=== PATIENT | female | born 1975 | race American Indian/Alaskan Native ===

== ENCOUNTER 2022-03-10 20:59 | Inpatient (IN) | payer SELFPAY ==
[2022-03-10] MEDS ORDERED: SODIUM CHLORIDE 0.9% 1000 ML 1,000 ML IV ONE (23:33)
--- NOTE | 2022-03-10 23:33 | Emergency Department Report ---
ED Shortness of Breath HPI - General Chief Complaint: Adult Asthma Stated Complaint: SOB/WHEEZING/NAUSEA Time Seen by Provider: 03/10/22 23:07 Source: patient Mode of arrival: Ambulatory Limitations: No Limitations - History of Present Illness Initial Comments: Patient is 46-year-old female with history of asthma and hypertension. Patient presented to the ER complaining of 3-week history of fever, cough productive with greenish sputum associated with shortness of breath. Patient stated that she has been having some nausea but no vomiting. She also reported watery diarrhea. She denied any chest pain or abdominal pain. No recent travel. MD Complaint: shortness of breath, cough -: week(s) (3) Known History Of: asthma Context: recent URI Associated Symptoms: cough - Related Data Allergies Allergy/AdvReac Type Severity Reaction Status Date / Time naproxen Allergy Unknown Verified 03/10/22 21:59 ED Review of Systems ROS: Stated complaint: SOB/WHEEZING/NAUSEA Other details as noted in HPI Comment: All other systems reviewed and negative Constitutional: chills. denies: fever Respiratory: cough, shortness of breath, SOB with exertion, SOB at rest, whe ezing Cardiovascular: palpitations. denies: chest pain Gastrointestinal: nausea, vomiting, diarrhea. denies: abdominal pain Musculoskeletal: denies: back pain Neurological: weakness. denies: headache, numbness, paresthesias, confusion, abnormal gait ED Physical Exam - General Limitations: No Limitations General appearance: alert, in no apparent distress - ENT ENT exam: Present: mucous membranes dry - Neck Neck exam: Present: normal inspection, full ROM. Absent: tenderness, meningismus - Respiratory Respiratory exam: Present: wheezes, rales, rhonchi, decreased breath sounds. Absent: respiratory distress, chest wall tenderness - Cardiovascular Cardiovascular Exam: Present: tachycardia - GI/Abdominal GI/Abdominal exam: Present: soft, normal bowel sounds. Absent: distended, tenderness, guarding, rebound, rigid, organomegaly, mass, bruit, pulsatile mass, hernia - Extremities Exam Extremities exam: Present: normal inspection, full ROM, normal capillary refill. Absent: tenderness - Back Exam Back exam: Present: normal inspection, full ROM. Absent: CVA tenderness (R), CVA tenderness (L) - Neurological Exam Neurological exam: Present: alert, oriented X3, CN II-XII intact, normal gait, reflexes normal. Absent: motor sensory deficit - Psychiatric Psychiatric exam: Present: normal mood - Skin Skin exam: Present: warm, intact, normal color ED Course Vital Signs 03/10/22 03/10/22 03/11/22 21:32 21:33 01:20 Temperature 99.8 F H 99.8 F H Pulse Rate 120 H Respiratory 16 16 Rate Blood Pressure 129/83 O2 Sat by Pulse 92 95 Oximetry 03/11/22 03/11/22 03/11/22 01:30 01:41 01:42 Temperature 98.9 F 98.9 F Pulse Rate 79 89 Respiratory 15 15 Rate Blood Pressure 116/76 133/73 O2 Sat by Pulse 93 97 97 Oximetry ED Medical Decision Making - Lab Data Result diagrams: 03/10/22 23:46 03/10/22 23:46 - Radiology Data Radiology results: report reviewed - Medical Decision Making Patient is 46-year-old female with history of asthma and hypertension. Patient presented to the ER complaining of 3-week history of fever, cough productive with greenish sputum associated with shortness of breath. Patient stated that she has been having some nausea but no vomiting. She also reported watery diarrhea. She denied any chest pain or abdominal pain. No recent travel. Labs reviewed and is unremarkable. CT chest with IV contrast showed multiple cavitary lesions with the largest one at eighth centimeter at the apex concerning for mycobacterial infection. Patient immediately both were negative pressure isolation. I started patient on Rocephin and Zithromax. Blood culture was obtained and sputum culture also. I discussed the patient with Dr. Jacome, he agreed to admit the patient to medical service for further management. Critical Care Time: Yes Critical care time in (mins) excluding proc time.: 35 Critical care attestation.: If time is entered above; I have spent that time in minutes in the direct care of this critically ill patient, excluding procedure time. ED Disposition Clinical Impression: Acute chest pain, Bilateral pneumonia, Pulmonary cavitary lesion Disposition: 09 ADMITTED INPATIENT Is pt being admited?: Yes Condition: Stable Instructions: Chest Pain (ED), Bacterial Pneumonia (ED)
[2022-03-11 00:07] LABS: Basophils # (Auto) 0.1 K/mm3 (0.0-0.1); Basophils % (Auto) 0.8 % (0.0-1.8); Eosinophils % (Auto) 0.8 % (0.0-4.3); Hematocrit 32.6 % (30.3-42.9); Lymphocytes # (Auto) 0.8 K/mm3 (1.2-5.4); Lymphocytes % (Auto) 13.1 % (13.4-35.0); Mean Corpuscular HGB Conc 34 % (30-34); Mean Corpuscular Volume 87 fl (79-97); Monocytes # (Auto) 0.6 K/mm3 (0.0-0.8); Platelet Count 309 K/mm3 (140-440); Red Blood Count 3.74 M/mm3 (3.65-5.03); Red Cell Distribution Width 16.4 % (13.2-15.2)
[2022-03-11 00:18] LABS: Blood Urea Nitrogen 6 mg/dL (7-17); Calcium 8.8 mg/dL (8.4-10.2); Hemolysis Index 5
[2022-03-11 00:20] LABS: BUN/Creatinine Ratio 20
[2022-03-11 00:22] LABS: Alanine Aminotransferase 13 units/L (7-56); Albumin 3.1 g/dL (3.9-5); Bilirubin,Direct 0.3 mg/dL (0-0.2)
[2022-03-11 03:08] LABS: Bilirubin,Urine NEG (Negative); Blood,Urine NEG (Negative); Color,Urine Amber (Yellow); WBC,Urine < 1.0 /HPF (0.0-6.0)
[2022-03-11 03:12] LABS: RBC,Urine < 1.0 /HPF (0.0-6.0)
--- NOTE | 2022-03-11 03:18 | Cat Scan Report ---
CT chest w con INDICATION / CLINICAL INFORMATION: Severe dyspnea TECHNIQUE: Routine CT of the chest following 100 mL Omnipaque [address] scans at this location are performed us ing CT dose reduction for ALARA by means of automated exposure control. COMPARISON: None available. FINDINGS: Multiple large cavitary lesions are identified throughout both lungs the largest within the left apex where there is a large 8 cm cavitary lesion. Multiple additional cavitary lesions and severe consoli dation are identified throughout the left upper lobe. Smaller but large cavitary lesions are identifi ed throughout the left lung. There are multiple smaller cavitary lesions within the right upper lobe, right middle lobe and right lower lobe. Small bilateral pleural effusions are present. Scattered bro nchopneumonia/tree-in-bud type opacities are present within the right lung. There is extensive and severe mediastinal and bilateral hilar adenopathy. Heart size is normal. Review of the upper abdomen demonstrates no acute findings. Review of bone windows demonstrates no significant abnormality. IMPRESSION: 1. Multiple large cavitary lesions identified throughout both lungs most significantly within the lef t upper lobe where there is a large 8 cm cavitary lesion within the left apex. Although somewhat nons pecific these cavitary lesions appear most suggestive of a severe infectious process, likely mycobact erial in etiology. Severe left upper lobe pneumonia. Recommend close follow-up after treatment to ens ure resolution. 2. Severe mediastinal adenopathy is probably reactive. 3. Small bilateral pleural effusions. Signer Name: Nando Ackerman MD Signed: 03/11/2022 3:14 AM Workstation Name: [email or web address]
[2022-03-11] MEDS ORDERED: AZITHROMYCIN/NS 500 MG/250 ML 500 MG/250 ML BAG IV ONE (03:36)
[2022-03-11] MEDS ORDERED: cefTRIAXone/NS 1 GM/50 ML 1 GM/50 ML BAG IV ONE (03:36)
[2022-03-11] MEDS ORDERED: ONDANSETRON 4 MG/2 ML INJ IV PRN (04:01)
[2022-03-11] MEDS ORDERED: MORPHINE 4 MG/1 ML INJ IV PRN (04:01)
[2022-03-11] MEDS ORDERED: MAGNESIUM HYDROXIDE (MOM) ORAL LIQD UDC PO PRN (04:01)
[2022-03-11] MEDS ORDERED: MORPHINE 2 MG/1 ML INJ IV PRN (04:01)
--- NOTE | 2022-03-11 04:13 | History and Physical Report ---
History of Present Illness Date of examination: 03/11/22 Date of admission: 03/11/2022 Chief complaint: Shortness of breath Cough History of present illness: 46-year-old -[place] female with known history of asthma and hypertension presenting to the emergency room today complaining of cough, shortness of breath and fever which has been ongoing for the past 3 weeks. Cough is said to be productive for some greenish sputum. She denies any chest pain. No headache or dizziness and no diaphoresis. Patient denies any nausea vomiting and no abdominal pain. She denies any sick contacts and no recent travel. She denies contact with anyone with COVID-19. Patient indicates that she has had 2 doses of COVID-19 vaccine but yet to receive the booster dose. Patient denies any weight loss or night sweats. Work-up in the emergency room today, chest x-ray reveals severe bilateral airspace pneumonia, cavitary with large cavitation of the left apex. CT of the chest reveals:1. Multiple large cavitary lesions identified throughout both lungs most significantly within the left upper lobe where there is a large 8 cm cavitary lesion within the left apex. Although somewhat nonspecific these cavitary lesions appear most suggestive of a severe infectious process, likely mycobacterial in etiology. Severe left upper lobe pneumonia. Recommend close follow-up after treatment to ensure resolution. 2. Severe mediastinal adenopathy is probably reactive. 3. Small bilateral pleural effusions. Labs unremarkable. Patient commenced on empiric IV antibiotics for pneumonia. Will also be placed on isolation for possible pulmonary TB. Past History Past Medical History: hypertension, other (Asthma) Past Surgical History: No surgical history Social history: no significant social history Family history: no significant family history Medications and Allergies Allergies Allergy/AdvReac Type Severity Reaction Status Date / Time naproxen Allergy Unknown Verified 03/11/22 04:22 Home Medications Medication Instructions Recorded Confirmed Last Taken Type amLODIPine 10 mg QDAY 03/11/22 03/11/22 03/10/22 History Active Meds: Active Medications Acetaminophen (Acetaminophen 325 Mg Tab) 650 mg PO Q4H PRN PRN Reason: Pain MILD(1-3)/Fever >100.5/ROSEN Heparin Sodium (Porcine) (Heparin 5,000 Unit/1 Ml Vial) 5,000 unit SUB-Q Q8HR [facility] Azithromycin (Zithromax/Ns) 500 mg in 250 mls @ 250 mls/hr IV ONCE ONE; Protocol Stop: 03/11/22 04:35 Sodium Chloride (Nacl 0.9% 1000 Ml) 1,000 mls @ 75 mls/hr IV DIRECT [facility] Ceftriaxone Sodium (Rocephin/Ns 2 Gm/100 Ml) 2 gm in 100 mls @ 200 mls/hr IV Q24H [facility]; Protocol Azithromycin (Zithromax/Ns) 500 mg in 250 mls @ 250 mls/hr IV Q24H [facility]; Protocol Magnesium Hydroxide (Magnesium Hydroxide (Mom) Oral Liqd Udc) 30 ml PO Q4H PRN PRN Reason: Constipation Morphine Sulfate (Morphine 2 Mg/1 Ml Inj) 2 mg IV Q4H PRN PRN Reason: Pain, Moderate (4-6) Morphine Sulfate (Morphine 4 Mg/1 Ml Inj) 4 mg IV Q4H PRN PRN Reason: Pain , Severe (7-10) Ondansetron HCl (Ondansetron 4 Mg/2 Ml Inj) 4 mg IV Q8H PRN PRN Reason: Nausea And Vomiting Sodium Chloride (Sodium Chloride 0.9% 10 Ml Flush Syringe) 10 ml IV BID CALLY Sodium Chloride (Sodium Chloride 0.9% 10 Ml Flush Syringe) 10 ml IV PRN PRN PRN Reason: LINE FLUSH Review of Systems Constitutional: fever, no weight loss, no chills, no poor appetite Ears, nose, mouth and throat: no nasal congestion, no sore throat Cardiovascular: no chest pain, no orthopnea, no palpitations Respiratory: cough, cough with sputum, shortness of breath Gastrointestinal: no abdominal pain, no nausea, no vomiting, no diarrhea Genitourinary Female: no pelvic pain, no flank pain, no dysuria, no hematuria Musculoskeletal: no neck pain, no low back pain Integumentary: no rash, no pruritis Neurological: no headaches, no confusion Psychiatric: no anxiety, no depression Endocrine: no polyphagia, no polydipsia, no polyuria, no nocturia Exam - Constitutional Vitals: Temp Pulse Resp BP Pulse Ox 98.9 F 89 15 133/73 97 03/11/22 01:42 03/11/22 01:42 03/11/22 01:42 03/11/22 01:42 03/11/22 01:42 General appearance: Present: no acute distress, well-nourished - EENT Eyes: Present: PERRL, EOM intact. Absent: scleral icterus ENT: hearing intact, clear oral mucosa, dentition normal - Neck Neck: Present: supple, normal ROM - Respiratory Respiratory effort: normal Respiratory: bilateral: rales (More on the left than the right) - Cardiovascular Rhythm: regular Heart Sounds: Present: S1 & S2. Absent: gallop, systolic murmur, diastolic murmur, rub, click - Extremities Extremities: no ischemia, pulses intact, pulses symmetrical, No edema, normal temperature, normal color, Full ROM Peripheral Pulses: within normal limits - Abdominal General gastrointestinal: Present: soft, non-tender, non-distended, normal bowel sounds. Absent: mass - Integumentary Integumentary: Present: clear, warm, dry, normal turgor. Absent: rash - Musculoskeletal Musculoskeletal: strength equal bilaterally - Psychiatric Psychiatric: appropriate mood/affect, intact judgment & insight, memory intact, cooperative - Neurologic Neurologic: CNII-XII intact, no focal deficits, moves all extremities HEART Score - HEART Score Troponin: Troponin T < 0.010 ng/mL (0.00-0.029) 03/10/22 23:46 Results - Labs CBC & Chem 7: 03/10/22 23:46 03/10/22 23:46 Labs: Abnormal lab results 03/10/22 03/10/22 03/10/22 Range/Units 23:46 23:46 23:46 RDW 16.4 H (13.2-15.2) % Lymph % (Auto) 13.1 L (13.4-35.0) % [place] % (Auto) 9.0 H (0.0-7.3) % Lymph # (Auto) 0.8 L (1.2-5.4) K/mm3 Seg Neutrophils % 76.3 H (40.0-70.0) % Sodium 134 L (137-145) mmol/L Chloride 94.5 L (98-107) mmol/L BUN 6 L (7-17) mg/dL Creatinine 0.3 L (0.6-1.2) mg/dL Glucose 224 H (65-100) mg/dL Direct Bilirubin 0.3 H (0-0.2) mg/dL Alkaline Phosphatase 160 H (35-129) units/L Albumin 3.1 L (3.9-5) g/dL Assessment and Plan - Patient Problems (1) Bilateral pneumonia Current Visit: Yes Status: Acute Plan to address problem: Patient placed on empiric IV antibiotics. Will await culture results. Will also be ruled out for possible TB. (2) Pulmonary cavitary lesion Current Visit: Yes Status: Acute Plan to address problem: Patient will be placed on isolation precautions. Consult placed to infectious disease and pulmonology for evaluation and recommendations. (3) Acute chest pain Current Visit: Yes Status: Acute Plan to address problem: Possibly related to the cough from pneumonia. Will monitor closely. (4) DVT prophylaxis Current Visit: Yes Status: Acute Plan to address problem: Patient placed on subcutaneous heparin. (5) Full code status Current Visit: Yes Status: Acute Plan to address problem: Patient is a full code.
--- NOTE | 2022-03-11 04:56 | XRay Report ---
CHEST 1 VIEW INDICATION / CLINICAL INFORMATION: cough. FINDINGS: SUPPORT DEVICES: None. HEART / MEDIASTINUM: No significant abnormality. LUNGS / PLEURA: Severe bilateral airspace pneumonia, cavitary and type with large cavitation of the l eft apex. Signer Name: Nando Ackerman MD Signed: 03/11/2022 4:52 AM Workstation Name: [id number]
[2022-03-11] MEDS ORDERED: AZITHROMYCIN/NS 500 MG/250 ML 500 MG/250 ML BAG IV SCH (05:00)
[2022-03-11] MEDS: HEPARIN 5,000 UNIT/1 ML VIAL SUB-Q SCH ×3 (05:13→22:51)
[2022-03-11] MEDS: SODIUM CHLORIDE 0.9% 1000 ML 1,000 ML IV SCH ×2 (05:13→10:14)
[2022-03-11] MEDS: cefTRIAXone/NS 2 GM/100 ML 2 GM/100 ML BAG IV SCH (05:14)
[2022-03-11] MEDS ORDERED: AZITHROMYCIN 250 MG TAB PO SCH (10:00)
--- NOTE | 2022-03-11 11:48 | Consultation ---
History of Present Illness - Reason for Consult Consult date: 03/11/22 cavitary lung lesion Requesting physician: LINDA PALUMBO - History of Present Illness The patient is a 46-year-old female with asthma, hypertension admitted with fever, cough, greenish sputum production going on for about 3 months beginning in late November. Upon evaluation in the ER, chest x-ray showed severe bilateral pneumonia, worse on the left side, CT revealed multiple large cavitary lesions bilaterally, large cavitary lesion in the left apex, severe mediastinal lymphadenopathy and small bilateral pleural effusions. Infectious diseases was consulted for additional evaluation. Low-grade fever here. She is otherwise on room air. 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 She reports her uncle with cancer was placed on hospice but also had TB and lived with her. Born and brought up in the [place], no international travel. Lives with her . 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 Denies any incarceration, drug use, alcohol, smoking. No history of homelessness. Has a dog, who is outdoor. Reports prior negative HIV test. Review of Systems: Negative except per HPI Past History Past Medical History: hypertension, other (Asthma) Past Surgical History: No surgical history Social history: no significant social history Family history: no significant family history Medications and Allergies Allergies Allergy/AdvReac Type Severity Reaction Status Date / Time naproxen Allergy Unknown Verified 03/11/22 04:22 Home Medications Medication Instructions Recorded Confirmed Last Taken Type amLODIPine 10 mg QDAY 03/11/22 03/11/22 03/10/22 History Active Meds: Active Medications Acetaminophen (Acetaminophen 325 Mg Tab) 650 mg PO Q4H PRN PRN Reason: Pain MILD(1-3)/Fever >100.5/ROSEN Heparin Sodium (Porcine) (Heparin 5,000 Unit/1 Ml Vial) 5,000 unit SUB-Q Q8HR [facility]ALLY Last Admin: 03/11/22 05:13 Dose: 5,000 unit Sodium Chloride (Nacl 0.9% 1000 Ml) 1,000 mls @ 75 mls/hr IV DIRECT CALLY Last Admin: 03/11/22 10:14 Dose: 75 mls/hr Ceftriaxone Sodium (Rocephin/Ns 2 Gm/100 Ml) 2 gm in 100 mls @ 200 mls/hr IV Q24H [facility]; Protocol Last Admin: 03/11/22 05:14 Dose: 200 mls/hr Magnesium Hydroxide (Magnesium Hydroxide (Mom) Oral Liqd Udc) 30 ml PO Q4H PRN PRN Reason: Constipation Morphine Sulfate (Morphine 2 Mg/1 Ml Inj) 2 mg IV Q4H PRN PRN Reason: Pain, Moderate (4-6) Morphine Sulfate (Morphine 4 Mg/1 Ml Inj) 4 mg IV Q4H PRN PRN Reason: Pain , Severe (7-10) Ondansetron HCl (Ondansetron 4 Mg/2 Ml Inj) 4 mg IV Q8H PRN PRN Reason: Nausea And Vomiting Sodium Chloride (Sodium Chloride 0.9% 10 Ml Flush Syringe) 10 ml IV BID [facility] Last Admin: 03/11/22 10:15 Dose: 10 ml Sodium Chloride (Sodium Chloride 0.9% 10 Ml Flush Syringe) 10 ml IV PRN PRN PRN Reason: LINE FLUSH Physical Examination - Physical Exam Narrative exam: Physical Exam: Constitutional: Alert, cooperative. No acute distress Head, Ears, Nose: Normocephalic, atraumatic. External ears, nose normal Eyes: Conjunctivae/corneas clear. No icterus. No ptosis. Neck: Supple, no meningeal signs Cardiovascular: S1, S2 + Respiratory: Good air entry, clear to auscultation bilaterally GI: Soft, non-tender; bowel sounds normal. No peritoneal signs Musculoskeletal: No pedal edema, no cyanosis. Skin: No rash or abscess Hem/Lymphatic: No palpable cervical or supraclavicular nodes. No lymphangitis Psych: Mood ok. Affect normal Neurological: Awake, alert, oriented. No gross abnormality - Constitutional Vitals: Vital Signs Temp Pulse Resp BP Pulse Ox 98.1 F 89 16 104/72 94 03/11/22 05:13 03/11/22 05:13 03/11/22 05:13 03/11/22 05:13 03/11/22 10:30 Temperature -Last 24 Hours Temperature 98.1 F Temperature 98.9 F Temperature 98.9 F Temperature 99.8 F Temperature 99.8 F Results - Labs CBC & Chem 7: 03/10/22 23:46 03/10/22 23:46 Labs: Abnormal lab results 03/10/22 03/10/22 03/10/22 Range/Units 23:46 23:46 23:46 RDW 16.4 H (13.2-15.2) % Lymph % (Auto) 13.1 L (13.4-35.0) % [place] % (Auto) 9.0 H (0.0-7.3) % Lymph # (Auto) 0.8 L (1.2-5.4) K/mm3 Seg Neutrophils % 76.3 H (40.0-70.0) % Sodium 134 L (137-145) mmol/L Chloride 94.5 L (98-107) mmol/L BUN 6 L (7-17) mg/dL Creatinine 0.3 L (0.6-1.2) mg/dL Glucose 224 H (65-100) mg/dL Direct Bilirubin 0.3 H (0-0.2) mg/dL Alkaline Phosphatase 160 H (35-129) units/L Albumin 3.1 L (3.9-5) g/dL - Imaging and Cardiology Chest x-ray: report reviewed, image reviewed CT scan - chest: report reviewed, image reviewed (b/l cavitary pneumonia L>R) Assessment and Plan Cultures: 03/10/2022 blood culture: In process A/P: 46-year-old female with asthma, hypertension admitted with fever, cough, greenish sputum production going on for about 3 months beginning in late November: #Bilateral cavitary pneumonia, left greater than right #Weight loss, 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
--- NOTE | 2022-03-11 12:43 | Consultation ---
History of Present Illness Consult date: 03/11/22 Requesting physician: LINDA PALUMBO Reason for consult: abnormal CXR/CT History of present illness: 46-year-old -Portuguese female with known history of asthma and hypertension presenting to the emergency room today complaining of cough, shortness of breath which has been ongoing for the past 3 months. She is on a lbuterol and Advair for the asthma. 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 She has unintentional weight loss of 15lbs in the last 2-3 months. She is a life long non smoker. 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 Cough is said to be productive for some greenish sputum. She denies any chest pain. No headache or dizziness and no diaphoresis. Patient denies any nausea vomiting and no abdominal pain. She denies any sick contacts and no recent travel. She denies contact with anyone with COVID-19. Patient indicates that she has had 2 doses of COVID-19 vaccine but yet to receive the booster dose. Denies any incarceration, drug use, alcohol. No history of homelessness. Has a dog, who is outdoor. Reports prior negative HIV test. and lives with her Work-up in the emergency room today, chest x-ray reveals severe bilateral airspace pneumonia, cavitary with large cavitation of the left apex. CT of the chest reveals:1. Multiple large cavitary lesions identified throughout both lungs most significantly within the left upper lobe where there is a large 8 cm cavitary lesion within the left apex. Although somewhat nonspecific these cavitary lesions appear most suggestive of a severe infectious process, likely mycobacterial in etiology. Severe left upper lobe pneumonia. Recommend close follow-up after treatment to ensure resolution. 2. Severe mediastinal adenopathy is probably reactive. 3. Small bilateral pleural effusions. A pulmonary consult was placed. Thank you. The patient was seen and examined. Vitals, labs, medications, chart and imaging reviewed Past History Past Medical History: hypertension, other (Asthma) Past Surgical History: No surgical history Social history: no significant social history Family history: no significant family history Medications and Allergies Allergies Allergy/AdvReac Type Severity Reaction Status Date / Time naproxen Allergy Unknown Verified 03/11/22 04:22 Home Medications Medication Instructions Recorded Confirmed Last Taken Type amLODIPine 10 mg QDAY 03/11/22 03/11/22 03/10/22 History Active Meds: Active Medications Acetaminophen (Acetaminophen 325 Mg Tab) 650 mg PO Q4H PRN PRN Reason: Pain MILD(1-3)/Fever >100.5/ROSEN Heparin Sodium (Porcine) (Heparin 5,000 Unit/1 Ml Vial) 5,000 unit SUB-Q Q8HR [facility] Last Admin: 03/11/22 05:13 Dose: 5,000 unit Sodium Chloride (Nacl 0.9% 1000 Ml) 1,000 mls @ 75 mls/hr IV DIRECT CALLY Last Admin: 03/11/22 10:14 Dose: 75 mls/hr Ceftriaxone Sodium (Rocephin/Ns 2 Gm/100 Ml) 2 gm in 100 mls @ 200 mls/hr IV Q24H [facility]; Protocol Last Admin: 03/11/22 05:14 Dose: 200 mls/hr Magnesium Hydroxide (Magnesium Hydroxide (Mom) Oral Liqd Udc) 30 ml PO Q4H PRN PRN Reason: Constipation Morphine Sulfate (Morphine 2 Mg/1 Ml Inj) 2 mg IV Q4H PRN PRN Reason: Pain, Moderate (4-6) Morphine Sulfate (Morphine 4 Mg/1 Ml Inj) 4 mg IV Q4H PRN PRN Reason: Pain , Severe (7-10) Ondansetron HCl (Ondansetron 4 Mg/2 Ml Inj) 4 mg IV Q8H PRN PRN Reason: Nausea And Vomiting Sodium Chloride (Sodium Chloride 0.9% 10 Ml Flush Syringe) 10 ml IV BID [facility] Last Admin: 03/11/22 10:15 Dose: 10 ml Sodium Chloride (Sodium Chloride 0.9% 10 Ml Flush Syringe) 10 ml IV PRN PRN PRN Reason: LINE FLUSH Review of Systems All systems: negative (as in HPI) Physical Examination Vital signs: Vital Signs Temp Pulse Resp BP Pulse Ox 99.8 F H 120 H 16 129/83 92 03/10/22 21:32 03/10/22 21:32 03/10/22 21:32 03/10/22 21:32 03/10/22 21:32 General appearance: no acute distress, alert, other (thin, chronically ill looking) Eyes: non-icteric ENT: oropharynx moist Neck: supple, no lymphadenopathy Effort: normal Ascultation: Bilateral: diminished breath sounds, rhonchi Cardiovascular: regular rate and rhythm, other (S1,S2) Gastrointestinal: normoactive bowel sounds, soft, non-tender, tender Integumentary: normal Extremities: no cyanosis, no edema, pulses normal normal mental status, non-focal exam, pupils equal and round, CN II-XII normal, motor strength normal and mood appropriate, affect normal Results - Laboratory Findings CBC and BMP: 03/10/22 23:46 03/10/22 23:46 Abnormal lab findings: Abnormal Labs 03/10/22 03/10/22 03/10/22 23:46 23:46 23:46 RDW 16.4 H Lymph % (Auto) 13.1 L [place] % (Auto) 9.0 H Lymph # (Auto) 0.8 L Seg Neutrophils % 76.3 H Sodium 134 L Chloride 94.5 L BUN 6 L Creatinine 0.3 L Glucose 224 H Direct Bilirubin 0.3 H Alkaline Phosphatase 160 H Albumin 3.1 L - Diagnostic Findings CT scan - chest: image reviewed (Destroyed left lung with nodular alveolar densities in the right lung) Assessment and Plan Abnormal CXR/CT scan-Bilateral cavitary infiltrates Mediastinal and hilar adenopathy Weight loss, anorexia with history of TB exposure History of LTBI treatment in 2020 with once weekly therapy, 4 drug therapy per patient x 12 weeks Recommendations -Continue with airborne isolation -Sputum for AFB x3, quantiferon, HIV screen -This does not appear to be an acute bacterial pneumonia, will recommend that we hold antibiotics for now -Supplemental oxygen if needed to keep SpO2 89-92% -Bronchodilators therapy- avoid nebulized therapies -Send labs fro JOHN with reflex, LUC to r/o collagen vascular diseases as possible reason for cavitary infiltrates -Will need bronchoscopy with microbiology brushings, cytology brushings and smears. The differentials include fungal infections, Sarcoidosis and cavitary malignancy. Thank you for consult. Discussed care plan wiht the patient and answered all her questions.
--- NOTE | 2022-03-11 15:15 | Event Note ---
Date: 03/11/22 patient seen and examined And admitted with bilateral cavitary lesion Highly suspicious for pulmonary TB versus fungal infection versus underlying malignancy AFB smear ordered, plan for bronchoscopy next week Continue empiric antibiotics for now
[2022-03-11] MEDS: ACETAMINOPHEN 325 MG TAB PO PRN (17:48)
[2022-03-12] MEDS: SODIUM CHLORIDE 0.9% 1000 ML 1,000 ML IV SCH ×2 (02:15→19:36)
[2022-03-12] MEDS ORDERED: AZITHROMYCIN/NS 500 MG/250 ML 500 MG/250 ML BAG IV SCH (05:00)
[2022-03-12] MEDS: cefTRIAXone/NS 2 GM/100 ML 2 GM/100 ML BAG IV SCH (06:05)
[2022-03-12] MEDS: HEPARIN 5,000 UNIT/1 ML VIAL SUB-Q SCH ×3 (06:05→21:49)
[2022-03-12 06:40] LABS: Basophils % (Auto) 0.9 % (0.0-1.8); Eosinophils # (Auto) 0.1 K/mm3 (0.0-0.4); Eosinophils % (Auto) 1.1 % (0.0-4.3); Hematocrit 30.7 % (30.3-42.9); Hemoglobin 10.1 gm/dl (10.1-14.3); Lymphocytes # (Auto) 0.7 K/mm3 (1.2-5.4); Lymphocytes % (Auto) 14.6 % (13.4-35.0); Mean Corpuscular HGB Conc 33 % (30-34); Mean Corpuscular Volume 87 fl (79-97); Monocytes # (Auto) 0.5 K/mm3 (0.0-0.8); Monocytes % (Auto) 10.4 % (0.0-7.3); Platelet Count 286 K/mm3 (140-440); Red Blood Count 3.54 M/mm3 (3.65-5.03); Red Cell Distribution Width 16.1 % (13.2-15.2)
[2022-03-12 06:43] LABS: Blood Urea Nitrogen 2 mg/dL (7-17); Hemolysis Index 10
[2022-03-12 06:45] LABS: BUN/Creatinine Ratio 10
--- NOTE | 2022-03-12 17:57 | Progress Note ---
Assessment and Plan 46-year-old -[place] female with known history of asthma and hypertension presenting to the emergency room complaining of cough, shortness of breath and fever which has been ongoing for the past 3 weeks. Patient brother had h/o TB and she was treated for positive PPD. Work-up in the emergency room, chest x-ray reveals severe bilateral airspace pneumonia, cavitary with large cavitation of the left apex. CT of the chest reveals:1. Multiple large cavitary lesions identified throughout both lungs most significantly within the left upper lobe where there is a large 8 cm cavitary lesion within the left apex. Although somewhat nonspecific these cavitary lesions appear most suggestive of a severe infectious process, likely mycobacterial in etiology. Severe left upper lobe pneumonia. Recommend close follow-up after treatment to ensure resolution. 2. Severe mediastinal adenopathy is probably reactive. 3. Small bilateral pleural effusions. Patient commenced on empiric IV antibiotics for pneumonia, placed on isolation for possible pulmonary TB. 03/12: cont empiric abx, follow afb smear - if neg plan for bronch on Monday. A/P (1) Bilateral pneumonia Current Visit: Yes Status: Acute Plan to address problem: Patient placed on empiric IV antibiotics. Will await culture results. Will also be ruled out for possible TB. (2) Pulmonary cavitary lesion Current Visit: Yes Status: Acute Plan to address problem: Patient will be placed on isolation precautions. Consult placed to infectious disease and pulmonology for evaluation and recommendations. (3) Acute chest pain Current Visit: Yes Status: Acute Plan to address problem: Possibly related to the cough from pneumonia. Will monitor closely. (4) DVT prophylaxis Current Visit: Yes Status: Acute Plan to address problem: Patient placed on subcutaneous heparin. (5) Full code status Current Visit: Yes Status: Acute Plan to address problem: Patient is a full code. Subjective Date of service: 03/12/22 Interval history: Patient seen and examined. Medical records and medication list reviewed. No acute event overnight noted by the RN. Patient has difficulty breathing on exertion. cough improved Patient is tolerating diet. Discussed plan of care at bedside with patient. Objective - Exam Narrative Exam: GENERAL: AAF lying on bed appeared to be in no discomfort. HEENT: Normocephalic. Atraumatic. No conjunctival congestion or icterus. Patient has moist mucous membranes. NECK: Supple. Trachea midline. CHEST/LUNGS: breathing nonlabored. pt on RA HEART/CARDIOVASCULAR: Regular in rate and rhythm. S1 and S2 positive. ABDOMEN: Abdomen is soft, nontender. Patient has normal bowel sounds. SKIN: There is no rash. Warm and dry. NEURO: No focal motor deficit. Follows command. MUSCULOSKELETAL: No joint effusion or tenderness. EXTRIMITY: No edema, no cyanosis or clubbing. PSYCH: Cooperative. - Constitutional Vitals: Vital Signs - 12hr 03/12/22 03/12/22 03/12/22 10:00 12:06 16:23 Temperature 98.5 F 99.8 F H Pulse Rate 100 H 101 H Respiratory 18 18 Rate Blood Pressure 109/76 126/79 O2 Sat by Pulse 96 93 92 Oximetry - Labs CBC & Chem 7: 03/12/22 05:53 03/12/22 05:53 Labs: Abnormal lab results 03/12/22 03/12/22 Range/Units 05:53 05:53 RBC 3.54 L (3.65-5.03) M/mm3 RDW 16.1 H (13.2-15.2) % Real % (Auto) 10.4 H (0.0-7.3) % Lymph # (Auto) 0.7 L (1.2-5.4) K/mm3 Seg Neutrophils % 73.0 H (40.0-70.0) % Sodium 136 L (137-145) mmol/L Potassium 3.1 L (3.6-5.0) mmol/L BUN 2 L (7-17) mg/dL Creatinine 0.2 L (0.6-1.2) mg/dL Glucose 240 H (65-100) mg/dL Calcium 8.0 L (8.4-10.2) mg/dL HEART Score - HEART Score Troponin: Troponin T < 0.010 ng/mL (0.00-0.029) 03/10/22 23:46
[2022-03-13] MEDS: SODIUM CHLORIDE 0.9% 1000 ML 1,000 ML IV SCH (05:16)
[2022-03-13] MEDS: cefTRIAXone/NS 2 GM/100 ML 2 GM/100 ML BAG IV SCH (05:17)
[2022-03-13] MEDS: HEPARIN 5,000 UNIT/1 ML VIAL SUB-Q SCH ×3 (05:23→21:22)
[2022-03-13] MEDS ORDERED: POTASSIUM CHLORIDE ER 20 MEQ TAB PO ONE (06:21)
[2022-03-13 07:44] LABS: Blood Urea Nitrogen 3 mg/dL (7-17); Calcium 8.4 mg/dL (8.4-10.2); Hemolysis Index 8
[2022-03-13 07:50] LABS: BUN/Creatinine Ratio 10
[2022-03-13] MEDS ORDERED: POTASSIUM CHLORIDE ER 20 MEQ TAB PO NR (11:30)
--- NOTE | 2022-03-13 11:41 | Progress Note ---
Subjective Date of service: 03/13/22 Interval history: 46-year-old -[place]i female with known history of asthma and hypertension presenting to the emergency room today complaining of cough, shortness of breath which has been ongoing for the past 3 months. She is on albuterol and Advair for the asthma. 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 She has unintentional weight loss of 15lbs in the last 2-3 months. She is a life long non smoker. 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 Cough is said to be productive for some greenish sputum. She denies any chest pain. No headache or dizziness and no diaphoresis. Patient denies any nausea vomiting and no abdominal pain. She denies any sick contacts and no recent travel. She denies contact with anyone with COVID-19. Patient indicates that she has had 2 doses of COVID-19 vaccine but yet to receive the booster dose. Denies any incarceration, drug use, alcohol. No history of homelessness. Has a dog, who is outdoor. Reports prior negative HIV test. and lives with her Work-up in the emergency room today, chest x-ray reveals severe bilateral airspace pneumonia, cavitary with large cavitation of the left apex. CT of the chest reveals:1. Multiple large cavitary lesions identified throughout both lungs most significantly within the left upper lobe where there is a large 8 cm cavitary lesion within the left apex. Although somewhat nonspecific these cavitary lesions appear most suggestive of a severe infectious process, likely mycobacterial in etiology. Severe left upper lobe pneumonia. Recommend close follow-up after treatment to ensure resolution. 2. Severe mediastinal adenopathy is probably reactive. 3. Small bilateral pleural effusions. 03/13 patient is alert and oriented, complains of productive cough with greenish sputum. Denies any chest pain, fever or chills. Lab results reviewed ID and pulmonary notes reviewed and appreciated Assessment and plan Bilateral cavitary pneumonia Continue with ceftriaxone per ID recommendations Possible bronchoscopy next week Sputum for AFB x3 QuantiFERON gold test as ordered by ID Hypokalemia Potassium supplemented Monitor electrolytes Hypertension Patient is normotensive off medications History of latent TB diagnosed 2 years ago States she was treated for 12 weeks Hyperglycemia Check A1c Initiate insulin sliding scale coverage Objective - Constitutional Vitals: Vital Signs - 12hr 03/13/22 03/13/22 06:41 07:29 Temperature 98.2 F Pulse Rate 105 H Respiratory 18 Rate Blood Pressure 127/84 O2 Sat by Pulse 96 96 Oximetry General appearance: Present: no acute distress - EENT Eyes: EOM intact ENT: hearing intact, clear oral mucosa - Neck Neck: supple, normal ROM - Respiratory Respiratory effort: normal Respiratory: bilateral: diminished - Cardiovascular Rhythm: regular Heart Sounds: Present: S1 & S2 Extremities: No edema - Gastrointestinal General gastrointestinal: Present: soft, non-tender Rectal Exam: deferred - Genitourinary Female genitourinary: deferred - Integumentary Integumentary: clear - Musculoskeletal Musculoskeletal: strength equal bilaterally - Neurologic Neurologic: no focal deficits, moves all extremities - Psychiatric Psychiatric: appropriate mood/affect - Labs CBC & Chem 7: 03/12/22 05:53 03/13/22 06:58 Labs: Abnormal lab results 03/13/22 Range/Units 06:58 Sodium 135 L (137-145) mmol/L Potassium 3.0 L (3.6-5.0) mmol/L Chloride 96.5 L (98-107) mmol/L BUN 3 L (7-17) mg/dL Creatinine 0.3 L (0.6-1.2) mg/dL Glucose 245 H (65-100) mg/dL HEART Score - HEART Score Troponin: Troponin T < 0.010 ng/mL (0.00-0.029) 03/10/22 23:46
--- NOTE | 2022-03-13 13:21 | Progress Note ---
Assessment and Plan Abnormal CXR/CT scan-Bilateral cavitary infiltrates Mediastinal and hilar adenopathy Weight loss, anorexia with history of TB exposure History of LTBI treatment in 2020 with once weekly therapy, 4 drug therapy per patient x 12 weeks Recommendations -Continue with airborne isolation -Sputum for AFB x3, quantiferon, HIV screen -This does not appear to be an acute bacterial pneumonia, will recommend that we hold antibiotics for now -Supplemental oxygen if needed to keep SpO2 89-92% -Bronchodilators therapy- avoid nebulized therapies -Send labs fro JOHN with reflex, LUC to r/o collagen vascular diseases as possible reason for cavitary infiltrates -Will need bronchoscopy with microbiology brushings, cytology brushings and smears. The differentials include fungal infections, Sarcoidosis and cavitary malignancy. Thank you for consult. Discussed care plan wiht the patient and answered all her questions. Subjective Date of service: 03/13/22 Objective Vital Signs - 12hr 03/13/22 03/13/22 03/13/22 06:41 07:29 11:25 Temperature 98.2 F 98.8 F Pulse Rate 105 H 86 Respiratory 18 18 Rate Blood Pressure 127/84 123/79 O2 Sat by Pulse 96 96 97 Oximetry Constitutional: no acute distress, alert, other (thin, chronically ill looking) Eyes: non-icteric ENT: oropharynx moist Neck: supple, no lymphadenopathy Effort: normal Ascultation: Bilateral: diminished breath sounds, rhonchi Cardiovascular: regular rate and rhythm, other (S1,S2) Gastrointestinal: normoactive bowel sounds, soft, non-tender, tender Integumentary: normal Extremities: no cyanosis, no edema, pulses normal Neurologic: normal mental status, non-focal exam, pupils equal and round, CN II- XII normal, motor strength normal and Psychiatric: mood appropriate, affect normal CBC and BMP: 03/12/22 05:53 03/13/22 06:58 Abnormal lab findings: Abnormal Labs 03/10/22 03/10/22 03/10/22 23:46 23:46 23:46 RBC RDW 16.4 H Lymph % (Auto) 13.1 L Bates % (Auto) 9.0 H Lymph # (Auto) 0.8 L Seg Neutrophils % 76.3 H Sodium 134 L Potassium Chloride 94.5 L BUN 6 L Creatinine 0.3 L Glucose 224 H Calcium Direct Bilirubin 0.3 H Alkaline Phosphatase 160 H Albumin 3.1 L 03/12/22 03/12/22 03/13/22 05:53 05:53 06:58 RBC 3.54 L RDW 16.1 H Lymph % (Auto) Bates % (Auto) 10.4 H Lymph # (Auto) 0.7 L Seg Neutrophils % 73.0 H Sodium 136 L 135 L Potassium 3.1 L 3.0 L Chloride 96.5 L BUN 2 L 3 L Creatinine 0.2 L 0.3 L Glucose 240 H 245 H Calcium 8.0 L Direct Bilirubin Alkaline Phosphatase Albumin
[2022-03-13] MEDS: INSULIN LISPRO 100 UNIT/ML SUB-Q SCH ×2 (16:30→21:37)
[2022-03-13] MEDS: ACETAMINOPHEN 325 MG TAB PO PRN (17:12)
[2022-03-14] MEDS: HEPARIN 5,000 UNIT/1 ML VIAL SUB-Q SCH ×2 (05:02→14:45)
[2022-03-14] MEDS: cefTRIAXone/NS 2 GM/100 ML 2 GM/100 ML BAG IV SCH (05:02)
[2022-03-14] MEDS: ACETAMINOPHEN 325 MG TAB PO PRN ×2 (05:02→16:18)
[2022-03-14 07:45] LABS: Hematocrit 30.6 % (30.3-42.9); Hemoglobin 9.8 gm/dl (10.1-14.3); Mean Corpuscular HGB Conc 32 % (30-34); Mean Corpuscular Volume 88 fl (79-97); Platelet Count 310 K/mm3 (140-440); Red Blood Count 3.47 M/mm3 (3.65-5.03); Red Cell Distribution Width 16.3 % (13.2-15.2)
[2022-03-14 08:12] LABS: Blood Urea Nitrogen 3 mg/dL (7-17); Calcium 8.9 mg/dL (8.4-10.2); Hemolysis Index 0
[2022-03-14 08:20] LABS: BUN/Creatinine Ratio 10
[2022-03-14] MEDS: INSULIN LISPRO 100 UNIT/ML SUB-Q SCH ×3 (10:17→18:30)
--- NOTE | 2022-03-14 10:47 | Progress Note ---
Assessment and Plan Abnormal CXR/CT scan Bilateral cavitary infiltrates Mediastinal and hilar adenopathy Weight loss and Anorexia H/O of TB exposure H/O LTBI treatment in 2019 (once weekly therapy, 4 drug therapy per patient x 12 weeks) - Continue airborne isolation - Sputum for AFB x3 & quantiferon testing - HIV screen - tentative bronchoscopy once active TB ruled out - supplemental oxygen to keep O2 sats > 90% - bronchodilators (CHRIS) with pulm hygiene per RT - continue to avoid nephrotoxins, renally dose all medications - continue mobility protocols to prevent pressure ulcers - PT/OT as tolerated - Wound care per RN/WCT - continue accuchecks with glycemic control per SSI for target blood glucose < 180 mg/dL - tobacco abstinence strongly counseled at the bedside - home oxygen evaluation at discharge - prn analgesia per pain score - GI & VTE prophylaxis - Flu & pneumovax per protocol - Pulmonary out patient follow up for PFTs and optimization of respiratory status - continue other care per attending / other consultants ... re-evaluate in am & prn Subjective Date of service: 03/14/22 Principal diagnosis: Abnormal CT scan; Sebastien. Cavitary Pneumonia; Mediastinal and hilar adenopathy Interval history: Patient is seen today for: Abnormal CXR/CT scan; Bilateral cavitary infiltrates; Mediastinal and hilar adenopathy; Weight loss and Anorexia ; H/O of TB exposure; H/O LTBI treatment in 2019 Seen and examined at bedside; 24hour events reviewed; nursing and respiratory care staff consulted; no adverse overnight events reported to me; resting in bed; denies acute chest pains or SOB; denies hemoptysis; denies night sweats / fevers / chills Objective Vital Signs - 12hr 03/14/22 03:55 Temperature 100.5 F H Pulse Rate 95 H Respiratory 18 Rate Blood Pressure 116/79 O2 Sat by Pulse 90 Oximetry Constitutional: no acute distress, alert, other (thin, chronically ill looking) Eyes: non-icteric ENT: oropharynx moist Neck: supple, no lymphadenopathy Effort: normal Ascultation: Bilateral: diminished breath sounds, rhonchi Percussion: Bilateral: not dull Cardiovascular: regular rate and rhythm, other (S1,S2) Gastrointestinal: normoactive bowel sounds, soft, non-tender, tender, non- distended Integumentary: normal Extremities: no cyanosis, no edema, pulses normal Neurologic: normal mental status, non-focal exam, pupils equal and round, CN II- XII normal, motor strength normal and Psychiatric: mood appropriate, affect normal CBC and BMP: 03/14/22 07:05 03/14/22 07:05 Abnormal lab findings: Abnormal Labs 03/10/22 03/10/22 03/10/22 23:46 23:46 23:46 RBC Hgb RDW 16.4 H Lymph % (Auto) 13.1 L [place] % (Auto) 9.0 H Lymph # (Auto) 0.8 L Seg Neutrophils % 76.3 H Sodium 134 L Potassium Chloride 94.5 L BUN 6 L Creatinine 0.3 L Glucose 224 H POC Glucose Hemoglobin A1c Calcium Direct Bilirubin 0.3 H Alkaline Phosphatase 160 H Albumin 3.1 L 03/12/22 03/12/22 03/13/22 05:53 05:53 06:58 RBC 3.54 L Hgb RDW 16.1 H Lymph % (Auto) [place] % (Auto) 10.4 H Lymph # (Auto) 0.7 L Seg Neutrophils % 73.0 H Sodium 136 L 135 L Potassium 3.1 L 3.0 L Chloride 96.5 L BUN 2 L 3 L Creatinine 0.2 L 0.3 L Glucose 240 H 245 H POC Glucose Hemoglobin A1c Calcium 8.0 L Direct Bilirubin Alkaline Phosphatase Albumin 03/13/22 03/13/22 03/13/22 13:12 16:51 21:09 RBC Hgb RDW Lymph % (Auto) [place] % (Auto) Lymph # (Auto) Seg Neutrophils % Sodium Potassium Chloride BUN Creatinine Glucose POC Glucose 135 H 184 H Hemoglobin A1c 9.1 H Calcium Direct Bilirubin Alkaline Phosphatase Albumin 03/14/22 03/14/22 07:05 07:05 RBC 3.47 L Hgb 9.8 L RDW 16.3 H Lymph % (Auto) [place] % (Auto) Lymph # (Auto) Seg Neutrophils % Sodium Potassium Chloride BUN 3 L Creatinine 0.3 L Glucose 203 H POC Glucose Hemoglobin A1c Calcium Direct Bilirubin Alkaline Phosphatase Albumin Allied health notes reviewed: nursing
--- NOTE | 2022-03-14 13:19 | Progress Note ---
Assessment and Plan Cultures: 03/10/2022 blood culture: no growth 03/11/2022 HIV: Nonreactive 03/12/2022 sputum culture: In process A/P: 46-year-old female with asthma, hypertension admitted with fever, cough, greenish sputum production going on for about 3 months beginning in late November: #Bilateral cavitary pneumonia, left greater than right #Weight loss, anorexia with history of TB exposure #History of LTBI treatment about 2 years ago with once weekly therapy x 12 weeks (likely INH + Rifapentine) Recs: -airborne precautions, F/U AFB x3, QuantiFERON -Follow-up pulmonary plans for bronchoscopy, BAL for AFB, fungal, routine cultures as well as biopsies -Given fever, switched to IV Zosyn -f/u JOHN RANDHAWA MD, FACP, [facility] O: [phone] F: [phone] C: [phone] Subjective Date of service: 03/14/22 Interval history: Cough present. Having fever, T-max over the weekend was 102.9 F, another fever of 101.3 F yesterday, 100.5 today. Objective - Exam Narrative Exam: Physical Exam: Constitutional: Alert, cooperative. No acute distress Head, Ears, Nose: Normocephalic, atraumatic. External ears, nose normal Eyes: Conjunctivae/corneas clear. No icterus. No ptosis. Neck: Supple, no meningeal signs Cardiovascular: S1, S2 + Respiratory: AE fair bilaterally GI: Soft, non-tender; bowel sounds normal. No peritoneal signs Musculoskeletal: No pedal edema, no cyanosis. Skin: No rash or abscess Hem/Lymphatic: No palpable cervical or supraclavicular nodes. No lymphangitis Psych: Mood ok. Affect normal Neurological: Awake, alert, oriented. No gross abnormality - Constitutional Vitals: Vital Signs Temp Pulse Resp BP Pulse Ox 100.5 F H 95 H 18 116/79 90 03/14/22 03:55 03/14/22 03:55 03/14/22 03:55 03/14/22 03:55 03/14/22 03:55 Temperature -Last 24 Hours Temperature 100.5 F Temperature 98.9 F Temperature 97.6 F Temperature 101.3 F - Labs CBC & Chem 7: 03/14/22 07:05 03/14/22 07:05 Labs: Abnormal lab results 03/13/22 03/13/22 03/13/22 Range/Units 13:12 16:51 21:09 RBC (3.65-5.03) M/mm3 Hgb (10.1-14.3) gm/dl RDW (13.2-15.2) % BUN (7-17) mg/dL Creatinine (0.6-1.2) mg/dL Glucose (65-100) mg/dL POC Glucose 135 H 184 H (70-105) mg/dL Hemoglobin A1c 9.1 H (4-6) % 03/14/22 03/14/22 Range/Units 07:05 07:05 RBC 3.47 L (3.65-5.03) M/mm3 Hgb 9.8 L (10.1-14.3) gm/dl RDW 16.3 H (13.2-15.2) % BUN 3 L (7-17) mg/dL Creatinine 0.3 L (0.6-1.2) mg/dL Glucose 203 H (65-100) mg/dL POC Glucose (70-105) mg/dL Hemoglobin A1c (4-6) %
[2022-03-14] MEDS: PIPERACIL/TAZOBACTA 4.5/NS 100 4.5 GM/100 ML VIAL IV SCH (14:45)
--- NOTE | 2022-03-14 16:21 | Progress Note ---
Assessment and Plan 46-year-old -Spanish female with known history of asthma and hypertension presenting to the emergency room complaining of cough, shortness of breath and fever which has been ongoing for the past 3 weeks. Patient brother had h/o TB and she was treated for positive PPD. Work-up in the emergency room, chest x-ray reveals severe bilateral airspace pneumonia, cavitary with large cavitation of the left apex. CT of the chest reveals:1. Multiple large cavitary lesions identified throughout both lungs most significantly within the left upper lobe where there is a large 8 cm cavitary lesion within the left apex. Although somewhat nonspecific these cavitary lesions appear most suggestive of a severe infectious process, likely mycobacterial in etiology. Severe left upper lobe pneumonia. Recommend close follow-up after treatment to ensure resolution. 2. Severe mediastinal adenopathy is probably reactive. 3. Small bilateral pleural effusions. Patient commenced on empiric IV antibiotics for pneumonia, placed on isolation for possible pulmonary TB. 03/12: cont empiric abx, follow afb smear - if neg plan for bronch on Monday. 03/13 patient is alert and oriented, complains of productive cough with greenish sputum. Denies any chest pain, fever or chills. Lab results reviewed, ID and pulmonary notes reviewed and appreciated 03/14: AFB smear pending, bronch pending on AFB smear - reorder the test. clinically improved. follow with supportive care. Assessment and plan --Bilateral cavitary pneumonia Continue with ceftriaxone per ID recommendations Possible bronchoscopy next week Sputum for AFB x3 QuantiFERON gold test as ordered by ID --Hypokalemia Potassium supplemented Monitor electrolytes --Hypertension Patient is normotensive off medications --History of latent TB diagnosed 2 years ago States she was treated for 12 weeks --Hyperglycemia Check A1c Initiate insulin sliding scale coverage Subjective Date of service: 03/14/22 Interval history: Patient seen and examined. Medical records and medication list reviewed. No acute event overnight noted by the RN. Patient has difficulty breathing on exertion but improved. cough improved Patient is tolerating diet. Discussed plan of care at bedside with patient. Objective - Exam Narrative Exam: GENERAL: AAF lying on bed appeared to be in no discomfort. HEENT: Normocephalic. Atraumatic. No conjunctival congestion or icterus. Patient has moist mucous membranes. NECK: Supple. Trachea midline. CHEST/LUNGS: breathing nonlabored. pt on RA HEART/CARDIOVASCULAR: Regular in rate and rhythm. S1 and S2 positive. ABDOMEN: Abdomen is soft, nontender. Patient has normal bowel sounds. SKIN: There is no rash. Warm and dry. NEURO: No focal motor deficit. Follows command. MUSCULOSKELETAL: No joint effusion or tenderness. EXTRIMITY: No edema, no cyanosis or clubbing. PSYCH: Cooperative. - Labs CBC & Chem 7: 03/14/22 07:05 03/14/22 07:05 Labs: Abnormal lab results 03/13/22 03/13/22 03/14/22 Range/Units 16:51 21:09 07:05 RBC 3.47 L (3.65-5.03) M/mm3 Hgb 9.8 L (10.1-14.3) gm/dl RDW 16.3 H (13.2-15.2) % BUN (7-17) mg/dL Creatinine (0.6-1.2) mg/dL Glucose (65-100) mg/dL POC Glucose 135 H 184 H (70-105) mg/dL 03/14/22 03/14/22 03/14/22 Range/Units 07:05 08:53 11:17 RBC (3.65-5.03) M/mm3 Hgb (10.1-14.3) gm/dl RDW (13.2-15.2) % BUN 3 L (7-17) mg/dL Creatinine 0.3 L (0.6-1.2) mg/dL Glucose 203 H (65-100) mg/dL POC Glucose 166 H 131 H (70-105) mg/dL HEART Score - HEART Score Troponin: Troponin T < 0.010 ng/mL (0.00-0.029) 03/10/22 23:46
[2022-03-15] MEDS: INSULIN LISPRO 100 UNIT/ML SUB-Q SCH ×5 (00:11→22:50)
[2022-03-15] MEDS: PIPERACIL/TAZOBACTA 4.5/NS 100 4.5 GM/100 ML VIAL IV SCH ×4 (00:19→22:49)
[2022-03-15] MEDS: HEPARIN 5,000 UNIT/1 ML VIAL SUB-Q SCH ×4 (00:20→22:49)
--- NOTE | 2022-03-15 09:02 | Progress Note ---
Assessment and Plan Assessment and plan: 46-year-old -Maur[place] female with known history of asthma and hypertension presenting to the emergency room complaining of cough, shortness of breath and fever which has been ongoing for the past 3 weeks. Patient brother had h/o TB and she was treated for positive PPD. Work-up in the emergency room, chest x-ray reveals severe bilateral airspace pneumonia, cavitary with large cavitation of the left apex. CT of the chest reveals:1. Multiple large cavitary lesions identified throughout both lungs most significantly within the left upper lobe where there is a large 8 cm cavitary lesion within the left apex. Although somewhat nonspecific these cavitary lesions appear most suggestive of a severe infectious process, likely mycobacterial in etiology. Severe left upper lobe pneumonia. Recommend close follow-up after treatment to ensure resolution. 2. Severe mediastinal adenopathy is probably reactive. 3. Small bilateral pleural effusions. Patient commenced on empiric IV antibiotics for pneumonia, placed on isolation for possible pulmonary TB. 03/12: cont empiric abx, follow afb smear - if neg plan for bronch on Monday. 03/13 patient is alert and oriented, complains of productive cough with greenish sputum. Denies any chest pain, fever or chills. Lab results reviewed, ID and pulmonary notes reviewed and appreciated 03/14: AFB smear pending, bronch pending on AFB smear - reorder the test. clinically improved. follow with supportive care. 03/15; follow-up TB work-up, follow consultants's evaluation and recommendations Possible bronchoscopy per pulmonary Assessment and plan --Bilateral cavitary pneumonia Currently patient is on Zosyn per ID Possible bronchoscopy next week per pulmonary Follow-up sputum for AFB x3 QuantiFERON gold test as ordered by ID Continue airborne precautions Follow pulmonary recommendations --Hypokalemia; Potassium supplemented Monitor electrolytes --Hypertension Patient is normotensive off medications --History of latent TB diagnosed 2 years ago States she was treated for 12 weeks ID following --Hyperglycemia/type 2 diabetes mellitus Check A1c 9.1 Accu-Chek sliding scale coverage ADA diet Long-acting insulin as needed -- Moderate protein calorie malnutrition; -- Moderate hypoalbuminemia; albumin 3.1 Nutrition supplements Nutrition consult if needed DVT prophylaxis; Subcu heparin We will closely monitor the patient and adjust management as needed Plan of care reviewed with the patient and her nurse Consults and recommendations noted and appreciated History Interval history: I have seen and examined the patient at the bedside Patient's chart and medications reviewed Patient has no new complaints Not in acute distress Vital signs stable Hospitalist Physical - Constitutional Vitals: Temp Pulse Resp BP Pulse Ox 98.5 F 92 H 16 116/73 91 03/15/22 05:32 03/15/22 05:32 03/15/22 05:32 03/15/22 05:32 03/15/22 05:32 General appearance: Present: no acute distress, well-nourished - EENT Eyes: Present: PERRL, EOM intact - Neck Neck: Present: supple, normal ROM - Respiratory Respiratory effort: normal Respiratory: bilateral: diminished, rhonchi, negative: rales, wheezing - Cardiovascular Rhythm: regular Heart Sounds: Present: S1 & S2 - Extremities Extremities: no ischemia, No edema - Abdominal General gastrointestinal: soft, non-tender, non-distended, normal bowel sounds - Integumentary Integumentary: Present: clear, warm - Psychiatric Psychiatric: appropriate mood/affect, cooperative - Neurologic Neurologic: CNII-XII intact, moves all extremities HEART Score - HEART Score Troponin: Troponin T < 0.010 ng/mL (0.00-0.029) 03/10/22 23:46 Results - Labs CBC & Chem 7: 03/14/22 07:05 03/14/22 07:05 Labs: Laboratory Last Values WBC 4.8 K/mm3 (4.5-11.0) 03/14/22 07:05 RBC 3.47 M/mm3 (3.65-5.03) L 03/14/22 07:05 Hgb 9.8 gm/dl (10.1-14.3) L 03/14/22 07:05 Hct 30.6 % (30.3-42.9) 03/14/22 07:05 MCV 88 fl (79-97) 03/14/22 07:05 MCH 28 pg (28-32) 03/14/22 07:05 MCHC 32 % (30-34) 03/14/22 07:05 RDW 16.3 % (13.2-15.2) H 03/14/22 07:05 Plt Count 310 K/mm3 (140-440) 03/14/22 07:05 Lymph % (Auto) 14.6 % (13.4-35.0) 03/12/22 05:53 Grand % (Auto) 10.4 % (0.0-7.3) H 03/12/22 05:53 Eos % (Auto) 1.1 % (0.0-4.3) 03/12/22 05:53 Baso % (Auto) 0.9 % (0.0-1.8) 03/12/22 05:53 Lymph # (Auto) 0.7 K/mm3 (1.2-5.4) L 03/12/22 05:53 Grand # (Auto) 0.5 K/mm3 (0.0-0.8) 03/12/22 05:53 Eos # (Auto) 0.1 K/mm3 (0.0-0.4) 03/12/22 05:53 Baso # (Auto) 0.0 K/mm3 (0.0-0.1) 03/12/22 05:53 Seg Neutrophils % 73.0 % (40.0-70.0) H 03/12/22 05:53 Seg Neutrophils # 3.7 K/mm3 (1.8-7.7) 03/12/22 05:53 Sodium 137 mmol/L (137-145) 03/14/22 07:05 Potassium 3.9 mmol/L (3.6-5.0) D 03/14/22 07:05 Chloride 100.0 mmol/L (98-107) 03/14/22 07:05 Carbon Dioxide 25 mmol/L (22-30) 03/14/22 07:05 Anion Gap 16 mmol/L 03/14/22 07:05 BUN 3 mg/dL (7-17) L 03/14/22 07:05 Creatinine 0.3 mg/dL (0.6-1.2) L 03/14/22 07:05 Estimated GFR > 60 ml/min 03/14/22 07:05 BUN/Creatinine Ratio 10 % 03/14/22 07:05 Glucose 203 mg/dL (65-100) H 03/14/22 07:05 POC Glucose 142 mg/dL (70-105) H 03/14/22 22:13 Hemoglobin A1c 9.1 % (4-6) H 03/13/22 13:12 Lactic Acid 1.50 mmol/L (0.7-2.0) 03/10/22 23:46 Calcium 8.9 mg/dL (8.4-10.2) 03/14/22 07:05 Total Bilirubin 1.10 mg/dL (0.1-1.2) 03/10/22 23:46 Direct Bilirubin 0.3 mg/dL (0-0.2) H 03/10/22 23:46 Indirect Bilirubin 0.8 mg/dL 03/10/22 23:46 AST 20 units/L (5-40) 03/10/22 23:46 ALT 13 units/L (7-56) 03/10/22 23:46 Alkaline Phosphatase 160 units/L (35-129) H 03/10/22 23:46 Troponin T < 0.010 ng/mL (0.00-0.029) 03/10/22 23:46 NT-Pro-B Natriuret Pep 55.01 pg/mL (0-450) 03/10/22 23:46 Total Protein 6.4 g/dL (6.3-8.2) 03/10/22 23:46 Albumin 3.1 g/dL (3.9-5) L 03/10/22 23:46 Albumin/Globulin Ratio 0.9 % 03/10/22 23:46 Urine Color Brandy (Yellow) 03/11/22 Unknown Urine Turbidity Clear (Clear) 03/11/22 Unknown Urine pH 5.0 (5.0-7.0) 03/11/22 Unknown Ur Specific Erin 1.020 (1.003-1.030) 03/11/22 Unknown Urine Protein 30 mg/dl mg/dL (Negative) 03/11/22 Unknown Urine Glucose (UA) 50 mg/dL (Negative) 03/11/22 Unknown Urine Ketones 20 mg/dL (Negative) 03/11/22 Unknown Urine Blood Neg (Negative) 03/11/22 Unknown Urine Nitrite Neg (Negative) 03/11/22 Unknown Urine Bilirubin Neg (Negative) 03/11/22 Unknown Urine Urobilinogen 4.0 mg/dL (<2.0) 03/11/22 Unknown Ur Leukocyte Esterase Mod (Negative) 03/11/22 Unknown Urine WBC (Auto) < 1.0 /HPF (0.0-6.0) 03/11/22 Unknown Urine RBC (Auto) < 1.0 /HPF (0.0-6.0) 03/11/22 Unknown HIV 1&2 Antibody Rapid Non react (Non React) 03/11/22 15:05 HIV P24 Antigen Non react (Non React) 03/11/22 15:05 Microbiology: Microbiology 03/10/22 23:46 Peripheral/Venous Blood Culture - Preliminary NO GROWTH AFTER 4 DAYS 03/10/22 23:46 Peripheral/Venous Blood Culture - Preliminary NO GROWTH AFTER 4 DAYS 03/12/22 09:13 Sputum - Expectorated Sputum Sputum Culture - Final [place]/IV: Voiding Method Toilet Active Medications - Current Medications Current Medications: Generic Name Dose Route Start Last Admin Trade Name Freq PRN Reason Stop Dose Admin Acetaminophen 650 mg 03/11/22 04:01 03/14/22 16:18 Acetaminophen 325 Mg Tab PO 650 mg Q4H PRN Administration Pain MILD(1-3)/Fever >100.5/ROSEN Heparin Sodium (Porcine) 5,000 unit 03/11/22 06:00 03/15/22 06:37 Heparin 5,000 Unit/1 Ml Vial SUB-Q 5,000 unit Q8HR CALLY Administration Piperacillin Sod/Tazobactam Sod 4.5 gm in 100 mls @ 200 mls/hr 03/14/22 14:00 03/15/22 06:36 Zosyn/Ns 4.5gm/100ml IV 200 mls/hr Q8H CALLY Administration Protocol Insulin Human Lispro 0 unit 03/13/22 16:30 03/15/22 00:11 Insulin Lispro 100 Unit/Ml SUB-Q Not Given ACHS CALLY Protocol Magnesium Hydroxide 30 ml 03/11/22 04:01 Magnesium Hydroxide (Mom) Oral Liqd Udc PO Q4H PRN Constipation Morphine Sulfate 2 mg 03/11/22 04:01 Morphine 2 Mg/1 Ml Inj IV Q4H PRN Pain, Moderate (4-6) Morphine Sulfate 4 mg 03/11/22 04:01 Morphine 4 Mg/1 Ml Inj IV Q4H PRN Pain , Severe (7-10) Ondansetron HCl 4 mg 03/11/22 04:01 Ondansetron 4 Mg/2 Ml Inj IV Q8H PRN Nausea And Vomiting Sodium Chloride 10 ml 03/11/22 10:00 03/15/22 00:20 Sodium Chloride 0.9% 10 Ml Flush Syringe IV 10 ml BID ACLLY Administration Sodium Chloride 10 ml 03/11/22 04:01 Sodium Chloride 0.9% 10 Ml Flush Syringe IV PRN PRN LINE FLUSH Nutrition/Malnutrition Assess - Dietary Evaluation Nutrition/Malnutrition Findings: Nutrition Notes Start: 03/11/22 13:57 Freq: Status: Active Protocol: Document 03/11/22 13:57 YEYO (Rec: 03/11/22 14:32 YEYO [id number]) Nutrition Notes Need for Assessment generated from: MD Order,precise winder,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 Current Diet Cardiac Diet (since B 03/11). Labs/Tests 03/11: Na 134, Cl 94.5, BUN 6, Crea 0.3, Glu 224. Pertinent Medications 03/11: Nutritionally unremarkable. Height 5 ft 7 in Weight 65.77 kg [place] Body Weight (kg) 61.36 BMI 22.7 Intake Prior to Admission Poor Weight change and time frame Pt states that has, unintentionally, loss more than 34 lb [employer]. Pt stated that has not loss any body weight recently, according to History and Physical notes. Weight Status Appropriate Subjective/Other Information RD consult for risk of malnutrition assessment and dietary supplementation evaluation. No reports available on Pt's PO intake of meals at the time , will assess at F/U. Pt is on Room Air, O2 saturation @ 94%, according to Physical Assessment History notes. At admission was registered that Pt has loss more than 34 lb [employer], however, according to History and Physical notes, Pt stated that has not loss any body weight recently. There is no reason that might have trigger significant body weight loss in Pt Hx, according to information documented in the chart. Pt shows, therefore, no signs of concern for risk of malnutrition at the time. Dietary supplementation seems to be unnecessary at the time, I will not prescribe any for now and will assess at F/U. Percent of energy/protein needs met: Prescribed Cardiac Diet provides for energy/protein needs (2,230 Kcal/85 g) during LOS. Burn Absent Trauma Absent GI Symptoms None Food Allergy No Skin Integrity/Comment Assessment WNL. Minimum of two criteria No #1 Nutrition Diagnosis No nutrition diagnosis at this time Comments: Will assess Pt's PO intake of meals and ONS needs at F/U. Is patient on ventilator? No Is Patient Ambulatory and/or Out of Bed Yes REE-([place]-ambulatory/OOB) [ [id number] [id number]] Calculation Used for Recommendations [facility] Additional Notes Protein: 0.8-1 g/Kg ABW; 53-66 g/day. Fluids: 1 ml/Kcal, or as per MD. Nutrition Intervention Change Diet Order: Continue Cardiac Diet. Follow-Up By: 03/18/22 Additional Comments Continue monitoring food tolerance, %PO intake of meals , and BM.
--- NOTE | 2022-03-15 11:20 | Progress Note ---
Assessment and Plan Cultures: 03/10/2022 blood culture: no growth 03/11/2022 HIV: Nonreactive 03/12/2022 sputum culture: normal resp zay A/P: 46-year-old female with asthma, hypertension admitted with fever, cough, gr eenish sputum production going on for about 3 months beginning in late November: #Bilateral cavitary pneumonia, left greater than right #Fevers likely secondary to above. #Weight loss, anorexia with history of TB exposure #History of LTBI treatment about 2 years ago with once weekly therapy x 12 weeks (likely INH + Rifapentine) Recs: -airborne precautions, F/U AFB x 3, QuantiFERON -Follow-up pulmonary plans for bronchoscopy, BAL for AFB, fungal, routine cultures as well as biopsies -continue IV Zosyn, D2 -f/u ANCA, JOHN Up MD, FACP, [facility] O: [phone] F: [phone] C: [phone] Subjective Date of service: 03/15/22 Principal diagnosis: Abnormal CT scan; Sebastien. Cavitary Pneumonia; Mediastinal and hilar adenopathy Interval history: No complaints. She is currently n.p.o. Fever of 102 F yesterday evening. Objective - Exam Narrative Exam: Physical Exam: Constitutional: Alert, cooperative. No acute distress Head, Ears, Nose: Normocephalic, atraumatic. External ears, nose normal Eyes: Conjunctivae/corneas clear. No icterus. No ptosis. Neck: Supple, no meningeal signs Cardiovascular: S1, S2 + Respiratory: AE fair bilaterally GI: Soft, non-tender; bowel sounds normal. No peritoneal signs Musculoskeletal: No pedal edema, no cyanosis. Skin: No rash or abscess Hem/Lymphatic: No palpable cervical or supraclavicular nodes. No lymphangitis Psych: Mood ok. Affect normal Neurological: Awake, alert, oriented. No gross abnormality - Constitutional Vitals: Vital Signs Temp Pulse Resp BP Pulse Ox 98.5 F 92 H 16 116/73 91 03/15/22 05:32 03/15/22 05:32 03/15/22 05:32 03/15/22 05:32 03/15/22 05:32 Temperature -Last 24 Hours Temperature 98.5 F Temperature 98.6 F Temperature 99.4 F Temperature 102.0 F - Labs CBC & Chem 7: 03/14/22 07:05 03/14/22 07:05 Labs: Abnormal lab results 03/14/22 03/14/22 03/14/22 Range/Units 08:53 11:17 16:13 POC Glucose 166 H 131 H 207 H (70-105) mg/dL 03/14/22 03/15/22 Range/Units 22:13 07:19 POC Glucose 142 H 143 H (70-105) mg/dL
[2022-03-15 12:12] LABS: Myeloperoxidase Antibody <1.0 AI (<1.0)
--- NOTE | 2022-03-15 13:53 | Progress Note ---
Assessment and Plan Abnormal CXR/CT scan Bilateral cavitary infiltrates Mediastinal and hilar adenopathy Weight loss and Anorexia H/O of TB exposure H/O LTBI treatment in 2019 (once weekly therapy, 4 drug therapy per patient x 12 weeks) - Continue airborne isolation - Sputum for AFB x3 & quantiferon testing - HIV screen - tentative bronchoscopy once active TB ruled out - continue care as below otherwise; - supplemental oxygen to keep O2 sats > 90% - bronchodilators (CHRIS) with pulm hygiene per RT - continue to avoid nephrotoxins, renally dose all medications - continue mobility protocols to prevent pressure ulcers - PT/OT as tolerated - Wound care per RN/WCT - continue accuchecks with glycemic control per SSI for target blood glucose < 180 mg/dL - tobacco abstinence strongly counseled at the bedside - home oxygen evaluation at discharge - prn analgesia per pain score - GI & VTE prophylaxis - Flu & pneumovax per protocol - Pulmonary out patient follow up for PFTs and optimization of respiratory status - continue other care per attending / other consultants ... re-evaluate in am & prn Subjective Date of service: 03/15/22 Principal diagnosis: Abnormal CT scan; Sebastien. Cavitary Pneumonia; Mediastinal and hilar adenopathy Interval history: Patient is seen today for: Abnormal CXR/CT scan; Bilateral cavitary infiltrates; Mediastinal and hilar adenopathy; Weight loss and Anorexia ; H/O of TB exposure; H/O LTBI treatment in 2019 Seen and examined at bedside; 24hour events reviewed; nursing and respiratory care staff consulted; no adverse overnight events reported to me; resting in bed; denies acute chest pains or SOB; still awaiting AFB smear report / results Objective Vital Signs - 12hr 03/15/22 03/15/22 03/15/22 05:32 10:40 11:17 Temperature 98.5 F 99.4 F 98.9 F Pulse Rate 92 H 92 H 82 Respiratory 16 18 18 Rate Blood Pressure 116/73 123/68 115/70 O2 Sat by Pulse 91 94 94 Oximetry Constitutional: no acute distress, alert, other (thin, chronically ill looking) Eyes: non-icteric ENT: oropharynx moist Neck: supple, no lymphadenopathy Effort: normal Ascultation: Bilateral: diminished breath sounds, rhonchi Percussion: Bilateral: not dull Cardiovascular: regular rate and rhythm, other (S1,S2) Gastrointestinal: normoactive bowel sounds, soft, non-tender, tender, non- distended Integumentary: normal Extremities: no cyanosis, no edema, pulses normal Neurologic: normal mental status, non-focal exam, pupils equal and round, CN II- XII normal, motor strength normal and Psychiatric: mood appropriate, affect normal CBC and BMP: 03/14/22 07:05 03/14/22 07:05 Abnormal lab findings: Abnormal Labs 03/10/22 03/10/22 03/10/22 23:46 23:46 23:46 RBC Hgb RDW 16.4 H Lymph % (Auto) 13.1 L [place] % (Auto) 9.0 H Lymph # (Auto) 0.8 L Seg Neutrophils % 76.3 H Sodium 134 L Potassium Chloride 94.5 L BUN 6 L Creatinine 0.3 L Glucose 224 H POC Glucose Hemoglobin A1c Calcium Direct Bilirubin 0.3 H Alkaline Phosphatase 160 H Albumin 3.1 L 03/12/22 03/12/22 03/13/22 05:53 05:53 06:58 RBC 3.54 L Hgb RDW 16.1 H Lymph % (Auto) [place] % (Auto) 10.4 H Lymph # (Auto) 0.7 L Seg Neutrophils % 73.0 H Sodium 136 L 135 L Potassium 3.1 L 3.0 L Chloride 96.5 L BUN 2 L 3 L Creatinine 0.2 L 0.3 L Glucose 240 H 245 H POC Glucose Hemoglobin A1c Calcium 8.0 L Direct Bilirubin Alkaline Phosphatase Albumin 03/13/22 03/13/22 03/13/22 13:12 16:51 21:09 RBC Hgb RDW Lymph % (Auto) [place] % (Auto) Lymph # (Auto) Seg Neutrophils % Sodium Potassium Chloride BUN Creatinine Glucose POC Glucose 135 H 184 H Hemoglobin A1c 9.1 H Calcium Direct Bilirubin Alkaline Phosphatase Albumin 03/14/22 03/14/22 03/14/22 07:05 07:05 08:53 RBC 3.47 L Hgb 9.8 L RDW 16.3 H Lymph % (Auto) [place] % (Auto) Lymph # (Auto) Seg Neutrophils % Sodium Potassium Chloride BUN 3 L Creatinine 0.3 L Glucose 203 H POC Glucose 166 H Hemoglobin A1c Calcium Direct Bilirubin Alkaline Phosphatase Albumin 03/14/22 03/14/22 03/14/22 11:17 16:13 22:13 RBC Hgb RDW Lymph % (Auto) [place] % (Auto) Lymph # (Auto) Seg Neutrophils % Sodium Potassium Chloride BUN Creatinine Glucose POC Glucose 131 H 207 H 142 H Hemoglobin A1c Calcium Direct Bilirubin Alkaline Phosphatase Albumin 03/15/22 03/15/22 07:19 11:17 RBC Hgb RDW Lymph % (Auto) [place] % (Auto) Lymph # (Auto) Seg Neutrophils % Sodium Potassium Chloride BUN Creatinine Glucose POC Glucose 143 H 121 H Hemoglobin A1c Calcium Direct Bilirubin Alkaline Phosphatase Albumin Allied health notes reviewed: nursing
[2022-03-16] MEDS: HEPARIN 5,000 UNIT/1 ML VIAL SUB-Q SCH ×3 (06:31→22:55)
[2022-03-16] MEDS: PIPERACIL/TAZOBACTA 4.5/NS 100 4.5 GM/100 ML VIAL IV SCH ×3 (06:32→22:54)
[2022-03-16] MEDS: INSULIN LISPRO 100 UNIT/ML SUB-Q SCH ×5 (07:30→23:08)
--- NOTE | 2022-03-16 09:30 | Progress Note ---
Assessment and Plan Assessment and plan: 46-year-old -[place] female with known history of asthma and hypertension presenting to the emergency room complaining of cough, shortness of breath and fever which has been ongoing for the past 3 weeks. Patient brother had h/o TB and she was treated for positive PPD. Work-up in the emergency room, chest x-ray reveals severe bilateral airspace pneumonia, cavitary with large cavitation of the left apex. CT of the chest reveals:1. Multiple large cavitary lesions identified throughout both lungs most significantly within the left upper lobe where there is a large 8 cm cavitary lesion within the left apex. Although somewhat nonspecific these cavitary lesions appear most suggestive of a severe infectious process, likely mycobacterial in etiology. Severe left upper lobe pneumonia. Recommend close follow-up after treatment to ensure resolution. 2. Severe mediastinal adenopathy is probably reactive. 3. Small bilateral pleural effusions. Patient commenced on empiric IV antibiotics for pneumonia, placed on isolation for possible pulmonary TB. Daily hospital course: 03/12: cont empiric abx, follow afb smear - if neg plan for bronch on Monday. 03/13 patient is alert and oriented, complains of productive cough with greenish sputum. Denies any chest pain, fever or chills. Lab results reviewed, ID and pulmonary notes reviewed and appreciated 03/14: AFB smear pending, bronch pending on AFB smear - reorder the test. clinically improved. follow with supportive care. 03/15; follow-up TB work-up, follow consultants's evaluation and recommendations Possible bronchoscopy per pulmonary 03/16; pulmonary evaluation noted, possible bronchoscopy once active TB is ruled out Assessment and plan --Bilateral cavitary pneumonia Currently patient is on Zosyn per ID Pulmonary rec possible bronchoscopy after active TB is ruled out. Follow-up sputum for AFB x3 TB QuantiFERON gold test is positive Continue airborne precautions Follow pulmonary/ID recommendations --Hypokalemia; Potassium supplemented Monitor electrolytes --Hypertension Patient is normotensive off medications --History of latent TB diagnosed 2 years ago States she was treated for 12 weeks ID following --Hyperglycemia/type 2 diabetes mellitus Check A1c 9.1 Accu-Chek sliding scale coverage ADA diet Long-acting insulin as needed -- Moderate protein calorie malnutrition; -- Moderate hypoalbuminemia; albumin 3.1 Nutrition supplements Nutrition consult if needed DVT prophylaxis; Subcu heparin We will closely monitor the patient and adjust management as needed Plan of care reviewed with the patient and her nurse Consults and recommendations noted and appreciated History Interval history: I have seen and examined the patient at the bedside Patient is in airborne isolation Patient feels slightly better still complains of shortness of breath Vital signs noted Hospitalist Physical - Constitutional Vitals: Temp Pulse Resp BP Pulse Ox 98.0 F 94 H 16 132/89 95 03/15/22 22:06 03/15/22 22:06 03/15/22 22:06 03/15/22 22:06 03/15/22 22:06 General appearance: Present: no acute distress, well-nourished - EENT Eyes: Present: PERRL, EOM intact - Neck Neck: Present: supple, normal ROM - Respiratory Respiratory effort: normal Respiratory: bilateral: diminished, rhonchi, negative: rales, wheezing - Cardiovascular Rhythm: regular Heart Sounds: Present: S1 & S2 - Extremities Extremities: no ischemia, No edema - Abdominal General gastrointestinal: soft, non-tender, non-distended, normal bowel sounds - Integumentary Integumentary: Present: clear, warm - Psychiatric Psychiatric: appropriate mood/affect, cooperative - Neurologic Neurologic: CNII-XII intact, moves all extremities HEART Score - HEART Score Troponin: Troponin T < 0.010 ng/mL (0.00-0.029) 03/10/22 23:46 Results - Labs CBC & Chem 7: 03/14/22 07:05 03/14/22 07:05 Labs: Laboratory Last Values WBC 4.8 K/mm3 (4.5-11.0) 03/14/22 07:05 RBC 3.47 M/mm3 (3.65-5.03) L 03/14/22 07:05 Hgb 9.8 gm/dl (10.1-14.3) L 03/14/22 07:05 Hct 30.6 % (30.3-42.9) 03/14/22 07:05 MCV 88 fl (79-97) 03/14/22 07:05 MCH 28 pg (28-32) 03/14/22 07:05 MCHC 32 % (30-34) 03/14/22 07:05 RDW 16.3 % (13.2-15.2) H 03/14/22 07:05 Plt Count 310 K/mm3 (140-440) 03/14/22 07:05 Lymph % (Auto) 14.6 % (13.4-35.0) 03/12/22 05:53 Baker % (Auto) 10.4 % (0.0-7.3) H 03/12/22 05:53 Eos % (Auto) 1.1 % (0.0-4.3) 03/12/22 05:53 Baso % (Auto) 0.9 % (0.0-1.8) 03/12/22 05:53 Lymph # (Auto) 0.7 K/mm3 (1.2-5.4) L 03/12/22 05:53 Baker # (Auto) 0.5 K/mm3 (0.0-0.8) 03/12/22 05:53 Eos # (Auto) 0.1 K/mm3 (0.0-0.4) 03/12/22 05:53 Baso # (Auto) 0.0 K/mm3 (0.0-0.1) 03/12/22 05:53 Seg Neutrophils % 73.0 % (40.0-70.0) H 03/12/22 05:53 Seg Neutrophils # 3.7 K/mm3 (1.8-7.7) 03/12/22 05:53 Sodium 137 mmol/L (137-145) 03/14/22 07:05 Potassium 3.9 mmol/L (3.6-5.0) D 03/14/22 07:05 Chloride 100.0 mmol/L (98-107) 03/14/22 07:05 Carbon Dioxide 25 mmol/L (22-30) 03/14/22 07:05 Anion Gap 16 mmol/L 03/14/22 07:05 BUN 3 mg/dL (7-17) L 03/14/22 07:05 Creatinine 0.3 mg/dL (0.6-1.2) L 03/14/22 07:05 Estimated GFR > 60 ml/min 03/14/22 07:05 BUN/Creatinine Ratio 10 % 03/14/22 07:05 Glucose 203 mg/dL (65-100) H 03/14/22 07:05 POC Glucose 140 mg/dL (70-105) H 03/15/22 22:05 Hemoglobin A1c 9.1 % (4-6) H 03/13/22 13:12 Lactic Acid 1.50 mmol/L (0.7-2.0) 03/10/22 23:46 Calcium 8.9 mg/dL (8.4-10.2) 03/14/22 07:05 Total Bilirubin 1.10 mg/dL (0.1-1.2) 03/10/22 23:46 Direct Bilirubin 0.3 mg/dL (0-0.2) H 03/10/22 23:46 Indirect Bilirubin 0.8 mg/dL 03/10/22 23:46 AST 20 units/L (5-40) 03/10/22 23:46 ALT 13 units/L (7-56) 03/10/22 23:46 Alkaline Phosphatase 160 units/L (35-129) H 03/10/22 23:46 Troponin T < 0.010 ng/mL (0.00-0.029) 03/10/22 23:46 NT-Pro-B Natriuret Pep 55.01 pg/mL (0-450) 03/10/22 23:46 Total Protein 6.4 g/dL (6.3-8.2) 03/10/22 23:46 Albumin 3.1 g/dL (3.9-5) L 03/10/22 23:46 Albumin/Globulin Ratio 0.9 % 03/10/22 23:46 Urine Color Brandy (Yellow) 03/11/22 Unknown Urine Turbidity Clear (Clear) 03/11/22 Unknown Urine pH 5.0 (5.0-7.0) 03/11/22 Unknown Ur Specific [place] 1.020 (1.003-1.030) 03/11/22 Unknown Urine Protein 30 mg/dl mg/dL (Negative) 03/11/22 Unknown Urine Glucose (UA) 50 mg/dL (Negative) 03/11/22 Unknown Urine Ketones 20 mg/dL (Negative) 03/11/22 Unknown Urine Blood Neg (Negative) 03/11/22 Unknown Urine Nitrite Neg (Negative) 03/11/22 Unknown Urine Bilirubin Neg (Negative) 03/11/22 Unknown Urine Urobilinogen 4.0 mg/dL (<2.0) 03/11/22 Unknown Ur Leukocyte Esterase Mod (Negative) 03/11/22 Unknown Urine WBC (Auto) < 1.0 /HPF (0.0-6.0) 03/11/22 Unknown Urine RBC (Auto) < 1.0 /HPF (0.0-6.0) 03/11/22 Unknown Proteinase 3 (PR3) Ab <1.0 AI (<1.0) 03/11/22 15:05 Myeloperoxidase Ab <1.0 AI (<1.0) 03/11/22 15:05 HIV 1&2 Antibody Rapid Non react (Non React) 03/11/22 15:05 HIV P24 Antigen Non react (Non React) 03/11/22 15:05 TB (QFT) Gold In Tube Positive (NEGATIVE) H 03/11/22 15:05 TB Test (QFT) Nil 3.15 IU/mL 03/11/22 15:05 TB Test Mitogen - Nil 3.92 IU/mL 03/11/22 15:05 TB Test Ag - Nil 1 3.85 IU/mL 03/11/22 15:05 TB Test Ag - Nil 2 3.40 IU/mL 03/11/22 15:05 Microbiology: Microbiology 03/10/22 23:46 Peripheral/Venous Blood Culture - Final NO GROWTH AFTER 5 DAYS 03/10/22 23:46 Peripheral/Venous Blood Culture - Final NO GROWTH AFTER 5 DAYS [place]/IV: Voiding Method Toilet Active Medications - Current Medications Current Medications: Generic Name Dose Route Start Last Admin Trade Name Freq PRN Reason Stop Dose Admin Acetaminophen 650 mg 03/11/22 04:01 03/14/22 16:18 Acetaminophen 325 Mg Tab PO 650 mg Q4H PRN Administration Pain MILD(1-3)/Fever >100.5/ROSEN Heparin Sodium (Porcine) 5,000 unit 03/11/22 06:00 03/16/22 06:31 Heparin 5,000 Unit/1 Ml Vial SUB-Q 5,000 unit Q8HR CALLY Administration Piperacillin Sod/Tazobactam Sod 4.5 gm in 100 mls @ 200 mls/hr 03/14/22 14:00 03/16/22 06:32 Zosyn/Ns 4.5gm/100ml IV 200 mls/hr Q8H CALLY Administration Protocol Insulin Human Lispro 0 unit 03/13/22 16:30 03/15/22 22:50 Insulin Lispro 100 Unit/Ml SUB-Q Not Given ACHS CALLY Protocol Magnesium Hydroxide 30 ml 03/11/22 04:01 Magnesium Hydroxide (Mom) Oral Liqd Udc PO Q4H PRN Constipation Morphine Sulfate 2 mg 03/11/22 04:01 Morphine 2 Mg/1 Ml Inj IV Q4H PRN Pain, Moderate (4-6) Morphine Sulfate 4 mg 03/11/22 04:01 Morphine 4 Mg/1 Ml Inj IV Q4H PRN Pain , Severe (7-10) Ondansetron HCl 4 mg 03/11/22 04:01 Ondansetron 4 Mg/2 Ml Inj IV Q8H PRN Nausea And Vomiting Sodium Chloride 10 ml 03/11/22 10:00 03/15/22 22:50 Sodium Chloride 0.9% 10 Ml Flush Syringe IV 10 ml BID CALLY Administration Sodium Chloride 10 ml 03/11/22 04:01 Sodium Chloride 0.9% 10 Ml Flush Syringe IV PRN PRN LINE FLUSH Nutrition/Malnutrition Assess - Dietary Evaluation Nutrition/Malnutrition Findings: Nutrition Notes Start: 03/11/22 13:57 Freq: Status: Active Protocol: Document 03/11/22 13:57 YEYO (Rec: 03/11/22 14:32 YEYO [id number]) Nutrition Notes Need for Assessment generated from: MD Order,public area attendant,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 Current Diet Cardiac Diet (since B 03/11). Labs/Tests 03/11: Na 134, Cl 94.5, BUN 6, Crea 0.3, Glu 224. Pertinent Medications 03/11: Nutritionally unremarkable. Height 5 ft 7 in Weight 65.77 kg Qulin Body Weight (kg) 61.36 BMI 22.7 Intake Prior to Admission Poor Weight change and time frame Pt states that has, unintentionally, loss more than 34 lb [employer]. Pt stated that has not loss any body weight recently, according to History and Physical notes. Weight Status Appropriate Subjective/Other Information RD consult for risk of malnutrition assessment and dietary supplementation evaluation. No reports available on Pt's PO intake of meals at the time , will assess at F/U. Pt is on Room Air, O2 saturation @ 94%, according to Physical Assessment History notes. At admission was registered that Pt has loss more than 34 lb [employer], however, according to History and Physical notes, Pt stated that has not loss any body weight recently. There is no reason that might have trigger significant body weight loss in Pt Hx, according to information documented in the chart. Pt shows, therefore, no signs of concern for risk of malnutrition at the time. Dietary supplementation seems to be unnecessary at the time, I will not prescribe any for now and will assess at F/U. Percent of energy/protein needs met: Prescribed Cardiac Diet provides for energy/protein needs (2,230 Kcal/85 g) during LOS. Burn Absent Trauma Absent GI Symptoms None Food Allergy No Skin Integrity/Comment Assessment WNL. Minimum of two criteria No #1 Nutrition Diagnosis No nutrition diagnosis at this time Comments: Will assess Pt's PO intake of meals and ONS needs at F/U. Is patient on ventilator? No Is Patient Ambulatory and/or Out of Bed Yes REE-([facility]-ambulatory/OOB) [ [id number] [id number]] Calculation Used for Recommendations [facility] Additional Notes Protein: 0.8-1 g/Kg ABW; 53-66 g/day. Fluids: 1 ml/Kcal, or as per MD. Nutrition Intervention Change Diet Order: Continue Cardiac Diet. Follow-Up By: 03/18/22 Additional Comments Continue monitoring food tolerance, %PO intake of meals , and BM.
--- NOTE | 2022-03-16 11:08 | Progress Note ---
Assessment and Plan Cultures: 03/10/2022 blood culture: no growth 03/11/2022 HIV: Nonreactive 03/12/2022 sputum culture: normal resp zay 03/11/2022 ANCA: Negative 03/11/2022 TB QuantiFERON gold: Positive A/P: 46-year-old female with asthma, hypertension admitted with fever, cough, greenish sputum production going on for about 3 months beginning in late November: #Bilateral cavitary pneumonia, left greater than right #Fevers likely secondary to above. #Weight loss, anorexia with history of TB exposure #History of LTBI treatment about 2 years ago with once weekly therapy x 12 weeks (likely INH + Rifapentine) Recs: -airborne precautions, F/U AFB x 3 -Contacted microbiology, no results available yet from AFB smears -TB QuantiFERON gold is positive, however patient likely to have persistently positive TB QuantiFERON due to her previous history of latent TB. -If AFB smears from sputum or BAL come back positive, will initiate anti-TB therapy -Follow-up pulmonary plans for bronchoscopy, BAL for AFB, fungal, routine cultures as well as biopsies -continue IV Zosyn, D3 Brandin Up MD, FACP, [facility] ([facility] O: [phone] F: [phone] C: [phone] Subjective Date of service: 03/16/22 Principal diagnosis: Abnormal CT scan; Sebastien. Cavitary Pneumonia; Mediastinal and hilar adenopathy Interval history: No complaints. No fever. Feels well. Still awaiting bronch. Objective - Exam Narrative Exam: Physical Exam: Constitutional: Alert, cooperative. No acute distress Head, Ears, Nose: Normocephalic, atraumatic. External ears, nose normal Eyes: Conjunctivae/corneas clear. No icterus. No ptosis. Neck: Supple, no meningeal signs Cardiovascular: S1, S2 + Respiratory: AE fair bilaterally GI: Soft, non-tender; bowel sounds normal. No peritoneal signs Musculoskeletal: No pedal edema, no cyanosis. Skin: No rash or abscess Hem/Lymphatic: No palpable cervical or supraclavicular nodes. No lymphangitis Psych: Mood ok. Affect normal Neurological: Awake, alert, oriented. No gross abnormality - Constitutional Vitals: Vital Signs Temp Pulse Resp BP Pulse Ox 98.0 F 94 H 16 132/89 95 03/15/22 22:06 03/15/22 22:06 03/15/22 22:06 03/15/22 22:06 03/15/22 22:06 Temperature -Last 24 Hours Temperature 98.0 F Temperature 97.9 F Temperature 98.9 F - Labs CBC & Chem 7: 03/14/22 07:05 03/14/22 07:05 Labs: Abnormal lab results 03/11/22 03/15/22 03/15/22 Range/Units 15:05 11:17 16:09 POC Glucose 121 H 180 H (70-105) mg/dL TB (QFT) Gold In Tube Positive H (NEGATIVE) 03/15/22 Range/Units 22:05 POC Glucose 140 H (70-105) mg/dL TB (QFT) Gold In Tube (NEGATIVE)
[2022-03-16 12:27] LABS: ANA Screen, IFA Negative (Negative)
--- NOTE | 2022-03-16 12:41 | Progress Note ---
Assessment and Plan Abnormal CXR/CT scan Bilateral cavitary infiltrates Mediastinal and hilar adenopathy Weight loss and Anorexia H/O of TB exposure H/O LTBI treatment in 2019 (once weekly therapy, 4 drug therapy per patient x 12 weeks) - Continue airborne isolation - Sputum for AFB x3 pending - quantiferon gold +ve - HIV screen -ve - tentative bronchoscopy once active TB ruled out - continue care as below otherwise; - supplemental oxygen to keep O2 sats > 90% - bronchodilators (CHRIS) with pulm hygiene per RT - continue to avoid nephrotoxins, renally dose all medications - continue mobility protocols to prevent pressure ulcers - PT/OT as tolerated - Wound care per RN/WCT - continue accuchecks with glycemic control per SSI for target blood glucose < 180 mg/dL - tobacco abstinence strongly counseled at the bedside - home oxygen evaluation at discharge - prn analgesia per pain score - GI & VTE prophylaxis - Flu & pneumovax per protocol - Pulmonary out patient follow up for PFTs and optimization of respiratory status - continue other care per attending / other consultants ... re-evaluate in am & prn Subjective Date of service: 03/16/22 Principal diagnosis: Abnormal CT scan; Sebastien. Cavitary Pneumonia; Mediastinal and hilar adenopathy Interval history: Patient is seen today for: Abnormal CXR/CT scan; Bilateral cavitary infiltrates; Mediastinal and hilar adenopathy; Weight loss and Anorexia ; H/O of TB exposure; H/O LTBI treatment in 2019 Seen and examined at bedside; 24hour events reviewed; nursing and respiratory care staff consulted; no adverse overnight events reported to me; resting in bed; denies acute chest pain; denies hemoptysis; no N/V/F/C; still await AFB smear report Objective Constitutional: no acute distress, alert, other (thin, chronically ill looking) Eyes: non-icteric ENT: oropharynx moist Neck: supple, no lymphadenopathy Effort: normal Ascultation: Bilateral: diminished breath sounds, rhonchi Percussion: Bilateral: not dull Cardiovascular: regular rate and rhythm, other (S1,S2) Gastrointestinal: normoactive bowel sounds, soft, non-tender, tender, non- distended Integumentary: normal Extremities: no cyanosis, no edema, pulses normal Neurologic: normal mental status, non-focal exam, pupils equal and round, CN II- XII normal, motor strength normal and Psychiatric: mood appropriate, affect normal CBC and BMP: 03/14/22 07:05 03/14/22 07:05 Abnormal lab findings: Abnormal Labs 03/10/22 03/10/22 03/10/22 23:46 23:46 23:46 RBC Hgb RDW 16.4 H Lymph % (Auto) 13.1 L [place] % (Auto) 9.0 H Lymph # (Auto) 0.8 L Seg Neutrophils % 76.3 H Sodium 134 L Potassium Chloride 94.5 L BUN 6 L Creatinine 0.3 L Glucose 224 H POC Glucose Hemoglobin A1c Calcium Direct Bilirubin 0.3 H Alkaline Phosphatase 160 H Albumin 3.1 L TB (QFT) Gold In Tube 03/11/22 03/12/22 03/12/22 15:05 05:53 05:53 RBC 3.54 L Hgb RDW 16.1 H Lymph % (Auto) [place] % (Auto) 10.4 H Lymph # (Auto) 0.7 L Seg Neutrophils % 73.0 H Sodium 136 L Potassium 3.1 L Chloride BUN 2 L Creatinine 0.2 L Glucose 240 H POC Glucose Hemoglobin A1c Calcium 8.0 L Direct Bilirubin Alkaline Phosphatase Albumin TB (QFT) Gold In Tube Positive H 03/13/22 03/13/22 03/13/22 06:58 13:12 16:51 RBC Hgb RDW Lymph % (Auto) [place] % (Auto) Lymph # (Auto) Seg Neutrophils % Sodium 135 L Potassium 3.0 L Chloride 96.5 L BUN 3 L Creatinine 0.3 L Glucose 245 H POC Glucose 135 H Hemoglobin A1c 9.1 H Calcium Direct Bilirubin Alkaline Phosphatase Albumin TB (QFT) Gold In Tube 03/13/22 03/14/22 03/14/22 21:09 07:05 07:05 RBC 3.47 L Hgb 9.8 L RDW 16.3 H Lymph % (Auto) [place] % (Auto) Lymph # (Auto) Seg Neutrophils % Sodium Potassium Chloride BUN 3 L Creatinine 0.3 L Glucose 203 H POC Glucose 184 H Hemoglobin A1c Calcium Direct Bilirubin Alkaline Phosphatase Albumin TB (QFT) Gold In Tube 03/14/22 03/14/22 03/14/22 08:53 11:17 16:13 RBC Hgb RDW Lymph % (Auto) [place] % (Auto) Lymph # (Auto) Seg Neutrophils % Sodium Potassium Chloride BUN Creatinine Glucose POC Glucose 166 H 131 H 207 H Hemoglobin A1c Calcium Direct Bilirubin Alkaline Phosphatase Albumin TB (QFT) Gold In Tube 03/14/22 03/15/22 03/15/22 22:13 07:19 11:17 RBC Hgb RDW Lymph % (Auto) [place] % (Auto) Lymph # (Auto) Seg Neutrophils % Sodium Potassium Chloride BUN Creatinine Glucose POC Glucose 142 H 143 H 121 H Hemoglobin A1c Calcium Direct Bilirubin Alkaline Phosphatase Albumin TB (QFT) Gold In Tube 03/15/22 03/15/22 16:09 22:05 RBC Hgb RDW Lymph % (Auto) [place] % (Auto) Lymph # (Auto) Seg Neutrophils % Sodium Potassium Chloride BUN Creatinine Glucose POC Glucose 180 H 140 H Hemoglobin A1c Calcium Direct Bilirubin Alkaline Phosphatase Albumin TB (QFT) Gold In Tube Allied health notes reviewed: nursing
[2022-03-16] MEDS: ACETAMINOPHEN 325 MG TAB PO PRN (23:12)
[2022-03-17] MEDS: HEPARIN 5,000 UNIT/1 ML VIAL SUB-Q SCH ×3 (05:51→22:54)
[2022-03-17] MEDS: PIPERACIL/TAZOBACTA 4.5/NS 100 4.5 GM/100 ML VIAL IV SCH (05:51)
[2022-03-17] MEDS: INSULIN LISPRO 100 UNIT/ML SUB-Q SCH ×4 (08:07→23:17)
--- NOTE | 2022-03-17 10:26 | Progress Note ---
Assessment and Plan Abnormal CXR/CT scan Bilateral cavitary infiltrates Mediastinal and hilar adenopathy Weight loss and Anorexia H/O of TB exposure H/O LTBI treatment in 2019 (once weekly therapy, 4 drug therapy per patient x 12 weeks) - started on RPIE + B6 for active TB empirically - continue airborne isolation - Sputum for AFB x3 pending - tentative bronchoscopy if & when active TB ruled out - continue care as below otherwise; - supplemental oxygen to keep O2 sats > 90% - bronchodilators (CHRIS) with pulm hygiene per RT - continue to avoid nephrotoxins, renally dose all medications - continue mobility protocols to prevent pressure ulcers - PT/OT as tolerated - Wound care per RN/WCT - continue accuchecks with glycemic control per SSI for target blood glucose < 180 mg/dL - tobacco abstinence strongly counseled at the bedside - home oxygen evaluation at discharge - prn analgesia per pain score - GI & VTE prophylaxis - Flu & pneumovax per protocol - Pulmonary out patient follow up for PFTs and optimization of respiratory status - continue other care per attending / other consultants ... re-evaluate in am & prn Subjective Date of service: 03/17/22 Principal diagnosis: Abnormal CT scan; Sebastien. Cavitary Pneumonia; Mediastinal and hilar adenopathy Interval history: Patient is seen today for: Abnormal CXR/CT scan; Bilateral cavitary infiltrates; Mediastinal and hilar adenopathy; Weight loss and Anorexia ; H/O of TB exposure; H/O LTBI treatment in 2019 Seen and examined at bedside; 24hour events reviewed; nursing and respiratory care staff consulted; no adverse overnight events reported to me; resting in bed; denies acute chest pain; denies hemoptysis; still waiting on AFB smear report Objective Vital Signs - 12hr 03/16/22 03/17/22 03/17/22 23:08 05:17 09:11 Temperature 100.2 F H 98.9 F Pulse Rate 96 H 85 Respiratory 18 Rate Blood Pressure 120/81 118/83 O2 Sat by Pulse 91 96 96 Oximetry Constitutional: no acute distress, alert, other (thin, chronically ill looking) Eyes: non-icteric ENT: oropharynx moist Neck: supple, no lymphadenopathy Effort: normal Ascultation: Bilateral: diminished breath sounds, rhonchi Percussion: Bilateral: not dull Cardiovascular: regular rate and rhythm, other (S1,S2) Gastrointestinal: normoactive bowel sounds, soft, non-tender, tender, non- distended Integumentary: normal Extremities: no cyanosis, no edema, pulses normal Neurologic: normal mental status, non-focal exam, pupils equal and round, CN II- XII normal, motor strength normal and Psychiatric: mood appropriate, affect normal CBC and BMP: 03/14/22 07:05 03/14/22 07:05 Abnormal lab findings: Abnormal Labs 03/10/22 03/10/22 03/10/22 23:46 23:46 23:46 RBC Hgb RDW 16.4 H Lymph % (Auto) 13.1 L Isabella % (Auto) 9.0 H Lymph # (Auto) 0.8 L Seg Neutrophils % 76.3 H Sodium 134 L Potassium Chloride 94.5 L BUN 6 L Creatinine 0.3 L Glucose 224 H POC Glucose Hemoglobin A1c Calcium Direct Bilirubin 0.3 H Alkaline Phosphatase 160 H Albumin 3.1 L TB (QFT) Gold In Tube 03/11/22 03/12/22 03/12/22 15:05 05:53 05:53 RBC 3.54 L Hgb RDW 16.1 H Lymph % (Auto) Isabella % (Auto) 10.4 H Lymph # (Auto) 0.7 L Seg Neutrophils % 73.0 H Sodium 136 L Potassium 3.1 L Chloride BUN 2 L Creatinine 0.2 L Glucose 240 H POC Glucose Hemoglobin A1c Calcium 8.0 L Direct Bilirubin Alkaline Phosphatase Albumin TB (QFT) Gold In Tube Positive H 03/13/22 03/13/22 03/13/22 06:58 13:12 16:51 RBC Hgb RDW Lymph % (Auto) [place]abella % (Auto) Lymph # (Auto) Seg Neutrophils % Sodium 135 L Potassium 3.0 L Chloride 96.5 L BUN 3 L Creatinine 0.3 L Glucose 245 H POC Glucose 135 H Hemoglobin A1c 9.1 H Calcium Direct Bilirubin Alkaline Phosphatase Albumin TB (QFT) Gold In Tube 03/13/22 03/14/22 03/14/22 21:09 07:05 07:05 RBC 3.47 L Hgb 9.8 L RDW 16.3 H Lymph % (Auto) [place]abella % (Auto) Lymph # (Auto) Seg Neutrophils % Sodium Potassium Chloride BUN 3 L Creatinine 0.3 L Glucose 203 H POC Glucose 184 H Hemoglobin A1c Calcium Direct Bilirubin Alkaline Phosphatase Albumin TB (QFT) Gold In Tube 03/14/22 03/14/22 03/14/22 08:53 11:17 16:13 RBC Hgb RDW Lymph % (Auto) Isabella % (Auto) Lymph # (Auto) Seg Neutrophils % Sodium Potassium Chloride BUN Creatinine Glucose POC Glucose 166 H 131 H 207 H Hemoglobin A1c Calcium Direct Bilirubin Alkaline Phosphatase Albumin TB (QFT) Gold In Tube 03/14/22 03/15/22 03/15/22 22:13 07:19 11:17 RBC Hgb RDW Lymph % (Auto) [place]abella % (Auto) Lymph # (Auto) Seg Neutrophils % Sodium Potassium Chloride BUN Creatinine Glucose POC Glucose 142 H 143 H 121 H Hemoglobin A1c Calcium Direct Bilirubin Alkaline Phosphatase Albumin TB (QFT) Gold In Tube 03/15/22 03/15/22 03/16/22 16:09 22:05 07:18 RBC Hgb RDW Lymph % (Auto) [place]abella % (Auto) Lymph # (Auto) Seg Neutrophils % Sodium Potassium Chloride BUN Creatinine Glucose POC Glucose 180 H 140 H 153 H Hemoglobin A1c Calcium Direct Bilirubin Alkaline Phosphatase Albumin TB (QFT) Gold In Tube 03/16/22 03/16/22 03/16/22 11:39 15:52 21:57 RBC Hgb RDW Lymph % (Auto) [place] % (Auto) Lymph # (Auto) Seg Neutrophils % Sodium Potassium Chloride BUN Creatinine Glucose POC Glucose 216 H 212 H 127 H Hemoglobin A1c Calcium Direct Bilirubin Alkaline Phosphatase Albumin TB (QFT) Gold In Tube 03/17/22 07:50 RBC Hgb RDW Lymph % (Auto) [place]abella % (Auto) Lymph # (Auto) Seg Neutrophils % Sodium Potassium Chloride BUN Creatinine Glucose POC Glucose 118 H Hemoglobin A1c Calcium Direct Bilirubin Alkaline Phosphatase Albumin TB (QFT) Gold In Tube Allied health notes reviewed: nursing
--- NOTE | 2022-03-17 12:01 | Progress Note ---
Assessment and Plan Cultures: 03/10/2022 blood culture: no growth 03/11/2022 HIV: Nonreactive 03/12/2022 sputum culture: normal resp zay 03/11/2022 ANCA, JOHN: Negative 03/11/2022 TB QuantiFERON gold: Positive A/P: 46-year-old female with asthma, hypertension admitted with fever, cough, greenish sputum production going on for about 3 months beginning in late November: #Bilateral cavitary pneumonia, left greater than right, likely secondary to pulmonary tuberculosis #Fevers likely secondary to above. #Weight loss, anorexia with history of TB exposure #History of LTBI treatment about 2 years ago with once weekly therapy x 12 weeks (likely INH + Rifapentine) Recs: -airborne precautions, F/U AFB x 3 -Discussed with microbiology lab, AFB smear positive for AFB, sample days at [facility], TB probe was added on -High suspicion for TB, will start RIPE + B6 -Zosyn discontinued -Case management orders placed for initiation of directly observed therapy via health department Brandin Up MD, FACNIMCO [facility] O: [phone] F: [phone] C: [phone] Subjective Date of service: 03/17/22 Principal diagnosis: Abnormal CT scan; Sebastien. Cavitary Pneumonia; Mediastinal and hilar adenopathy Interval history: No complaints. No fever. Feels well. Objective - Exam Narrative Exam: Physical Exam: Constitutional: Alert, cooperative. No acute distress Head, Ears, Nose: Normocephalic, atraumatic. External ears, nose normal Eyes: Conjunctivae/corneas clear. No icterus. No ptosis. Neck: Supple, no meningeal signs Cardiovascular: S1, S2 + Respiratory: AE fair bilaterally GI: Soft, non-tender; bowel sounds normal. No peritoneal signs Musculoskeletal: No pedal edema, no cyanosis. Skin: No rash or abscess Hem/Lymphatic: No palpable cervical or supraclavicular nodes. No lymphangitis Psych: Mood ok. Affect normal Neurological: Awake, alert, oriented. No gross abnormality - Constitutional Vitals: Vital Signs Temp Pulse Resp BP Pulse Ox 98.9 F 85 18 118/83 96 03/17/22 05:17 03/17/22 05:17 03/16/22 23:08 03/17/22 05:17 03/17/22 09:11 Temperature -Last 24 Hours Temperature 98.9 F Temperature 100.2 F Temperature 100.0 F - Labs CBC & Chem 7: 03/14/22 07:05 03/14/22 07:05 Labs: Abnormal lab results 03/16/22 03/16/22 03/16/22 Range/Units 07:18 11:39 15:52 POC Glucose 153 H 216 H 212 H (70-105) mg/dL 03/16/22 03/17/22 Range/Units 21:57 07:50 POC Glucose 127 H 118 H (70-105) mg/dL
[2022-03-17] MEDS: rifAMPin 300 MG CAP PO SCH (15:34)
[2022-03-17] MEDS: PYRIDOXINE 50 MG TAB PO SCH (15:34)
[2022-03-17] MEDS: ISONIAZID 300 MG TAB PO SCH (15:34)
[2022-03-17] MEDS: ETHAMBUTOL 400 MG TAB PO SCH (15:34)
[2022-03-17] MEDS: PYRAZINAMIDE 500 MG TAB PO SCH (15:48)
[2022-03-17] MEDS: ACETAMINOPHEN 325 MG TAB PO PRN (17:42)
--- NOTE | 2022-03-17 19:14 | Progress Note ---
Assessment and Plan Assessment and plan: 46-year-old -N[place]ien female with known history of asthma and hypertension presenting to the emergency room complaining of cough, shortness of breath and fever which has been ongoing for the past 3 weeks. Patient brother had h/o TB and she was treated for positive PPD. Work-up in the emergency room, chest x-ray reveals severe bilateral airspace pneumonia, cavitary with large cavitation of the left apex. CT of the chest reveals:1. Multiple large cavitary lesions identified throughout both lungs most significantly within the left upper lobe where there is a large 8 cm cavitary lesion within the left apex. Although somewhat nonspecific these cavitary lesions appear most suggestive of a severe infectious process, likely mycobacterial in etiology. Severe left upper lobe pneumonia. Recommend close follow-up after treatment to ensure resolution. 2. Severe mediastinal adenopathy is probably reactive. 3. Small bilateral pleural effusions. Patient commenced on empiric IV antibiotics for pneumonia, placed on isolation for possible pulmonary TB. Daily hospital course: 03/12: cont empiric abx, follow afb smear - if neg plan for bronch on Monday. 03/13 patient is alert and oriented, complains of productive cough with greenish sputum. Denies any chest pain, fever or chills. Lab results reviewed, ID and pulmonary notes reviewed and appreciated 03/14: AFB smear pending, bronch pending on AFB smear - reorder the test. clinically improved. follow with supportive care. 03/15; follow-up TB work-up, follow consultants's evaluation and recommendations Possible bronchoscopy per pulmonary 03/16; pulmonary evaluation noted, possible bronchoscopy once active TB is ruled out 03/17 ; ID checked with microbiology AFP sputum tests positive for AFB ID started RI PE regimen, continue airborne isolation Assistant Basketball Coach recommendations noted and appreciated Assessment and plan ID has checked with microbiology for sputum for AFB AFB smear positive for AFB; sample days at [facility], TB probe was added on -High suspicion for TB, will start RIPE + B6 -Zosyn discontinued -Case management orders placed for initiation of directly observed therapy via health department --Bilateral cavitary pneumonia Currently patient is on Zosyn per ID Pulmonary rec possible bronchoscopy after active TB is ruled out. Follow-up sputum for AFB x3 TB QuantiFERON gold test is positive Continue airborne precautions Follow pulmonary/ID recommendations --Hypokalemia; Potassium supplemented Monitor electrolytes --Hypertension Patient is normotensive off medications --History of latent TB diagnosed 2 years ago States she was treated for 12 weeks ID following --Hyperglycemia/type 2 diabetes mellitus Check A1c 9.1 Accu-Chek sliding scale coverage ADA diet Long-acting insulin as needed -- Moderate protein calorie malnutrition; -- Moderate hypoalbuminemia; albumin 3.1 Nutrition supplements Nutrition consult if needed DVT prophylaxis; Subcu heparin We will adjust as needed the patient and adjust management as needed Plan of care reviewed with the patient and her nurse Consults and recommendations noted and appreciated History Interval history: Seen and examined the patient at the bedside patient's chart and medications reviewed Patient's AFP sputum AFB positive per ID Patient was started on 4 drug regimen Continue isolation patient complains of generalized weakness Mild shortness of breath Hospitalist Physical - Constitutional Vitals: Temp Pulse Resp BP Pulse Ox 100.1 F H 104 H 18 129/86 97 03/17/22 16:40 03/17/22 16:40 03/17/22 16:40 03/17/22 16:40 03/17/22 16:40 General appearance: Present: no acute distress, well-nourished - EENT Eyes: Present: PERRL, EOM intact - Neck Neck: Present: supple, normal ROM - Respiratory Respiratory effort: normal Respiratory: bilateral: diminished, rhonchi - Cardiovascular Rhythm: regular Heart Sounds: Present: S1 & S2 - Extremities Extremities: no ischemia, No edema - Integumentary Integumentary: Present: clear, warm - Psychiatric Psychiatric: appropriate mood/affect, cooperative - Neurologic Neurologic: moves all extremities HEART Score - HEART Score Troponin: Troponin T < 0.010 ng/mL (0.00-0.029) 03/10/22 23:46 Results - Labs CBC & Chem 7: 03/14/22 07:05 03/14/22 07:05 Labs: Laboratory Last Values WBC 4.8 K/mm3 (4.5-11.0) 03/14/22 07:05 RBC 3.47 M/mm3 (3.65-5.03) L 03/14/22 07:05 Hgb 9.8 gm/dl (10.1-14.3) L 03/14/22 07:05 Hct 30.6 % (30.3-42.9) 03/14/22 07:05 MCV 88 fl (79-97) 03/14/22 07:05 MCH 28 pg (28-32) 03/14/22 07:05 MCHC 32 % (30-34) 03/14/22 07:05 RDW 16.3 % (13.2-15.2) H 03/14/22 07:05 Plt Count 310 K/mm3 (140-440) 03/14/22 07:05 Lymph % (Auto) 14.6 % (13.4-35.0) 03/12/22 05:53 [place] % (Auto) 10.4 % (0.0-7.3) H 03/12/22 05:53 Eos % (Auto) 1.1 % (0.0-4.3) 03/12/22 05:53 Baso % (Auto) 0.9 % (0.0-1.8) 03/12/22 05:53 Lymph # (Auto) 0.7 K/mm3 (1.2-5.4) L 03/12/22 05:53 [place] # (Auto) 0.5 K/mm3 (0.0-0.8) 03/12/22 05:53 Eos # (Auto) 0.1 K/mm3 (0.0-0.4) 03/12/22 05:53 Baso # (Auto) 0.0 K/mm3 (0.0-0.1) 03/12/22 05:53 Seg Neutrophils % 73.0 % (40.0-70.0) H 03/12/22 05:53 Seg Neutrophils # 3.7 K/mm3 (1.8-7.7) 03/12/22 05:53 Sodium 137 mmol/L (137-145) 03/14/22 07:05 Potassium 3.9 mmol/L (3.6-5.0) D 03/14/22 07:05 Chloride 100.0 mmol/L (98-107) 03/14/22 07:05 Carbon Dioxide 25 mmol/L (22-30) 03/14/22 07:05 Anion Gap 16 mmol/L 03/14/22 07:05 BUN 3 mg/dL (7-17) L 03/14/22 07:05 Creatinine 0.3 mg/dL (0.6-1.2) L 03/14/22 07:05 Estimated GFR > 60 ml/min 03/14/22 07:05 BUN/Creatinine Ratio 10 % 03/14/22 07:05 Glucose 203 mg/dL (65-100) H 03/14/22 07:05 POC Glucose 137 mg/dL (70-105) H 03/17/22 12:10 Hemoglobin A1c 9.1 % (4-6) H 03/13/22 13:12 Lactic Acid 1.50 mmol/L (0.7-2.0) 03/10/22 23:46 Calcium 8.9 mg/dL (8.4-10.2) 03/14/22 07:05 Total Bilirubin 1.10 mg/dL (0.1-1.2) 03/10/22 23:46 Direct Bilirubin 0.3 mg/dL (0-0.2) H 03/10/22 23:46 Indirect Bilirubin 0.8 mg/dL 03/10/22 23:46 AST 20 units/L (5-40) 03/10/22 23:46 ALT 13 units/L (7-56) 03/10/22 23:46 Alkaline Phosphatase 160 units/L (35-129) H 03/10/22 23:46 Troponin T < 0.010 ng/mL (0.00-0.029) 03/10/22 23:46 NT-Pro-B Natriuret Pep 55.01 pg/mL (0-450) 03/10/22 23:46 Total Protein 6.4 g/dL (6.3-8.2) 03/10/22 23:46 Albumin 3.1 g/dL (3.9-5) L 03/10/22 23:46 Albumin/Globulin Ratio 0.9 % 03/10/22 23:46 Urine Color Brandy (Yellow) 03/11/22 Unknown Urine Turbidity Clear (Clear) 03/11/22 Unknown Urine pH 5.0 (5.0-7.0) 03/11/22 Unknown Ur Specific [place] 1.020 (1.003-1.030) 03/11/22 Unknown Urine Protein 30 mg/dl mg/dL (Negative) 03/11/22 Unknown Urine Glucose (UA) 50 mg/dL (Negative) 03/11/22 Unknown Urine Ketones 20 mg/dL (Negative) 03/11/22 Unknown Urine Blood Neg (Negative) 03/11/22 Unknown Urine Nitrite Neg (Negative) 03/11/22 Unknown Urine Bilirubin Neg (Negative) 03/11/22 Unknown Urine Urobilinogen 4.0 mg/dL (<2.0) 03/11/22 Unknown Ur Leukocyte Esterase Mod (Negative) 03/11/22 Unknown Urine WBC (Auto) < 1.0 /HPF (0.0-6.0) 03/11/22 Unknown Urine RBC (Auto) < 1.0 /HPF (0.0-6.0) 03/11/22 Unknown JOHN Screen Negative (Negative) 03/11/22 15:05 Proteinase 3 (PR3) Ab <1.0 AI (<1.0) 03/11/22 15:05 Myeloperoxidase Ab <1.0 AI (<1.0) 03/11/22 15:05 HIV 1&2 Antibody Rapid Non react (Non React) 03/11/22 15:05 HIV P24 Antigen Non react (Non React) 03/11/22 15:05 TB (QFT) Gold In Tube Positive (NEGATIVE) H 03/11/22 15:05 TB Test (QFT) Nil 3.15 IU/mL 03/11/22 15:05 TB Test Mitogen - Nil 3.92 IU/mL 03/11/22 15:05 TB Test Ag - Nil 1 3.85 IU/mL 03/11/22 15:05 TB Test Ag - Nil 2 3.40 IU/mL 03/11/22 15:05 [place]/IV: Voiding Method Toilet Active Medications - Current Medications Current Medications: Generic Name Dose Route Start Last Admin Trade Name Freq PRN Reason Stop Dose Admin Acetaminophen 650 mg 03/11/22 04:01 03/17/22 17:42 Acetaminophen 325 Mg Tab PO 650 mg Q4H PRN Administration Pain MILD(1-3)/Fever >100.5/ROSEN Ethambutol HCl 1,200 mg 03/17/22 14:00 03/17/22 15:34 Ethambutol 400 Mg Tab PO 1,200 mg QDAY CALLY Administration Heparin Sodium (Porcine) 5,000 unit 03/11/22 06:00 03/17/22 15:34 Heparin 5,000 Unit/1 Ml Vial SUB-Q 5,000 unit Q8HR CALLY Administration Insulin Human Lispro 0 unit 03/13/22 16:30 03/17/22 17:42 Insulin Lispro 100 Unit/Ml SUB-Q 2 unit ACHS CALLY Administration Protocol Isoniazid 300 mg 03/17/22 14:00 03/17/22 15:34 Isoniazid 300 Mg Tab PO 300 mg QDAY CALLY Administration Magnesium Hydroxide 30 ml 03/11/22 04:01 Magnesium Hydroxide (Mom) Oral Liqd Udc PO Q4H PRN Constipation Morphine Sulfate 2 mg 03/11/22 04:01 Morphine 2 Mg/1 Ml Inj IV Q4H PRN Pain, Moderate (4-6) Morphine Sulfate 4 mg 03/11/22 04:01 Morphine 4 Mg/1 Ml Inj IV Q4H PRN Pain , Severe (7-10) Ondansetron HCl 4 mg 03/11/22 04:01 Ondansetron 4 Mg/2 Ml Inj IV Q8H PRN Nausea And Vomiting Pyrazinamide 1,500 mg 03/17/22 14:00 03/17/22 15:48 Pyrazinamide 500 Mg Tab PO 1,500 mg QDAY CALLY Administration Pyridoxine HCl 50 mg 03/17/22 14:00 03/17/22 15:34 Pyridoxine 50 Mg Tab PO 50 mg QDAY CALLY Administration Rifampin 600 mg 03/17/22 14:00 03/17/22 15:34 Rifampin 300 Mg Cap PO 600 mg QDAY CALLY Administration Sodium Chloride 10 ml 03/11/22 10:00 03/17/22 17:48 Sodium Chloride 0.9% 10 Ml Flush Syringe IV Not Given BID CALLY Sodium Chloride 10 ml 03/11/22 04:01 Sodium Chloride 0.9% 10 Ml Flush Syringe IV PRN PRN LINE FLUSH Nutrition/Malnutrition Assess - Dietary Evaluation Nutrition/Malnutrition Findings: Nutrition Notes Start: 03/11/22 13:57 Freq: Status: Active Protocol: Document 03/11/22 13:57 YEYO (Rec: 03/11/22 14:32 YEYO [id number]) Nutrition Notes Need for Assessment generated from: 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 Current Diet Cardiac Diet (since B 03/11). Labs/Tests 03/11: Na 134, Cl 94.5, BUN 6, Crea 0.3, Glu 224. Pertinent Medications 03/11: Nutritionally unremarkable. Height 5 ft 7 in Weight 65.77 kg [place] Body Weight (kg) 61.36 BMI 22.7 Intake Prior to Admission Poor Weight change and time frame Pt states that has, unintentionally, loss more than 34 lb [employer]ENTAL [employer]OLD [employer]. Pt stated that has not loss any body weight recently, according to History and Physical notes. Weight Status Appropriate Subjective/Other Information RD consult for risk of malnutrition assessment and dietary supplementation evaluation. No reports available on Pt's PO intake of meals at the time , will assess at F/U. Pt is on Room Air, O2 saturation @ 94%, according to Physical Assessment History notes. 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 There is no reason that might have trigger significant body weight loss in Pt Hx, according to information documented in the chart. Pt shows, therefore, no signs of concern for risk of malnutrition at the time. Dietary supplementation seems to be unnecessary at the time, I will not prescribe any for now and will assess at F/U. Percent of energy/protein needs met: Prescribed Cardiac Diet provides for energy/protein needs (2,230 Kcal/85 g) during LOS. Burn Absent Trauma Absent GI Symptoms None Food Allergy No Skin Integrity/Comment Assessment WNL. Minimum of two criteria No #1 Nutrition Diagnosis No nutrition diagnosis at this time Comments: Will assess Pt's PO intake of meals and ONS needs at F/U. Is patient on ventilator? No Is Patient Ambulatory and/or Out of Bed Yes REE-([facility]-ambulatory/OOB) [ [id number] [id number]] Calculation Used for Recommendations [facility] Additional Notes Protein: 0.8-1 g/Kg ABW; 53-66 g/day. Fluids: 1 ml/Kcal, or as per MD. Nutrition Intervention Change Diet Order: Continue Cardiac Diet. Follow-Up By: 03/18/22 Additional Comments Continue monitoring food tolerance, %PO intake of meals , and BM.
[2022-03-18] MEDS: HEPARIN 5,000 UNIT/1 ML VIAL SUB-Q SCH ×3 (05:22→21:43)
[2022-03-18] MEDS: ETHAMBUTOL 400 MG TAB PO SCH (11:13)
[2022-03-18] MEDS: rifAMPin 300 MG CAP PO SCH (11:13)
[2022-03-18] MEDS: ISONIAZID 300 MG TAB PO SCH (11:13)
[2022-03-18] MEDS: PYRAZINAMIDE 500 MG TAB PO SCH (11:14)
[2022-03-18] MEDS: PYRIDOXINE 50 MG TAB PO SCH (11:15)
[2022-03-18] MEDS: INSULIN LISPRO 100 UNIT/ML SUB-Q SCH ×4 (11:15→21:48)
--- NOTE | 2022-03-18 11:53 | Progress Note ---
Assessment and Plan Cultures: 03/10/2022 blood culture: no growth 03/11/2022 HIV: Nonreactive 03/12/2022 sputum culture: normal resp zay 03/11/2022 ANCA, JOHN: Negative 03/11/2022 TB QuantiFERON gold: Positive 03/13/2022 sputum AFB: Smear with 4+ AFB A/P: 46-year-old female with asthma, hypertension admitted with fever, cough, greenish sputum production going on for about 3 months beginning in late November: #Bilateral cavitary pneumonia, left greater than right, likely secondary to pulmonary tuberculosis #Fevers likely secondary to above. #Weight loss, anorexia with history of TB exposure #History of LTBI treatment about 2 years ago with once weekly therapy x 12 weeks (likely INH + Rifapentine) Recs: -continue airborne precautions, F/U AFB culture and TB DNA Probe -continue PO RIPE + B6, D2 -Case management consulted for [facility] to take over directly observed therapy for TB once discharged. Once this is arranged, patient can be discharged from ID standpoint and will continue to follow with the Health Department -can follow up with ID clinic ROBERT Up MD, FACP, [facility] O: [phone] F: [phone] C: [phone] Subjective Date of service: 03/18/22 Principal diagnosis: Abnormal CT scan; Sebastien. Cavitary Pneumonia; Mediastinal and hilar adenopathy Interval history: No complaints. Low grade fever. Feels well. Tolerating TB meds. No nausea, vomiting. Says cough is less. Objective - Exam Narrative Exam: Physical Exam: Constitutional: Alert, cooperative. No acute distress Head, Ears, Nose: Normocephalic, atraumatic. External ears, nose normal Eyes: Conjunctivae/corneas clear. No icterus. No ptosis. Neck: Supple, no meningeal signs Cardiovascular: S1, S2 + Respiratory: AE fair bilaterally GI: Soft, non-tender; bowel sounds normal. No peritoneal signs Musculoskeletal: No pedal edema, no cyanosis. Skin: No rash or abscess Hem/Lymphatic: No palpable cervical or supraclavicular nodes. No lymphangitis Psych: Mood ok. Affect normal Neurological: Awake, alert, oriented. No gross abnormality - Constitutional Vitals: Vital Signs Temp Pulse Resp BP Pulse Ox 98.8 F 86 20 126/84 96 03/18/22 04:44 03/18/22 04:44 03/18/22 04:44 03/18/22 04:44 03/18/22 04:44 Temperature -Last 24 Hours Temperature 98.8 F Temperature 97.6 F Temperature 100.1 F - Labs CBC & Chem 7: 03/14/22 07:05 03/14/22 07:05 Labs: Abnormal lab results 03/17/22 03/17/22 Range/Units 12:10 16:46 POC Glucose 137 H 153 H (70-105) mg/dL
--- NOTE | 2022-03-18 13:33 | Progress Note ---
Assessment and Plan 46-year-old -Sudanese female with known history of asthma and hypertension presenting to the emergency room today complaining of cough, shortness of breath and fever which has been ongoing for the past 3 weeks. Cough is said to be productive for some greenish sputum. She denies any chest pain. No headache or dizziness and no diaphoresis. Patient denies any nausea vomiting and no abdominal pain. She denies any sick contacts and no recent travel. She denies contact with anyone with COVID-19. Patient indicates that she has had 2 doses of COVID-19 vaccine but yet to receive the booster dose. Patient denies any weight loss or night sweats. Work-up in the emergency room , chest x-ray reveals severe bilateral airspace p neumonia, cavitary with large cavitation of the left apex. CT of the chest reveals:1. Multiple large cavitary lesions identified throughout both lungs most significantly within the left upper lobe where there is a large 8 cm cavitary lesion within the left apex. Although somewhat nonspecific these cavitary lesions appear most suggestive of a severe infectious process, likely mycobacterial in etiology. Severe left upper lobe pneumonia. Recommend close follow-up after treatment to ensure resolution. 2. Severe mediastinal adenopathy is probably reactive. 3. Small bilateral pleural effusions. Labs unremarkable. Patient commenced on empiric IV antibiotics for pneumonia. Will also be placed on isolation for possible pulmonary TB. Patients sputum for AFB results pending. Patient started on INH, Rifampin, Etanbutol, Pyrazynamide and B6. Patient told me she has history of positive PPD two years ago and she says she took INH prophylaxis. Patient has no history of smoking. Denies drug abuse. Drinks beer and vine at times. Patient alert, awake. On room air. O2 saturation 96%. No acute respiratory distress. Has some cough. Patient afebrile. No leukocytosis. Blood pressure 120/80, rate 85, respirations 18. - Patient Problems (1) Acute chest pain Current Visit: Yes Status: Acute Plan to address problem: Likely pleuritic chest pain. (2) Bilateral pneumonia Current Visit: Yes Status: Acute Plan to address problem: Patient was treated with ceftriaxone, zithromax and Zosyn. (3) Pulmonary cavitary lesion Current Visit: Yes Status: Acute Plan to address problem: Respiratory isolation. Patient is on INH, rifampin, Ethabutol, Pyrazynamide and B6. Sputum for AFB results still pending. Subjective Date of service: 03/18/22 Principal diagnosis: Abnormal CT scan; Sebastien. Cavitary Pneumonia; Mediastinal and hilar adenopathy Interval history: 46-year-old -Sudanese female with known history of asthma and hypertension presenting to the emergency room today complaining of cough, shortness of breath and fever which has been ongoing for the past 3 weeks. Cough is said to be productive for some greenish sputum. She denies any chest pain. No headache or dizziness and no diaphoresis. Patient denies any nausea vomiting and no abdominal pain. She denies any sick contacts and no recent travel. She denies contact with anyone with COVID-19. Patient indicates that she has had 2 doses of COVID-19 vaccine but yet to receive the booster dose. Patient denies any weight loss or night sweats. Work-up in the emergency room , chest x-ray reveals severe bilateral airspace pneumonia, cavitary with large cavitation of the left apex. CT of the chest reveals:1. Multiple large cavitary lesions identified throughout both lungs most significantly within the left upper lobe where there is a large 8 cm cavitary lesion within the left apex. Although somewhat nonspecific these cavitary lesions appear most suggestive of a severe infectious process, likely mycobacterial in etiology. Severe left upper lobe pneumonia. Recommend close follow-up after treatment to ensure resolution. 2. Severe mediastinal adenopathy is probably reactive. 3. Small bilateral pleural effusions. Labs unremarkable. Patient commenced on empiric IV antibiotics for pneumonia. Will also be placed on isolation for possible pulmonary TB. Patients sputum for AFB results pending. Patient started on INH, Rifampin, Etanbutol, Pyrazynamide and B6. Patient told me she has history of positive PPD two years ago and she says she took INH prophylaxis. Patient has no history of smoking. Denies drug abuse. Drinks beer and vine at times. Patient alert, awake. On room air. O2 saturation 96%. No acute respiratory distress. Has some cough. Patient afebrile. No leukocytosis. Blood pressure 120/80, rate 85, respirations 18. Objective Vital Signs - 12hr 03/18/22 04:44 Temperature 98.8 F Pulse Rate 86 Respiratory 20 Rate Blood Pressure 126/84 O2 Sat by Pulse 96 Oximetry Constitutional: no acute distress, alert, other (thin, chronically ill looking) Eyes: non-icteric ENT: oropharynx moist Neck: supple, no lymphadenopathy Effort: normal Ascultation: Bilateral: diminished breath sounds, rhonchi Percussion: Bilateral: not dull Cardiovascular: regular rate and rhythm, other (S1,S2) Gastrointestinal: normoactive bowel sounds, soft, non-tender, tender, non- distended Integumentary: normal Extremities: no cyanosis, no edema, pulses normal Neurologic: normal mental status, non-focal exam, pupils equal and round, CN II- XII normal, motor strength normal and Psychiatric: mood appropriate, affect normal CBC and BMP: 03/14/22 07:05 03/14/22 07:05 Abnormal lab findings: Abnormal Labs 03/10/22 03/10/22 03/10/22 23:46 23:46 23:46 RBC Hgb RDW 16.4 H Lymph % (Auto) 13.1 L [place] % (Auto) 9.0 H Lymph # (Auto) 0.8 L Seg Neutrophils % 76.3 H Sodium 134 L Potassium Chloride 94.5 L BUN 6 L Creatinine 0.3 L Glucose 224 H POC Glucose Hemoglobin A1c Calcium Direct Bilirubin 0.3 H Alkaline Phosphatase 160 H Albumin 3.1 L TB (QFT) Gold In Tube 03/11/22 03/12/22 03/12/22 15:05 05:53 05:53 RBC 3.54 L Hgb RDW 16.1 H Lymph % (Auto) [place] % (Auto) 10.4 H Lymph # (Auto) 0.7 L Seg Neutrophils % 73.0 H Sodium 136 L Potassium 3.1 L Chloride BUN 2 L Creatinine 0.2 L Glucose 240 H POC Glucose Hemoglobin A1c Calcium 8.0 L Direct Bilirubin Alkaline Phosphatase Albumin TB (QFT) Gold In Tube Positive H 03/13/22 03/13/22 03/13/22 06:58 13:12 16:51 RBC Hgb RDW Lymph % (Auto) [place] % (Auto) Lymph # (Auto) Seg Neutrophils % Sodium 135 L Potassium 3.0 L Chloride 96.5 L BUN 3 L Creatinine 0.3 L Glucose 245 H POC Glucose 135 H Hemoglobin A1c 9.1 H Calcium Direct Bilirubin Alkaline Phosphatase Albumin TB (QFT) Gold In Tube 03/13/22 03/14/22 03/14/22 21:09 07:05 07:05 RBC 3.47 L Hgb 9.8 L RDW 16.3 H Lymph % (Auto) [place] % (Auto) Lymph # (Auto) Seg Neutrophils % Sodium Potassium Chloride BUN 3 L Creatinine 0.3 L Glucose 203 H POC Glucose 184 H Hemoglobin A1c Calcium Direct Bilirubin Alkaline Phosphatase Albumin TB (QFT) Gold In Tube 03/14/22 03/14/22 03/14/22 08:53 11:17 16:13 RBC Hgb RDW Lymph % (Auto) [place] % (Auto) Lymph # (Auto) Seg Neutrophils % Sodium Potassium Chloride BUN Creatinine Glucose POC Glucose 166 H 131 H 207 H Hemoglobin A1c Calcium Direct Bilirubin Alkaline Phosphatase Albumin TB (QFT) Gold In Tube 03/14/22 03/15/22 03/15/22 22:13 07:19 11:17 RBC Hgb RDW Lymph % (Auto) [place] % (Auto) Lymph # (Auto) Seg Neutrophils % Sodium Potassium Chloride BUN Creatinine Glucose POC Glucose 142 H 143 H 121 H Hemoglobin A1c Calcium Direct Bilirubin Alkaline Phosphatase Albumin TB (QFT) Gold In Tube 03/15/22 03/15/22 03/16/22 16:09 22:05 07:18 RBC Hgb RDW Lymph % (Auto) [place] % (Auto) Lymph # (Auto) Seg Neutrophils % Sodium Potassium Chloride BUN Creatinine Glucose POC Glucose 180 H 140 H 153 H Hemoglobin A1c Calcium Direct Bilirubin Alkaline Phosphatase Albumin TB (QFT) Gold In Tube 03/16/22 03/16/22 03/16/22 11:39 15:52 21:57 RBC Hgb RDW Lymph % (Auto) [place] % (Auto) Lymph # (Auto) Seg Neutrophils % Sodium Potassium Chloride BUN Creatinine Glucose POC Glucose 216 H 212 H 127 H Hemoglobin A1c Calcium Direct Bilirubin Alkaline Phosphatase Albumin TB (QFT) Gold In Tube 03/17/22 03/17/22 03/17/22 07:50 12:10 16:46 RBC Hgb RDW Lymph % (Auto) [place] % (Auto) Lymph # (Auto) Seg Neutrophils % Sodium Potassium Chloride BUN Creatinine Glucose POC Glucose 118 H 137 H 153 H Hemoglobin A1c Calcium Direct Bilirubin Alkaline Phosphatase Albumin TB (QFT) Gold In Tube 03/17/22 03/18/22 21:56 11:49 RBC Hgb RDW Lymph % (Auto) [place] % (Auto) Lymph # (Auto) Seg Neutrophils % Sodium Potassium Chloride BUN Creatinine Glucose POC Glucose 112 H 111 H Hemoglobin A1c Calcium Direct Bilirubin Alkaline Phosphatase Albumin TB (QFT) Gold In Tube Chest x-ray: report reviewed, image reviewed CT scan - chest: report reviewed, image reviewed Additional Studies: CT chest w con 03/11/22 INDICATION / CLINICAL INFORMATION: Severe dyspnea TECHNIQUE: Routine CT of the chest following 100 mL Omnipaque [address] scans at this location are performed using CT dose reduction for ALARA by means of automated exposure control. COMPARISON: None available. FINDINGS: Multiple large cavitary lesions are identified throughout both lungs the largest within the left apex where there is a large 8 cm cavitary lesion. Multiple additional cavitary lesions and severe consolidation are identified throughout the left upper lobe. Smaller but large cavitary lesions are identified throughout the left lung. There are multiple smaller cavitary lesions within the right upper lobe, right middle lobe and right lower lobe. Small bilateral pleural effusions are present. Scattered bronchopneumonia/tree-in-bud type opacities are present within the right lung. There is extensive and severe mediastinal and bilateral hilar adenopathy. Heart size is normal. Review of the upper abdomen demonstrates no acute findings. Review of bone windows demonstrates no significant abnormality. IMPRESSION: 1. Multiple large cavitary lesions identified throughout both lungs most significantly within the left upper lobe where there is a large 8 cm cavitary lesion within the left apex. Although somewhat nonspecific these cavitary lesions appear most suggestive of a severe infectious process, likely mycobacterial in etiology. Severe left upper lobe pneumonia. Recommend close follow-up after treatment to ensure resolution. 2. Severe mediastinal adenopathy is probably reactive. 3. Small bilateral pleural effusions. CHEST 1 VIEW 03/11/22 INDICATION / CLINICAL INFORMATION: cough. FINDINGS: SUPPORT DEVICES: None. HEART / MEDIASTINUM: No significant abnormality. LUNGS / PLEURA: Severe bilateral airspace pneumonia, cavitary and type with large cavitation of the left apex. Allied health notes reviewed: nursing
--- NOTE | 2022-03-18 19:48 | Progress Note ---
Assessment and Plan Assessment and plan: 46-year-old -Danish female with known history of asthma and hypertension presenting to the emergency room complaining of cough, shortness of breath and fever which has been ongoing for the past 3 weeks. Patient brother had h/o TB and she was treated for positive PPD. Work-up in the emergency room, chest x-ray reveals severe bilateral airspace pneumonia, cavitary with large cavitation of the left apex. CT of the chest reveals:1. Multiple large cavitary lesions identified throughout both lungs most significantly within the left upper lobe where there is a large 8 cm cavitary lesion within the left apex. Although somewhat nonspecific these cavitary lesions appear most suggestive of a severe infectious process, likely mycobacterial in etiology. Severe left upper lobe pneumonia. Recommend close follow-up after treatment to ensure resolution. 2. Severe mediastinal adenopathy is probably reactive. 3. Small bilateral pleural effusions. Patient commenced on empiric IV antibiotics for pneumonia, placed on isolation for possible pulmonary TB. Daily hospital course: 03/12: cont empiric abx, follow afb smear - if neg plan for bronch on Monday. 03/13 patient is alert and oriented, complains of productive cough with greenish sputum. Denies any chest pain, fever or chills. Lab results reviewed, ID and pulmonary notes reviewed and appreciated 03/14: AFB smear pending, bronch pending on AFB smear - reorder the test. clinically improved. follow with supportive care. 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 recommendations noted and appreciated Assessment and plan ID has checked with microbiology for sputum for AFB AFB smear positive for AFB; sample days at [facility], TB probe was added on -High suspicion for TB, will start RIPE + B6 -Zosyn discontinued -Case management orders placed for initiation of directly observed therapy via health department --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 QuantiFERON gold test is positive Continue airborne isolation Started RIPE plus B6 Health department notified Will supervise directly observed therapy --Hypokalemia; Potassium supplemented Normal potassium levels --Hypertension Patient is normotensive off medications --History of latent TB diagnosed 2 years ago States she was treated for 12 weeks --Hyperglycemia/type 2 diabetes mellitus Check A1c 9.1 Accu-Chek sliding scale coverage ADA diet Long-acting insulin as needed -- Moderate protein calorie malnutrition; -- Moderate hypoalbuminemia; albumin 3.1 Nutrition supplements Nutrition consult if needed DVT prophylaxis; Subcu heparin We will adjust as needed the patient and adjust management as needed Plan of care reviewed with the patient and her nurse Consults and recommendations noted and appreciated ID, pulmonary recommendations noted and appreciated Closely monitor the patient and adjust management as needed Plan of care reviewed with the patient and nurse and case management History Interval history: I have seen and examined the patient who is in airborne isolation Patient feels slightly better, started on 4 drug regimen RIPE plus B 6 Vital signs noted, no new complaints Hospitalist Physical - Constitutional Vitals: Temp Pulse Resp BP Pulse Ox 98.8 F 86 14 126/84 95 03/18/22 04:44 03/18/22 04:44 03/18/22 10:00 03/18/22 04:44 03/18/22 10:00 General appearance: Present: no acute distress, well-nourished - EENT Eyes: Present: PERRL, EOM intact - Neck Neck: Present: supple, normal ROM - Respiratory Respiratory effort: normal Respiratory: bilateral: diminished, rhonchi, negative: rales, wheezing - Cardiovascular Rhythm: regular Heart Sounds: Present: S1 & S2 - Extremities Extremities: no ischemia, No edema - Abdominal General gastrointestinal: soft, non-tender, non-distended, normal bowel sounds - Integumentary Integumentary: Present: clear, warm - Psychiatric Psychiatric: appropriate mood/affect, cooperative - Neurologic Neurologic: CNII-XII intact, moves all extremities HEART Score - HEART Score Troponin: Troponin T < 0.010 ng/mL (0.00-0.029) 03/10/22 23:46 Results - Labs CBC & Chem 7: 03/14/22 07:05 03/14/22 07:05 Labs: Laboratory Last Values WBC 4.8 K/mm3 (4.5-11.0) 03/14/22 07:05 RBC 3.47 M/mm3 (3.65-5.03) L 03/14/22 07:05 Hgb 9.8 gm/dl (10.1-14.3) L 03/14/22 07:05 Hct 30.6 % (30.3-42.9) 03/14/22 07:05 MCV 88 fl (79-97) 03/14/22 07:05 MCH 28 pg (28-32) 03/14/22 07:05 MCHC 32 % (30-34) 03/14/22 07:05 RDW 16.3 % (13.2-15.2) H 03/14/22 07:05 Plt Count 310 K/mm3 (140-440) 03/14/22 07:05 Lymph % (Auto) 14.6 % (13.4-35.0) 03/12/22 05:53 [place] % (Auto) 10.4 % (0.0-7.3) H 03/12/22 05:53 Eos % (Auto) 1.1 % (0.0-4.3) 03/12/22 05:53 Baso % (Auto) 0.9 % (0.0-1.8) 03/12/22 05:53 Lymph # (Auto) 0.7 K/mm3 (1.2-5.4) L 03/12/22 05:53 [place] # (Auto) 0.5 K/mm3 (0.0-0.8) 03/12/22 05:53 Eos # (Auto) 0.1 K/mm3 (0.0-0.4) 03/12/22 05:53 Baso # (Auto) 0.0 K/mm3 (0.0-0.1) 03/12/22 05:53 Seg Neutrophils % 73.0 % (40.0-70.0) H 03/12/22 05:53 Seg Neutrophils # 3.7 K/mm3 (1.8-7.7) 03/12/22 05:53 Sodium 137 mmol/L (137-145) 03/14/22 07:05 Potassium 3.9 mmol/L (3.6-5.0) D 03/14/22 07:05 Chloride 100.0 mmol/L (98-107) 03/14/22 07:05 Carbon Dioxide 25 mmol/L (22-30) 03/14/22 07:05 Anion Gap 16 mmol/L 03/14/22 07:05 BUN 3 mg/dL (7-17) L 03/14/22 07:05 Creatinine 0.3 mg/dL (0.6-1.2) L 03/14/22 07:05 Estimated GFR > 60 ml/min 03/14/22 07:05 BUN/Creatinine Ratio 10 % 03/14/22 07:05 Glucose 203 mg/dL (65-100) H 03/14/22 07:05 POC Glucose 111 mg/dL (70-105) H 03/18/22 11:49 Hemoglobin A1c 9.1 % (4-6) H 03/13/22 13:12 Lactic Acid 1.50 mmol/L (0.7-2.0) 03/10/22 23:46 Calcium 8.9 mg/dL (8.4-10.2) 03/14/22 07:05 Total Bilirubin 1.10 mg/dL (0.1-1.2) 03/10/22 23:46 Direct Bilirubin 0.3 mg/dL (0-0.2) H 03/10/22 23:46 Indirect Bilirubin 0.8 mg/dL 03/10/22 23:46 AST 20 units/L (5-40) 03/10/22 23:46 ALT 13 units/L (7-56) 03/10/22 23:46 Alkaline Phosphatase 160 units/L (35-129) H 03/10/22 23:46 Troponin T < 0.010 ng/mL (0.00-0.029) 03/10/22 23:46 NT-Pro-B Natriuret Pep 55.01 pg/mL (0-450) 03/10/22 23:46 Total Protein 6.4 g/dL (6.3-8.2) 03/10/22 23:46 Albumin 3.1 g/dL (3.9-5) L 03/10/22 23:46 Albumin/Globulin Ratio 0.9 % 03/10/22 23:46 Urine Color Brandy (Yellow) 03/11/22 Unknown Urine Turbidity Clear (Clear) 03/11/22 Unknown Urine pH 5.0 (5.0-7.0) 03/11/22 Unknown Ur Specific [place] 1.020 (1.003-1.030) 03/11/22 Unknown Urine Protein 30 mg/dl mg/dL (Negative) 03/11/22 Unknown Urine Glucose (UA) 50 mg/dL (Negative) 03/11/22 Unknown Urine Ketones 20 mg/dL (Negative) 03/11/22 Unknown Urine Blood Neg (Negative) 03/11/22 Unknown Urine Nitrite Neg (Negative) 03/11/22 Unknown Urine Bilirubin Neg (Negative) 03/11/22 Unknown Urine Urobilinogen 4.0 mg/dL (<2.0) 03/11/22 Unknown Ur Leukocyte Esterase Mod (Negative) 03/11/22 Unknown Urine WBC (Auto) < 1.0 /HPF (0.0-6.0) 03/11/22 Unknown Urine RBC (Auto) < 1.0 /HPF (0.0-6.0) 03/11/22 Unknown JOHN Screen Negative (Negative) 03/11/22 15:05 Proteinase 3 (PR3) Ab <1.0 AI (<1.0) 03/11/22 15:05 Myeloperoxidase Ab <1.0 AI (<1.0) 03/11/22 15:05 HIV 1&2 Antibody Rapid Non react (Non React) 03/11/22 15:05 HIV P24 Antigen Non react (Non React) 03/11/22 15:05 TB (QFT) Gold In Tube Positive (NEGATIVE) H 03/11/22 15:05 TB Test (QFT) Nil 3.15 IU/mL 03/11/22 15:05 TB Test Mitogen - Nil 3.92 IU/mL 03/11/22 15:05 TB Test Ag - Nil 1 3.85 IU/mL 03/11/22 15:05 TB Test Ag - Nil 2 3.40 IU/mL 03/11/22 15:05 [place]/IV: Voiding Method Toilet Active Medications - Current Medications Current Medications: Generic Name Dose Route Start Last Admin Trade Name Freq PRN Reason Stop Dose Admin Acetaminophen 650 mg 03/11/22 04:01 03/17/22 17:42 Acetaminophen 325 Mg Tab PO 650 mg Q4H PRN Administration Pain MILD(1-3)/Fever >100.5/ROSEN Ethambutol HCl 1,200 mg 03/17/22 14:00 03/18/22 11:13 Ethambutol 400 Mg Tab PO 1,200 mg QDAY CALLY Administration Heparin Sodium (Porcine) 5,000 unit 03/11/22 06:00 03/18/22 18:53 Heparin 5,000 Unit/1 Ml Vial SUB-Q Not Given Q8HR [facility] Insulin Human Lispro 0 unit 03/13/22 16:30 03/18/22 18:54 Insulin Lispro 100 Unit/Ml SUB-Q Not Given ACHS [facility] Protocol Isoniazid 300 mg 03/17/22 14:00 03/18/22 11:13 Isoniazid 300 Mg Tab PO 300 mg QDAY CALLY Administration Magnesium Hydroxide 30 ml 03/11/22 04:01 Magnesium Hydroxide (Mom) Oral Liqd Udc PO Q4H PRN Constipation Morphine Sulfate 2 mg 03/11/22 04:01 Morphine 2 Mg/1 Ml Inj IV Q4H PRN Pain, Moderate (4-6) Morphine Sulfate 4 mg 03/11/22 04:01 Morphine 4 Mg/1 Ml Inj IV Q4H PRN Pain , Severe (7-10) Ondansetron HCl 4 mg 03/11/22 04:01 Ondansetron 4 Mg/2 Ml Inj IV Q8H PRN Nausea And Vomiting Pyrazinamide 1,500 mg 03/17/22 14:00 03/18/22 11:14 Pyrazinamide 500 Mg Tab PO 1,500 mg QDAY CALLY Administration Pyridoxine HCl 50 mg 03/17/22 14:00 03/18/22 11:15 Pyridoxine 50 Mg Tab PO 50 mg QDAY CALLY Administration Rifampin 600 mg 03/17/22 14:00 03/18/22 11:13 Rifampin 300 Mg Cap PO 600 mg QDAY CALLY Administration Sodium Chloride 10 ml 03/11/22 10:00 03/18/22 11:15 Sodium Chloride 0.9% 10 Ml Flush Syringe IV 10 ml BID CALLY Administration Sodium Chloride 10 ml 03/11/22 04:01 Sodium Chloride 0.9% 10 Ml Flush Syringe IV PRN PRN LINE FLUSH Nutrition/Malnutrition Assess - Dietary Evaluation Nutrition/Malnutrition Findings: Nutrition Notes Start: 03/11/22 13:57 Freq: Status: Active Protocol: Document 03/18/22 11:07 JARET (Rec: 03/18/22 11:11 JARET [id number]) Nutrition Notes Initial or Follow up Reassessment Current Diagnosis Diabetes,Hypertension Other Pertinent Diagnosis (+) AFB, pneu Current Diet Cardiac Labs/Tests Reviewed Pertinent Medications Reviewed Height 5 ft 7 in Weight 65.77 kg [place] Body Weight (kg) 61.36 BMI 22.7 Weight Status Appropriate Subjective/Other Information Pt has consumed 88% of meals since last assessment. Percent of energy/protein needs met: 100% energy and pro Burn Absent Trauma Absent Minimum of two criteria No #1 Nutrition Diagnosis Altered nutrition-related laboratory values Etiology DM As Evidenced by Signs and Symptoms A1C 9.1 Is patient on ventilator? No Is Patient Ambulatory and/or Out of Bed Yes REE-([facility]-ambulatory/OOB) [ [id number] [id number]] Calculation Used for Recommendations [facility] Additional Notes Pro needs 0.8-1g/k-66g/ day Fluid needs 1ml/kcal Nutrition Intervention Change Diet Order: Add consistenst CHO modifier to current diet order Goal #1 PO intakes to continue to meet at least 75% energy and pro needs Goal #2 Improved BG control Anticipated Discharge Needs: CHO controlled diet Revisit per MD consult or patient Sign Off request:
[2022-03-19] MEDS: HEPARIN 5,000 UNIT/1 ML VIAL SUB-Q SCH ×3 (05:48→22:18)
[2022-03-19] MEDS: INSULIN LISPRO 100 UNIT/ML SUB-Q SCH ×3 (08:43→22:02)
[2022-03-19] MEDS: PYRAZINAMIDE 500 MG TAB PO SCH (09:01)
[2022-03-19] MEDS: ISONIAZID 300 MG TAB PO SCH (09:01)
[2022-03-19] MEDS: rifAMPin 300 MG CAP PO SCH (09:02)
[2022-03-19] MEDS: PYRIDOXINE 50 MG TAB PO SCH (09:02)
[2022-03-19] MEDS: ETHAMBUTOL 400 MG TAB PO SCH (09:02)
--- NOTE | 2022-03-19 12:03 | Progress Note ---
Assessment and Plan Abnormal CXR/CT scan Bilateral cavitary infiltrates Mediastinal and hilar adenopathy Weight loss and Anorexia H/O of TB exposure H/O LTBI treatment in 2019 (once weekly therapy, 4 drug therapy per patient x 12 weeks) - continue on RIPE + B6 for active TB empirically - continue airborne isolation - Sputum for AFB x3 pending - tentative bronchoscopy if & when active TB ruled out - continue care as below otherwise; - supplemental oxygen to keep O2 sats > 90% - bronchodilators (CHRIS) with pulm hygiene per RT - continue to avoid nephrotoxins, renally dose all medications - continue mobility protocols to prevent pressure ulcers - PT/OT as tolerated - Wound care per RN/WCT - continue accuchecks with glycemic control per SSI for target blood glucose < 180 mg/dL - tobacco abstinence strongly counseled at the bedside - home oxygen evaluation at discharge - prn analgesia per pain score - GI & VTE prophylaxis - Flu & pneumovax per protocol - Pulmonary out patient follow up for PFTs and optimization of respiratory status - continue other care per attending / other consultants ... re-evaluate in am & prn Subjective Date of service: 03/19/22 Principal diagnosis: Abnormal CT scan; [place]. Cavitary Pneumonia; Mediastinal and hilar adenopathy Interval history: Patient is seen today for: Abnormal CXR/CT scan; Bilateral cavitary infiltrates; Mediastinal and hilar adenopathy; Weight loss and Anorexia ; H/O of TB exposure; H/O LTBI treatment in 2019 Seen and examined at bedside; 24hour events reviewed; nursing and respiratory care staff consulted; no adverse overnight events reported to me; resting in bed; no new issues respiratory cadena; AFB smears still pending Objective Vital Signs - 12hr 03/19/22 03/19/22 03/19/22 04:47 09:04 11:30 Temperature 98.2 F 97.9 F Pulse Rate 76 82 Respiratory 18 16 18 Rate Blood Pressure 117/78 116/79 [Left] O2 Sat by Pulse 94 98 95 Oximetry Constitutional: no acute distress, alert, other (thin, chronically ill looking) Eyes: non-icteric ENT: oropharynx moist Neck: supple, no lymphadenopathy Effort: normal Ascultation: Bilateral: diminished breath sounds, rhonchi Percussion: Bilateral: not dull Cardiovascular: regular rate and rhythm, other (S1,S2) Gastrointestinal: normoactive bowel sounds, soft, non-tender, tender, non- distended Integumentary: normal Extremities: no cyanosis, no edema, pulses normal Neurologic: normal mental status, non-focal exam, pupils equal and round, CN II- XII normal, motor strength normal and Psychiatric: mood appropriate, affect normal CBC and BMP: 03/14/22 07:05 03/14/22 07:05 Abnormal lab findings: Abnormal Labs 03/10/22 03/10/22 03/10/22 23:46 23:46 23:46 RBC Hgb RDW 16.4 H Lymph % (Auto) 13.1 L [place] % (Auto) 9.0 H Lymph # (Auto) 0.8 L Seg Neutrophils % 76.3 H Sodium 134 L Potassium Chloride 94.5 L BUN 6 L Creatinine 0.3 L Glucose 224 H POC Glucose Hemoglobin A1c Calcium Direct Bilirubin 0.3 H Alkaline Phosphatase 160 H Albumin 3.1 L TB (QFT) Gold In Tube 03/11/22 03/12/22 03/12/22 15:05 05:53 05:53 RBC 3.54 L Hgb RDW 16.1 H Lymph % (Auto) [place] % (Auto) 10.4 H Lymph # (Auto) 0.7 L Seg Neutrophils % 73.0 H Sodium 136 L Potassium 3.1 L Chloride BUN 2 L Creatinine 0.2 L Glucose 240 H POC Glucose Hemoglobin A1c Calcium 8.0 L Direct Bilirubin Alkaline Phosphatase Albumin TB (QFT) Gold In Tube Positive H 03/13/22 03/13/22 03/13/22 06:58 13:12 16:51 RBC Hgb RDW Lymph % (Auto) [place] % (Auto) Lymph # (Auto) Seg Neutrophils % Sodium 135 L Potassium 3.0 L Chloride 96.5 L BUN 3 L Creatinine 0.3 L Glucose 245 H POC Glucose 135 H Hemoglobin A1c 9.1 H Calcium Direct Bilirubin Alkaline Phosphatase Albumin TB (QFT) Gold In Tube 03/13/22 03/14/22 03/14/22 21:09 07:05 07:05 RBC 3.47 L Hgb 9.8 L RDW 16.3 H Lymph % (Auto) [place] % (Auto) Lymph # (Auto) Seg Neutrophils % Sodium Potassium Chloride BUN 3 L Creatinine 0.3 L Glucose 203 H POC Glucose 184 H Hemoglobin A1c Calcium Direct Bilirubin Alkaline Phosphatase Albumin TB (QFT) Gold In Tube 03/14/22 03/14/22 03/14/22 08:53 11:17 16:13 RBC Hgb RDW Lymph % (Auto) [place] % (Auto) Lymph # (Auto) Seg Neutrophils % Sodium Potassium Chloride BUN Creatinine Glucose POC Glucose 166 H 131 H 207 H Hemoglobin A1c Calcium Direct Bilirubin Alkaline Phosphatase Albumin TB (QFT) Gold In Tube 03/14/22 03/15/22 03/15/22 22:13 07:19 11:17 RBC Hgb RDW Lymph % (Auto) [place] % (Auto) Lymph # (Auto) Seg Neutrophils % Sodium Potassium Chloride BUN Creatinine Glucose POC Glucose 142 H 143 H 121 H Hemoglobin A1c Calcium Direct Bilirubin Alkaline Phosphatase Albumin TB (QFT) Gold In Tube 03/15/22 03/15/22 03/16/22 16:09 22:05 07:18 RBC Hgb RDW Lymph % (Auto) [place] % (Auto) Lymph # (Auto) Seg Neutrophils % Sodium Potassium Chloride BUN Creatinine Glucose POC Glucose 180 H 140 H 153 H Hemoglobin A1c Calcium Direct Bilirubin Alkaline Phosphatase Albumin TB (QFT) Gold In Tube 03/16/22 03/16/22 03/16/22 11:39 15:52 21:57 RBC Hgb RDW Lymph % (Auto) [place] % (Auto) Lymph # (Auto) Seg Neutrophils % Sodium Potassium Chloride BUN Creatinine Glucose POC Glucose 216 H 212 H 127 H Hemoglobin A1c Calcium Direct Bilirubin Alkaline Phosphatase Albumin TB (QFT) Gold In Tube 03/17/22 03/17/22 03/17/22 07:50 12:10 16:46 RBC Hgb RDW Lymph % (Auto) [place] % (Auto) Lymph # (Auto) Seg Neutrophils % Sodium Potassium Chloride BUN Creatinine Glucose POC Glucose 118 H 137 H 153 H Hemoglobin A1c Calcium Direct Bilirubin Alkaline Phosphatase Albumin TB (QFT) Gold In Tube 03/17/22 03/18/22 03/18/22 21:56 11:49 17:16 RBC Hgb RDW Lymph % (Auto) [place] % (Auto) Lymph # (Auto) Seg Neutrophils % Sodium Potassium Chloride BUN Creatinine Glucose POC Glucose 112 H 111 H 107 H Hemoglobin A1c Calcium Direct Bilirubin Alkaline Phosphatase Albumin TB (QFT) Gold In Tube 03/18/22 21:45 RBC Hgb RDW Lymph % (Auto) [place] % (Auto) Lymph # (Auto) Seg Neutrophils % Sodium Potassium Chloride BUN Creatinine Glucose POC Glucose 118 H Hemoglobin A1c Calcium Direct Bilirubin Alkaline Phosphatase Albumin TB (QFT) Gold In Tube Allied health notes reviewed: nursing
--- NOTE | 2022-03-19 15:58 | Progress Note ---
Assessment and Plan Assessment and plan: 46-year-old -[place] female with known history of asthma and hypertension presenting to the emergency room complaining of cough, shortness of breath and fever which has been ongoing for the past 3 weeks. Patient brother had h/o TB and she was treated for positive PPD. Work-up in the emergency room, chest x-ray reveals severe bilateral airspace pneumonia, cavitary with large cavitation of the left apex. CT of the chest reveals:1. Multiple large cavitary lesions identified throughout both lungs most significantly within the left upper lobe where there is a large 8 cm cavitary lesion within the left apex. Although somewhat nonspecific these cavitary lesions appear most suggestive of a severe infectious process, likely mycobacterial in etiology. Severe left upper lobe pneumonia. Recommend close follow-up after treatment to ensure resolution. 2. Severe mediastinal adenopathy is probably reactive. 3. Small bilateral pleural effusions. Patient commenced on empiric IV antibiotics for pneumonia, placed on isolation for possible pulmonary TB. Daily hospital course: 03/12: cont empiric abx, follow afb smear - if neg plan for bronch on Monday. 03/13 patient is alert and oriented, complains of productive cough with greenish sputum. Denies any chest pain, fever or chills. Lab results reviewed, ID and pulmonary notes reviewed and appreciated 03/14: AFB smear pending, bronch pending on AFB smear - reorder the test. clinically improved. follow with supportive care. 03/15; follow-up TB work-up, follow consultants's evaluation and recommendations Possible bronchoscopy per pulmonary 03/16; pulmonary evaluation noted, possible bronchoscopy once active TB is ruled out 03/17 ; ID checked with microbiology AFP sputum tests positive for AFB ID started RI PE regimen, continue airborne isolation [employer] recommendations noted and appreciated 03/19/2022; awaiting health department recommendations Continue current management Assessment and plan ID has checked with microbiology for sputum for AFB AFB smear positive for AFB; sample days at [facility], TB probe was added on -High suspicion for TB, will start RIPE + B6 -Zosyn discontinued -Case management orders placed for initiation of directly observed therapy via health department --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 QuantiFERON gold test is positive Continue airborne isolation Started RIPE plus B6 Health department notified Will supervise directly observed therapy --Hypokalemia; Potassium supplemented Normal potassium levels --Hypertension Patient is normotensive off medications --History of latent TB diagnosed 2 years ago States she was treated for 12 weeks --Hyperglycemia/type 2 diabetes mellitus Check A1c 9.1 Accu-Chek sliding scale coverage ADA diet Long-acting insulin as needed -- Moderate protein calorie malnutrition; -- Moderate hypoalbuminemia; albumin 3.1 Nutrition supplements Nutrition consult if needed DVT prophylaxis; Subcu heparin We will adjust as needed the patient and adjust management as needed Plan of care reviewed with the patient and her nurse Consults and recommendations noted and appreciated ID, pulmonary recommendations noted and appreciated Closely monitor the patient and adjust management as needed Plan of care reviewed with the patient and nurse and case management History Interval history: I have seen and examined the patient at the bedside Patient is in airborne isolation room Of treatment, mild distress Already started 4 drug regimen RIPE ID following Health department will process the protocols Vital signs noted Hospitalist Physical - Constitutional Vitals: Temp Pulse Resp BP Pulse Ox 97.9 F 82 18 116/79 95 03/19/22 11:30 03/19/22 11:30 03/19/22 11:30 03/19/22 11:30 03/19/22 11:30 General appearance: Present: no acute distress, well-nourished, cachectic - EENT Eyes: Present: PERRL, EOM intact - Neck Neck: Present: supple, normal ROM - Respiratory Respiratory effort: normal Respiratory: bilateral: diminished, rales, negative: rhonchi, wheezing - Cardiovascular Rhythm: regular Heart Sounds: Present: S1 & S2 - Extremities Extremities: no ischemia, No edema - Abdominal General gastrointestinal: soft, non-tender, non-distended - Integumentary Integumentary: Present: clear, warm - Psychiatric Psychiatric: appropriate mood/affect, cooperative - Neurologic Neurologic: moves all extremities HEART Score - HEART Score Troponin: Troponin T < 0.010 ng/mL (0.00-0.029) 03/10/22 23:46 Results - Labs CBC & Chem 7: 03/14/22 07:05 03/14/22 07:05 Labs: Laboratory Last Values WBC 4.8 K/mm3 (4.5-11.0) 03/14/22 07:05 RBC 3.47 M/mm3 (3.65-5.03) L 03/14/22 07:05 Hgb 9.8 gm/dl (10.1-14.3) L 03/14/22 07:05 Hct 30.6 % (30.3-42.9) 03/14/22 07:05 MCV 88 fl (79-97) 03/14/22 07:05 MCH 28 pg (28-32) 03/14/22 07:05 MCHC 32 % (30-34) 03/14/22 07:05 RDW 16.3 % (13.2-15.2) H 03/14/22 07:05 Plt Count 310 K/mm3 (140-440) 03/14/22 07:05 Lymph % (Auto) 14.6 % (13.4-35.0) 03/12/22 05:53 [place] % (Auto) 10.4 % (0.0-7.3) H 03/12/22 05:53 Eos % (Auto) 1.1 % (0.0-4.3) 03/12/22 05:53 Baso % (Auto) 0.9 % (0.0-1.8) 03/12/22 05:53 Lymph # (Auto) 0.7 K/mm3 (1.2-5.4) L 03/12/22 05:53 [place] # (Auto) 0.5 K/mm3 (0.0-0.8) 03/12/22 05:53 Eos # (Auto) 0.1 K/mm3 (0.0-0.4) 03/12/22 05:53 Baso # (Auto) 0.0 K/mm3 (0.0-0.1) 03/12/22 05:53 Seg Neutrophils % 73.0 % (40.0-70.0) H 03/12/22 05:53 Seg Neutrophils # 3.7 K/mm3 (1.8-7.7) 03/12/22 05:53 Sodium 137 mmol/L (137-145) 03/14/22 07:05 Potassium 3.9 mmol/L (3.6-5.0) D 03/14/22 07:05 Chloride 100.0 mmol/L (98-107) 03/14/22 07:05 Carbon Dioxide 25 mmol/L (22-30) 03/14/22 07:05 Anion Gap 16 mmol/L 03/14/22 07:05 BUN 3 mg/dL (7-17) L 03/14/22 07:05 Creatinine 0.3 mg/dL (0.6-1.2) L 03/14/22 07:05 Estimated GFR > 60 ml/min 03/14/22 07:05 BUN/Creatinine Ratio 10 % 03/14/22 07:05 Glucose 203 mg/dL (65-100) H 03/14/22 07:05 POC Glucose 108 mg/dL (70-105) H 03/19/22 11:02 Hemoglobin A1c 9.1 % (4-6) H 03/13/22 13:12 Lactic Acid 1.50 mmol/L (0.7-2.0) 03/10/22 23:46 Calcium 8.9 mg/dL (8.4-10.2) 03/14/22 07:05 Total Bilirubin 1.10 mg/dL (0.1-1.2) 03/10/22 23:46 Direct Bilirubin 0.3 mg/dL (0-0.2) H 03/10/22 23:46 Indirect Bilirubin 0.8 mg/dL 03/10/22 23:46 AST 20 units/L (5-40) 03/10/22 23:46 ALT 13 units/L (7-56) 03/10/22 23:46 Alkaline Phosphatase 160 units/L (35-129) H 03/10/22 23:46 Troponin T < 0.010 ng/mL (0.00-0.029) 03/10/22 23:46 NT-Pro-B Natriuret Pep 55.01 pg/mL (0-450) 03/10/22 23:46 Total Protein 6.4 g/dL (6.3-8.2) 03/10/22 23:46 Albumin 3.1 g/dL (3.9-5) L 03/10/22 23:46 Albumin/Globulin Ratio 0.9 % 03/10/22 23:46 Urine Color Brandy (Yellow) 03/11/22 Unknown Urine Turbidity Clear (Clear) 03/11/22 Unknown Urine pH 5.0 (5.0-7.0) 03/11/22 Unknown Ur Specific [place] 1.020 (1.003-1.030) 03/11/22 Unknown Urine Protein 30 mg/dl mg/dL (Negative) 03/11/22 Unknown Urine Glucose (UA) 50 mg/dL (Negative) 03/11/22 Unknown Urine Ketones 20 mg/dL (Negative) 03/11/22 Unknown Urine Blood Neg (Negative) 03/11/22 Unknown Urine Nitrite Neg (Negative) 03/11/22 Unknown Urine Bilirubin Neg (Negative) 03/11/22 Unknown Urine Urobilinogen 4.0 mg/dL (<2.0) 03/11/22 Unknown Ur Leukocyte Esterase Mod (Negative) 03/11/22 Unknown Urine WBC (Auto) < 1.0 /HPF (0.0-6.0) 03/11/22 Unknown Urine RBC (Auto) < 1.0 /HPF (0.0-6.0) 03/11/22 Unknown JOHN Screen Negative (Negative) 03/11/22 15:05 Proteinase 3 (PR3) Ab <1.0 AI (<1.0) 03/11/22 15:05 Myeloperoxidase Ab <1.0 AI (<1.0) 03/11/22 15:05 HIV 1&2 Antibody Rapid Non react (Non React) 03/11/22 15:05 HIV P24 Antigen Non react (Non React) 03/11/22 15:05 TB (QFT) Gold In Tube Positive (NEGATIVE) H 03/11/22 15:05 TB Test (QFT) Nil 3.15 IU/mL 03/11/22 15:05 TB Test Mitogen - Nil 3.92 IU/mL 03/11/22 15:05 TB Test Ag - Nil 1 3.85 IU/mL 03/11/22 15:05 TB Test Ag - Nil 2 3.40 IU/mL 03/11/22 15:05 [place]/IV: Voiding Method Toilet Active Medications - Current Medications Current Medications: Generic Name Dose Route Start Last Admin Trade Name Freq PRN Reason Stop Dose Admin Acetaminophen 650 mg 03/11/22 04:01 03/17/22 17:42 Acetaminophen 325 Mg Tab PO 650 mg Q4H PRN Administration Pain MILD(1-3)/Fever >100.5/ROSEN Ethambutol HCl 1,200 mg 03/17/22 14:00 03/19/22 09:02 Ethambutol 400 Mg Tab PO 1,200 mg QDAY CALLY Administration Heparin Sodium (Porcine) 5,000 unit 03/11/22 06:00 03/19/22 05:48 Heparin 5,000 Unit/1 Ml Vial SUB-Q 5,000 unit Q8HR CALLY Administration Insulin Human Lispro 0 unit 03/13/22 16:30 03/19/22 13:11 Insulin Lispro 100 Unit/Ml SUB-Q Not Given ACHS CALLY Protocol Isoniazid 300 mg 03/17/22 14:00 03/19/22 09:01 Isoniazid 300 Mg Tab PO 300 mg QDAY CALLY Administration Magnesium Hydroxide 30 ml 03/11/22 04:01 Magnesium Hydroxide (Mom) Oral Liqd Udc PO Q4H PRN Constipation Morphine Sulfate 2 mg 03/11/22 04:01 Morphine 2 Mg/1 Ml Inj IV Q4H PRN Pain, Moderate (4-6) Morphine Sulfate 4 mg 03/11/22 04:01 Morphine 4 Mg/1 Ml Inj IV Q4H PRN Pain , Severe (7-10) Ondansetron HCl 4 mg 03/11/22 04:01 Ondansetron 4 Mg/2 Ml Inj IV Q8H PRN Nausea And Vomiting Pyrazinamide 1,500 mg 03/17/22 14:00 03/19/22 09:01 Pyrazinamide 500 Mg Tab PO 1,500 mg QDAY CALLY Administration Pyridoxine HCl 50 mg 03/17/22 14:00 03/19/22 09:02 Pyridoxine 50 Mg Tab PO 50 mg QDAY CALLY Administration Rifampin 600 mg 03/17/22 14:00 03/19/22 09:02 Rifampin 300 Mg Cap PO 600 mg QDAY CALLY Administration Sodium Chloride 10 ml 03/11/22 10:00 03/19/22 09:02 Sodium Chloride 0.9% 10 Ml Flush Syringe IV 10 ml BID CALLY Administration Sodium Chloride 10 ml 03/11/22 04:01 Sodium Chloride 0.9% 10 Ml Flush Syringe IV PRN PRN LINE FLUSH Nutrition/Malnutrition Assess - Dietary Evaluation Nutrition/Malnutrition Findings: Nutrition Notes Start: 03/11/22 13:57 Freq: Status: Active Protocol: Document 03/18/22 11:07 JARET (Rec: 03/18/22 11:11 JARET [id number]) Nutrition Notes Initial or Follow up Reassessment Current Diagnosis Diabetes,Hypertension Other Pertinent Diagnosis (+) AFB, pneu Current Diet Cardiac Labs/Tests Reviewed Pertinent Medications Reviewed Height 5 ft 7 in Weight 65.77 kg [place] Body Weight (kg) 61.36 BMI 22.7 Weight Status Appropriate Subjective/Other Information Pt has consumed 88% of meals since last assessment. Percent of energy/protein needs met: 100% energy and pro Burn Absent Trauma Absent Minimum of two criteria No #1 Nutrition Diagnosis Altered nutrition-related laboratory values Etiology DM As Evidenced by Signs and Symptoms A1C 9.1 Is patient on ventilator? No Is Patient Ambulatory and/or Out of Bed Yes REE-([facility]-ambulatory/OOB) [ [id number] [id number]] Calculation Used for Recommendations [facility] Additional Notes Pro needs 0.8-1g/k-66g/ day Fluid needs 1ml/kcal Nutrition Intervention Change Diet Order: Add consistenst CHO modifier to current diet order Goal #1 PO intakes to continue to meet at least 75% energy and pro needs Goal #2 Improved BG control Anticipated Discharge Needs: CHO controlled diet Revisit per MD consult or patient Sign Off request:
[2022-03-20] MEDS: HEPARIN 5,000 UNIT/1 ML VIAL SUB-Q SCH ×3 (06:15→22:37)
[2022-03-20] MEDS: INSULIN LISPRO 100 UNIT/ML SUB-Q SCH ×3 (07:52→23:30)
[2022-03-20] MEDS: PYRAZINAMIDE 500 MG TAB PO SCH (10:24)
[2022-03-20] MEDS: rifAMPin 300 MG CAP PO SCH (10:24)
[2022-03-20] MEDS: ISONIAZID 300 MG TAB PO SCH (10:24)
[2022-03-20] MEDS: PYRIDOXINE 50 MG TAB PO SCH (10:25)
[2022-03-20] MEDS: ETHAMBUTOL 400 MG TAB PO SCH (10:25)
--- NOTE | 2022-03-20 12:19 | Progress Note ---
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 QuantiFERON gold test is positive Continue airborne isolation Started RIPE plus B6 Health department notified Will supervise directly observed therapy --Hypokalemia; Potassium supplemented Normal potassium levels --Hypertension Patient is normotensive off medications --History of latent TB diagnosed 2 years ago States she was treated for 12 weeks --Hyperglycemia/type 2 diabetes mellitus Check A1c 9.1 Accu-Chek sliding scale coverage ADA diet Long-acting insulin as needed -- Moderate protein calorie malnutrition; -- Moderate hypoalbuminemia; albumin 3.1 Nutrition supplements Glucerna 1 can 3 times a day Nutrition consult if needed DVT prophylaxis; Subcu heparin We will adjust as needed the patient and adjust management as needed Plan of care reviewed with the patient and her nurse Consults and recommendations noted and appreciated ID, pulmonary recommendations noted and appreciated Closely monitor the patient and adjust management as needed Plan of care reviewed with the patient and nurse and case management 46-year-old -Citizen Of [place] female with known history of asthma and hypertension presenting to the emergency room complaining of cough, shortness of breath and fever which has been ongoing for the past 3 weeks. Patient brother had h/o TB and she was treated for positive PPD. Work-up in the emergency room, chest x-ray reveals severe bilateral airspace pneumonia, cavitary with large cavitation of the left apex. CT of the chest reveals:1. Multiple large cavitary lesions identified throughout both lungs most significantly within the left upper lobe where there is a large 8 cm cavitary lesion within the left apex. Although somewhat nonspecific these cavitary lesions appear most suggestive of a severe infectious process, likely mycobacterial in etiology. Severe left upper lobe pneumonia. Recommend close follow-up after treatment to ensure resolution. 2. Severe mediastinal adenopathy is probably reactive. 3. Small bilateral pleural effusions. Patient commenced on empiric IV antibiotics for pneumonia, placed on isolation for possible pulmonary TB. Daily hospital course: 03/12: cont empiric abx, follow afb smear - if neg plan for bronch on Monday. 03/13 patient is alert and oriented, complains of productive cough with greenish sputum. Denies any chest pain, fever or chills. Lab results reviewed, ID and pulmonary notes reviewed and appreciated 03/14: AFB smear pending, bronch pending on AFB smear - reorder the test. clinically improved. follow with supportive care. 03/15; follow-up TB work-up, follow consultants's evaluation and recommendations Possible bronchoscopy per pulmonary 03/16; pulmonary evaluation noted, possible bronchoscopy once active TB is ruled out 03/17 ; ID checked with microbiology AFP sputum tests positive for AFB ID started RI PE regimen, continue airborne isolation Bead Trimmer recommendations noted and appreciated 03/19/2022; awaiting health department recommendations Continue current management 03/20/2022; patient is on 4 drug regimen Awaiting health department's recommendations Continue airborne isolation Nutrition supplements glycerin added History Interval history: I have seen and examined the patient in airborne isolation room I have used the protective gear patient feels better, Mild shortness of breath, denies any chest pain Vital signs reviewed Hospitalist Physical - Constitutional Vitals: Temp Pulse Resp BP Pulse Ox 97.4 F L 91 H 14 125/88 93 03/20/22 04:55 03/20/22 04:55 03/20/22 04:55 03/20/22 04:55 03/20/22 04:55 General appearance: Present: no acute distress, well-nourished, cachectic - EENT Eyes: Present: PERRL, EOM intact - Neck Neck: Present: supple, normal ROM - Respiratory Respiratory effort: normal Respiratory: bilateral: diminished, rhonchi, negative: rales, wheezing - Cardiovascular Rhythm: regular Heart Sounds: Present: S1 & S2 - Extremities Extremities: no ischemia, No edema - Abdominal General gastrointestinal: soft, non-tender, non-distended, normal bowel sounds - Integumentary Integumentary: Present: clear, warm - Psychiatric Psychiatric: appropriate mood/affect, cooperative - Neurologic Neurologic: moves all extremities HEART Score - HEART Score Troponin: Troponin T < 0.010 ng/mL (0.00-0.029) 03/10/22 23:46 Results - Labs CBC & Chem 7: 03/14/22 07:05 03/14/22 07:05 Labs: Laboratory Last Values WBC 4.8 K/mm3 (4.5-11.0) 03/14/22 07:05 RBC 3.47 M/mm3 (3.65-5.03) L 03/14/22 07:05 Hgb 9.8 gm/dl (10.1-14.3) L 03/14/22 07:05 Hct 30.6 % (30.3-42.9) 03/14/22 07:05 MCV 88 fl (79-97) 03/14/22 07:05 MCH 28 pg (28-32) 03/14/22 07:05 MCHC 32 % (30-34) 03/14/22 07:05 RDW 16.3 % (13.2-15.2) H 03/14/22 07:05 Plt Count 310 K/mm3 (140-440) 03/14/22 07:05 Lymph % (Auto) 14.6 % (13.4-35.0) 03/12/22 05:53 Reagan % (Auto) 10.4 % (0.0-7.3) H 03/12/22 05:53 Eos % (Auto) 1.1 % (0.0-4.3) 03/12/22 05:53 Baso % (Auto) 0.9 % (0.0-1.8) 03/12/22 05:53 Lymph # (Auto) 0.7 K/mm3 (1.2-5.4) L 03/12/22 05:53 Reagan # (Auto) 0.5 K/mm3 (0.0-0.8) 03/12/22 05:53 Eos # (Auto) 0.1 K/mm3 (0.0-0.4) 03/12/22 05:53 Baso # (Auto) 0.0 K/mm3 (0.0-0.1) 03/12/22 05:53 Seg Neutrophils % 73.0 % (40.0-70.0) H 03/12/22 05:53 Seg Neutrophils # 3.7 K/mm3 (1.8-7.7) 03/12/22 05:53 Sodium 137 mmol/L (137-145) 03/14/22 07:05 Potassium 3.9 mmol/L (3.6-5.0) D 03/14/22 07:05 Chloride 100.0 mmol/L (98-107) 03/14/22 07:05 Carbon Dioxide 25 mmol/L (22-30) 03/14/22 07:05 Anion Gap 16 mmol/L 03/14/22 07:05 BUN 3 mg/dL (7-17) L 03/14/22 07:05 Creatinine 0.3 mg/dL (0.6-1.2) L 03/14/22 07:05 Estimated GFR > 60 ml/min 03/14/22 07:05 BUN/Creatinine Ratio 10 % 03/14/22 07:05 Glucose 203 mg/dL (65-100) H 03/14/22 07:05 POC Glucose 175 mg/dL (70-105) H 03/20/22 11:26 Hemoglobin A1c 9.1 % (4-6) H 03/13/22 13:12 Lactic Acid 1.50 mmol/L (0.7-2.0) 03/10/22 23:46 Calcium 8.9 mg/dL (8.4-10.2) 03/14/22 07:05 Total Bilirubin 1.10 mg/dL (0.1-1.2) 03/10/22 23:46 Direct Bilirubin 0.3 mg/dL (0-0.2) H 03/10/22 23:46 Indirect Bilirubin 0.8 mg/dL 03/10/22 23:46 AST 20 units/L (5-40) 03/10/22 23:46 ALT 13 units/L (7-56) 03/10/22 23:46 Alkaline Phosphatase 160 units/L (35-129) H 03/10/22 23:46 Troponin T < 0.010 ng/mL (0.00-0.029) 03/10/22 23:46 NT-Pro-B Natriuret Pep 55.01 pg/mL (0-450) 03/10/22 23:46 Total Protein 6.4 g/dL (6.3-8.2) 03/10/22 23:46 Albumin 3.1 g/dL (3.9-5) L 03/10/22 23:46 Albumin/Globulin Ratio 0.9 % 03/10/22 23:46 Urine Color Brandy (Yellow) 03/11/22 Unknown Urine Turbidity Clear (Clear) 03/11/22 Unknown Urine pH 5.0 (5.0-7.0) 03/11/22 Unknown Ur Specific [place] 1.020 (1.003-1.030) 03/11/22 Unknown Urine Protein 30 mg/dl mg/dL (Negative) 03/11/22 Unknown Urine Glucose (UA) 50 mg/dL (Negative) 03/11/22 Unknown Urine Ketones 20 mg/dL (Negative) 03/11/22 Unknown Urine Blood Neg (Negative) 03/11/22 Unknown Urine Nitrite Neg (Negative) 03/11/22 Unknown Urine Bilirubin Neg (Negative) 03/11/22 Unknown Urine Urobilinogen 4.0 mg/dL (<2.0) 03/11/22 Unknown Ur Leukocyte Esterase Mod (Negative) 03/11/22 Unknown Urine WBC (Auto) < 1.0 /HPF (0.0-6.0) 03/11/22 Unknown Urine RBC (Auto) < 1.0 /HPF (0.0-6.0) 03/11/22 Unknown JOHN Screen Negative (Negative) 03/11/22 15:05 Proteinase 3 (PR3) Ab <1.0 AI (<1.0) 03/11/22 15:05 Myeloperoxidase Ab <1.0 AI (<1.0) 03/11/22 15:05 HIV 1&2 Antibody Rapid Non react (Non React) 03/11/22 15:05 HIV P24 Antigen Non react (Non React) 03/11/22 15:05 TB (QFT) Gold In Tube Positive (NEGATIVE) H 03/11/22 15:05 TB Test (QFT) Nil 3.15 IU/mL 03/11/22 15:05 TB Test Mitogen - Nil 3.92 IU/mL 03/11/22 15:05 TB Test Ag - Nil 1 3.85 IU/mL 03/11/22 15:05 TB Test Ag - Nil 2 3.40 IU/mL 03/11/22 15:05 [place]/IV: Voiding Method Toilet Active Medications - Current Medications Current Medications: Generic Name Dose Route Start Last Admin Trade Name Freq PRN Reason Stop Dose Admin Acetaminophen 650 mg 03/11/22 04:01 03/17/22 17:42 Acetaminophen 325 Mg Tab PO 650 mg Q4H PRN Administration Pain MILD(1-3)/Fever >100.5/ROSEN Ethambutol HCl 1,200 mg 03/17/22 14:00 03/20/22 10:25 Ethambutol 400 Mg Tab PO 1,200 mg QDAY CALLY Administration Heparin Sodium (Porcine) 5,000 unit 03/11/22 06:00 03/20/22 06:15 Heparin 5,000 Unit/1 Ml Vial SUB-Q 5,000 unit Q8HR CALLY Administration Insulin Human Lispro 0 unit 03/13/22 16:30 03/20/22 07:52 Insulin Lispro 100 Unit/Ml SUB-Q Not Given ACHS [facility] Protocol Isoniazid 300 mg 03/17/22 14:00 03/20/22 10:24 Isoniazid 300 Mg Tab PO 300 mg QDAY CALLY Administration Magnesium Hydroxide 30 ml 03/11/22 04:01 Magnesium Hydroxide (Mom) Oral Liqd Udc PO Q4H PRN Constipation Morphine Sulfate 2 mg 03/11/22 04:01 Morphine 2 Mg/1 Ml Inj IV Q4H PRN Pain, Moderate (4-6) Morphine Sulfate 4 mg 03/11/22 04:01 Morphine 4 Mg/1 Ml Inj IV Q4H PRN Pain , Severe (7-10) Ondansetron HCl 4 mg 03/11/22 04:01 Ondansetron 4 Mg/2 Ml Inj IV Q8H PRN Nausea And Vomiting Pyrazinamide 1,500 mg 03/17/22 14:00 03/20/22 10:24 Pyrazinamide 500 Mg Tab PO 1,500 mg QDAY CALLY Administration Pyridoxine HCl 50 mg 03/17/22 14:00 03/20/22 10:25 Pyridoxine 50 Mg Tab PO 50 mg QDAY CALLY Administration Rifampin 600 mg 03/17/22 14:00 03/20/22 10:24 Rifampin 300 Mg Cap PO 600 mg QDAY CALLY Administration Sodium Chloride 10 ml 03/11/22 10:00 03/20/22 10:25 Sodium Chloride 0.9% 10 Ml Flush Syringe IV 10 ml BID CALLY Administration Sodium Chloride 10 ml 03/11/22 04:01 Sodium Chloride 0.9% 10 Ml Flush Syringe IV PRN PRN LINE FLUSH Nutrition/Malnutrition Assess - Dietary Evaluation Nutrition/Malnutrition Findings: Nutrition Notes Start: 03/11/22 13:57 Freq: Status: Active Protocol: Document 03/18/22 11:07 JARET (Rec: 03/18/22 11:11 JARET [id number]) Nutrition Notes Initial or Follow up Reassessment Current Diagnosis Diabetes,Hypertension Other Pertinent Diagnosis (+) AFB, pneu Current Diet Cardiac Labs/Tests Reviewed Pertinent Medications Reviewed Height 5 ft 7 in Weight 65.77 kg [place] Body Weight (kg) 61.36 BMI 22.7 Weight Status Appropriate Subjective/Other Information Pt has consumed 88% of meals since last assessment. Percent of energy/protein needs met: 100% energy and pro Burn Absent Trauma Absent Minimum of two criteria No #1 Nutrition Diagnosis Altered nutrition-related laboratory values Etiology DM As Evidenced by Signs and Symptoms A1C 9.1 Is patient on ventilator? No Is Patient Ambulatory and/or Out of Bed Yes REE-([facility]-ambulatory/OOB) [ [id number] [id number]] Calculation Used for Recommendations [facility] Additional Notes Pro needs 0.8-1g/k-66g/ day Fluid needs 1ml/kcal Nutrition Intervention Change Diet Order: Add consistenst CHO modifier to current diet order Goal #1 PO intakes to continue to meet at least 75% energy and pro needs Goal #2 Improved BG control Anticipated Discharge Needs: CHO controlled diet Revisit per MD consult or patient Sign Off request:
--- NOTE | 2022-03-20 12:31 | Progress Note ---
Assessment and Plan Abnormal CXR/CT scan Bilateral cavitary infiltrates Mediastinal and hilar adenopathy Weight loss and Anorexia H/O of TB exposure H/O LTBI treatment in 2019 (once weekly therapy, 4 drug therapy per patient x 12 weeks) - continue on RIPE + B6 for active TB empirically - continue airborne isolation - Sputum for AFB x3 pending - tentative bronchoscopy if & when active TB ruled out - continue care as below otherwise; - supplemental oxygen to keep O2 sats > 90% - bronchodilators (CHRIS) with pulm hygiene per RT - continue to avoid nephrotoxins, renally dose all medications - continue mobility protocols to prevent pressure ulcers - PT/OT as tolerated - Wound care per RN/WCT - continue accuchecks with glycemic control per SSI for target blood glucose < 180 mg/dL - tobacco abstinence strongly counseled at the bedside - home oxygen evaluation at discharge - prn analgesia per pain score - GI & VTE prophylaxis - Flu & pneumovax per protocol - Pulmonary out patient follow up for PFTs and optimization of respiratory status - continue other care per attending / other consultants ... re-evaluate in am & prn Subjective Date of service: 03/20/22 Principal diagnosis: Abnormal CT scan; Sebastien. Cavitary Pneumonia; Mediastinal and hilar adenopathy Interval history: Patient is seen today for: Abnormal CXR/CT scan; Bilateral cavitary infiltrates; Mediastinal and hilar adenopathy; Weight loss and Anorexia ; H/O of TB exposure; H/O LTBI treatment in 2019 Seen and examined at bedside; 24hour events reviewed; nursing and respiratory care staff consulted; no adverse overnight events reported to me; resting in bed; still awaiting AFB smear results Objective Vital Signs - 12hr 03/20/22 04:55 Temperature 97.4 F L Pulse Rate 91 H Respiratory 14 Rate Blood Pressure 125/88 O2 Sat by Pulse 93 Oximetry Constitutional: no acute distress, alert, other (thin, chronically ill looking) Eyes: non-icteric ENT: oropharynx moist Neck: supple, no lymphadenopathy Effort: normal Ascultation: Bilateral: diminished breath sounds, rhonchi Percussion: Bilateral: not dull Cardiovascular: regular rate and rhythm, other (S1,S2) Gastrointestinal: normoactive bowel sounds, soft, non-tender, tender, non- distended Integumentary: normal Extremities: no cyanosis, no edema, pulses normal Neurologic: normal mental status, non-focal exam, pupils equal and round, CN II- XII normal, motor strength normal and Psychiatric: mood appropriate, affect normal CBC and BMP: 03/14/22 07:05 03/14/22 07:05 Abnormal lab findings: Abnormal Labs 03/10/22 03/10/22 03/10/22 23:46 23:46 23:46 RBC Hgb RDW 16.4 H Lymph % (Auto) 13.1 L [place] % (Auto) 9.0 H Lymph # (Auto) 0.8 L Seg Neutrophils % 76.3 H Sodium 134 L Potassium Chloride 94.5 L BUN 6 L Creatinine 0.3 L Glucose 224 H POC Glucose Hemoglobin A1c Calcium Direct Bilirubin 0.3 H Alkaline Phosphatase 160 H Albumin 3.1 L TB (QFT) Gold In Tube 03/11/22 03/12/22 03/12/22 15:05 05:53 05:53 RBC 3.54 L Hgb RDW 16.1 H Lymph % (Auto) [place] % (Auto) 10.4 H Lymph # (Auto) 0.7 L Seg Neutrophils % 73.0 H Sodium 136 L Potassium 3.1 L Chloride BUN 2 L Creatinine 0.2 L Glucose 240 H POC Glucose Hemoglobin A1c Calcium 8.0 L Direct Bilirubin Alkaline Phosphatase Albumin TB (QFT) Gold In Tube Positive H 03/13/22 03/13/22 03/13/22 06:58 13:12 16:51 RBC Hgb RDW Lymph % (Auto) [place] % (Auto) Lymph # (Auto) Seg Neutrophils % Sodium 135 L Potassium 3.0 L Chloride 96.5 L BUN 3 L Creatinine 0.3 L Glucose 245 H POC Glucose 135 H Hemoglobin A1c 9.1 H Calcium Direct Bilirubin Alkaline Phosphatase Albumin TB (QFT) Gold In Tube 03/13/22 03/14/22 03/14/22 21:09 07:05 07:05 RBC 3.47 L Hgb 9.8 L RDW 16.3 H Lymph % (Auto) [place] % (Auto) Lymph # (Auto) Seg Neutrophils % Sodium Potassium Chloride BUN 3 L Creatinine 0.3 L Glucose 203 H POC Glucose 184 H Hemoglobin A1c Calcium Direct Bilirubin Alkaline Phosphatase Albumin TB (QFT) Gold In Tube 03/14/22 03/14/22 03/14/22 08:53 11:17 16:13 RBC Hgb RDW Lymph % (Auto) [place] % (Auto) Lymph # (Auto) Seg Neutrophils % Sodium Potassium Chloride BUN Creatinine Glucose POC Glucose 166 H 131 H 207 H Hemoglobin A1c Calcium Direct Bilirubin Alkaline Phosphatase Albumin TB (QFT) Gold In Tube 03/14/22 03/15/22 03/15/22 22:13 07:19 11:17 RBC Hgb RDW Lymph % (Auto) [place] % (Auto) Lymph # (Auto) Seg Neutrophils % Sodium Potassium Chloride BUN Creatinine Glucose POC Glucose 142 H 143 H 121 H Hemoglobin A1c Calcium Direct Bilirubin Alkaline Phosphatase Albumin TB (QFT) Gold In Tube 03/15/22 03/15/22 03/16/22 16:09 22:05 07:18 RBC Hgb RDW Lymph % (Auto) [place] % (Auto) Lymph # (Auto) Seg Neutrophils % Sodium Potassium Chloride BUN Creatinine Glucose POC Glucose 180 H 140 H 153 H Hemoglobin A1c Calcium Direct Bilirubin Alkaline Phosphatase Albumin TB (QFT) Gold In Tube 03/16/22 03/16/22 03/16/22 11:39 15:52 21:57 RBC Hgb RDW Lymph % (Auto) [place] % (Auto) Lymph # (Auto) Seg Neutrophils % Sodium Potassium Chloride BUN Creatinine Glucose POC Glucose 216 H 212 H 127 H Hemoglobin A1c Calcium Direct Bilirubin Alkaline Phosphatase Albumin TB (QFT) Gold In Tube 03/17/22 03/17/22 03/17/22 07:50 12:10 16:46 RBC Hgb RDW Lymph % (Auto) [place] % (Auto) Lymph # (Auto) Seg Neutrophils % Sodium Potassium Chloride BUN Creatinine Glucose POC Glucose 118 H 137 H 153 H Hemoglobin A1c Calcium Direct Bilirubin Alkaline Phosphatase Albumin TB (QFT) Gold In Tube 03/17/22 03/18/22 03/18/22 21:56 11:49 17:16 RBC Hgb RDW Lymph % (Auto) [place] % (Auto) Lymph # (Auto) Seg Neutrophils % Sodium Potassium Chloride BUN Creatinine Glucose POC Glucose 112 H 111 H 107 H Hemoglobin A1c Calcium Direct Bilirubin Alkaline Phosphatase Albumin TB (QFT) Gold In Tube 03/18/22 03/19/22 03/19/22 21:45 11:02 16:10 RBC Hgb RDW Lymph % (Auto) [place] % (Auto) Lymph # (Auto) Seg Neutrophils % Sodium Potassium Chloride BUN Creatinine Glucose POC Glucose 118 H 108 H 122 H Hemoglobin A1c Calcium Direct Bilirubin Alkaline Phosphatase Albumin TB (QFT) Gold In Tube 03/19/22 03/20/22 03/20/22 22:16 01:59 07:04 RBC Hgb RDW Lymph % (Auto) [place] % (Auto) Lymph # (Auto) Seg Neutrophils % Sodium Potassium Chloride BUN Creatinine Glucose POC Glucose 151 H 120 H 144 H Hemoglobin A1c Calcium Direct Bilirubin Alkaline Phosphatase Albumin TB (QFT) Gold In Tube 03/20/22 11:26 RBC Hgb RDW Lymph % (Auto) [place] % (Auto) Lymph # (Auto) Seg Neutrophils % Sodium Potassium Chloride BUN Creatinine Glucose POC Glucose 175 H Hemoglobin A1c Calcium Direct Bilirubin Alkaline Phosphatase Albumin TB (QFT) Gold In Tube Allied health notes reviewed: nursing
[2022-03-21] MEDS: HEPARIN 5,000 UNIT/1 ML VIAL SUB-Q SCH ×3 (05:37→22:26)
[2022-03-21] MEDS: INSULIN LISPRO 100 UNIT/ML SUB-Q SCH ×4 (07:14→22:42)
--- NOTE | 2022-03-21 08:20 | Progress Note ---
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 QuantiFERON gold test is positive Continue airborne isolation Continue RIPE plus B6 Health department notified Will supervise directly observed therapy Follow health department protocols at discharge --Hypokalemia; Potassium supplemented Monitor electrolytes --Hypertension Patient is normotensive off medications --History of latent TB diagnosed 2 years ago States she was treated for 12 weeks --Hyperglycemia/type 2 diabetes mellitus Check A1c 9.1 Accu-Chek sliding scale coverage ADA diet Long-acting insulin as needed -- Moderate protein calorie malnutrition; -- Moderate hypoalbuminemia; albumin 3.1 Nutrition supplements Glucerna 1 can 3 times a day Nutrition consult if needed DVT prophylaxis; Subcu heparin Plan of care reviewed with the patient and her nurse ID, pulmonary recommendations noted and appreciated Closely monitor the patient and adjust management as needed Plan of care reviewed with the patient and nurse and case management Brief history and daily hospital course; 46-year-old -[place] female with known history of asthma and hypertension presenting to the emergency room complaining of cough, shortness of breath and fever which has been ongoing for the past 3 weeks. Patient brother had h/o TB and she was treated for positive PPD. Work-up in the emergency room, chest x-ray reveals severe bilateral airspace pneumonia, cavitary with large cavitation of the left apex. CT of the chest reveals:1. Multiple large cavitary lesions identified throughout both lungs most significantly within the left upper lobe where there is a large 8 cm cavitary lesion within the left ap ex. Although somewhat nonspecific these cavitary lesions appear most suggestive of a severe infectious process, likely mycobacterial in etiology. Severe left upper lobe pneumonia. Recommend close fo llow-up after treatment to ensure resolution. 2. Severe mediastinal adenopathy is probably reactive. 3. Small bilateral pleural effusions. Patient commenced on empiric IV antibiotics for pneumonia, placed on isolation for possible pulmonary TB. Daily hospital course: 03/12: cont empiric abx, follow afb smear - if neg plan for bronch on Monday. 03/13 patient is alert and oriented, complains of productive cough with greenish sputum. Denies any chest pain, fever or chills. Lab results reviewed, ID and pulmonary notes reviewed and appreciated 03/14: AFB smear pending, bronch pending on AFB smear - reorder the test. clinically improved. follow with supportive care. 03/15; follow-up TB work-up, follow consultants's evaluation and recommendations Possible bronchoscopy per pulmonary 03/16; pulmonary evaluation noted, possible bronchoscopy once active TB is ruled out 03/17 ; ID checked with microbiology AFP sputum tests positive for AFB ID started RI PE regimen, continue airborne isolation [employer] recommendations noted and appreciated 03/19/2022; awaiting health department recommendations Continue current management 03/20/2022; patient is on 4 drug regimen Awaiting health department's recommendations Continue airborne isolation Nutrition supplements Glucerna added 03/21/2022; health department to take over directly observed therapy for TB in this patient Disposition ;case management to check with health department discharge instructions[4 directly observed therapy for TB] History Interval history: I have seen and examined the patient at the bedside Patient's chart and medications reviewed Patient feels better, in airborne isolation Vital signs noted Hospitalist Physical - Constitutional Vitals: Temp Pulse Resp BP Pulse Ox 97.8 F 93 H 14 122/85 94 03/21/22 05:16 03/21/22 05:16 03/21/22 05:16 03/21/22 05:16 03/21/22 05:16 General appearance: Present: no acute distress, well-nourished, cachectic - EENT Eyes: Present: PERRL, EOM intact - Neck Neck: Present: supple, normal ROM - Respiratory Respiratory effort: normal Respiratory: bilateral: diminished, rhonchi, negative: rales, wheezing - Cardiovascular Rhythm: regular Heart Sounds: Present: S1 & S2 - Extremities Extremities: no ischemia, No edema - Abdominal General gastrointestinal: soft, non-tender, non-distended, normal bowel sounds - Integumentary Integumentary: Present: clear, warm - Psychiatric Psychiatric: appropriate mood/affect, cooperative - Neurologic Neurologic: moves all extremities HEART Score - HEART Score Troponin: Troponin T < 0.010 ng/mL (0.00-0.029) 03/10/22 23:46 Results - Labs CBC & Chem 7: 03/14/22 07:05 03/14/22 07:05 Labs: Laboratory Last Values WBC 4.8 K/mm3 (4.5-11.0) 03/14/22 07:05 RBC 3.47 M/mm3 (3.65-5.03) L 03/14/22 07:05 Hgb 9.8 gm/dl (10.1-14.3) L 03/14/22 07:05 Hct 30.6 % (30.3-42.9) 03/14/22 07:05 MCV 88 fl (79-97) 03/14/22 07:05 MCH 28 pg (28-32) 03/14/22 07:05 MCHC 32 % (30-34) 03/14/22 07:05 RDW 16.3 % (13.2-15.2) H 03/14/22 07:05 Plt Count 310 K/mm3 (140-440) 03/14/22 07:05 Lymph % (Auto) 14.6 % (13.4-35.0) 03/12/22 05:53 [place] % (Auto) 10.4 % (0.0-7.3) H 03/12/22 05:53 Eos % (Auto) 1.1 % (0.0-4.3) 03/12/22 05:53 Baso % (Auto) 0.9 % (0.0-1.8) 03/12/22 05:53 Lymph # (Auto) 0.7 K/mm3 (1.2-5.4) L 03/12/22 05:53 [place] # (Auto) 0.5 K/mm3 (0.0-0.8) 03/12/22 05:53 Eos # (Auto) 0.1 K/mm3 (0.0-0.4) 03/12/22 05:53 Baso # (Auto) 0.0 K/mm3 (0.0-0.1) 03/12/22 05:53 Seg Neutrophils % 73.0 % (40.0-70.0) H 03/12/22 05:53 Seg Neutrophils # 3.7 K/mm3 (1.8-7.7) 03/12/22 05:53 Sodium 137 mmol/L (137-145) 03/14/22 07:05 Potassium 3.9 mmol/L (3.6-5.0) D 03/14/22 07:05 Chloride 100.0 mmol/L (98-107) 03/14/22 07:05 Carbon Dioxide 25 mmol/L (22-30) 03/14/22 07:05 Anion Gap 16 mmol/L 03/14/22 07:05 BUN 3 mg/dL (7-17) L 03/14/22 07:05 Creatinine 0.3 mg/dL (0.6-1.2) L 03/14/22 07:05 Estimated GFR > 60 ml/min 03/14/22 07:05 BUN/Creatinine Ratio 10 % 03/14/22 07:05 Glucose 203 mg/dL (65-100) H 03/14/22 07:05 POC Glucose 135 mg/dL (70-105) H 03/20/22 21:35 Hemoglobin A1c 9.1 % (4-6) H 03/13/22 13:12 Lactic Acid 1.50 mmol/L (0.7-2.0) 03/10/22 23:46 Calcium 8.9 mg/dL (8.4-10.2) 03/14/22 07:05 Total Bilirubin 1.10 mg/dL (0.1-1.2) 03/10/22 23:46 Direct Bilirubin 0.3 mg/dL (0-0.2) H 03/10/22 23:46 Indirect Bilirubin 0.8 mg/dL 03/10/22 23:46 AST 20 units/L (5-40) 03/10/22 23:46 ALT 13 units/L (7-56) 03/10/22 23:46 Alkaline Phosphatase 160 units/L (35-129) H 03/10/22 23:46 Troponin T < 0.010 ng/mL (0.00-0.029) 03/10/22 23:46 NT-Pro-B Natriuret Pep 55.01 pg/mL (0-450) 03/10/22 23:46 Total Protein 6.4 g/dL (6.3-8.2) 03/10/22 23:46 Albumin 3.1 g/dL (3.9-5) L 03/10/22 23:46 Albumin/Globulin Ratio 0.9 % 03/10/22 23:46 Urine Color Brandy (Yellow) 03/11/22 Unknown Urine Turbidity Clear (Clear) 03/11/22 Unknown Urine pH 5.0 (5.0-7.0) 03/11/22 Unknown Ur Specific [place] 1.020 (1.003-1.030) 03/11/22 Unknown Urine Protein 30 mg/dl mg/dL (Negative) 03/11/22 Unknown Urine Glucose (UA) 50 mg/dL (Negative) 03/11/22 Unknown Urine Ketones 20 mg/dL (Negative) 03/11/22 Unknown Urine Blood Neg (Negative) 03/11/22 Unknown Urine Nitrite Neg (Negative) 03/11/22 Unknown Urine Bilirubin Neg (Negative) 03/11/22 Unknown Urine Urobilinogen 4.0 mg/dL (<2.0) 03/11/22 Unknown Ur Leukocyte Esterase Mod (Negative) 03/11/22 Unknown Urine WBC (Auto) < 1.0 /HPF (0.0-6.0) 03/11/22 Unknown Urine RBC (Auto) < 1.0 /HPF (0.0-6.0) 03/11/22 Unknown JOHN Screen Negative (Negative) 03/11/22 15:05 Proteinase 3 (PR3) Ab <1.0 AI (<1.0) 03/11/22 15:05 Myeloperoxidase Ab <1.0 AI (<1.0) 03/11/22 15:05 HIV 1&2 Antibody Rapid Non react (Non React) 03/11/22 15:05 HIV P24 Antigen Non react (Non React) 03/11/22 15:05 TB (QFT) Gold In Tube Positive (NEGATIVE) H 03/11/22 15:05 TB Test (QFT) Nil 3.15 IU/mL 03/11/22 15:05 TB Test Mitogen - Nil 3.92 IU/mL 03/11/22 15:05 TB Test Ag - Nil 1 3.85 IU/mL 03/11/22 15:05 TB Test Ag - Nil 2 3.40 IU/mL 03/11/22 15:05 [place]/IV: Voiding Method Toilet Active Medications - Current Medications Current Medications: Generic Name Dose Route Start Last Admin Trade Name Freq PRN Reason Stop Dose Admin Acetaminophen 650 mg 03/11/22 04:01 03/17/22 17:42 Acetaminophen 325 Mg Tab PO 650 mg Q4H PRN Administration Pain MILD(1-3)/Fever >100.5/ROSEN Ethambutol HCl 1,200 mg 03/17/22 14:00 03/20/22 10:25 Ethambutol 400 Mg Tab PO 1,200 mg QDAY CALLY Administration Heparin Sodium (Porcine) 5,000 unit 03/11/22 06:00 03/21/22 05:37 Heparin 5,000 Unit/1 Ml Vial SUB-Q 5,000 unit Q8HR CALLY Administration Insulin Human Lispro 0 unit 03/13/22 16:30 03/20/22 23:30 Insulin Lispro 100 Unit/Ml SUB-Q Not Given ACHS [facility] Protocol Isoniazid 300 mg 03/17/22 14:00 03/20/22 10:24 Isoniazid 300 Mg Tab PO 300 mg QDAY CALLY Administration Magnesium Hydroxide 30 ml 03/11/22 04:01 Magnesium Hydroxide (Mom) Oral Liqd Udc PO Q4H PRN Constipation Morphine Sulfate 2 mg 03/11/22 04:01 Morphine 2 Mg/1 Ml Inj IV Q4H PRN Pain, Moderate (4-6) Morphine Sulfate 4 mg 03/11/22 04:01 Morphine 4 Mg/1 Ml Inj IV Q4H PRN Pain , Severe (7-10) Ondansetron HCl 4 mg 03/11/22 04:01 Ondansetron 4 Mg/2 Ml Inj IV Q8H PRN Nausea And Vomiting Pyrazinamide 1,500 mg 03/17/22 14:00 03/20/22 10:24 Pyrazinamide 500 Mg Tab PO 1,500 mg QDAY CALLY Administration Pyridoxine HCl 50 mg 03/17/22 14:00 03/20/22 10:25 Pyridoxine 50 Mg Tab PO 50 mg QDAY CALLY Administration Rifampin 600 mg 03/17/22 14:00 03/20/22 10:24 Rifampin 300 Mg Cap PO 600 mg QDAY CALLY Administration Sodium Chloride 10 ml 03/11/22 10:00 03/20/22 22:33 Sodium Chloride 0.9% 10 Ml Flush Syringe IV 10 ml BID CALLY Administration Sodium Chloride 10 ml 03/11/22 04:01 Sodium Chloride 0.9% 10 Ml Flush Syringe IV PRN PRN LINE FLUSH Nutrition/Malnutrition Assess - Dietary Evaluation Nutrition/Malnutrition Findings: Nutrition Notes Start: 03/11/22 13:57 Freq: Status: Active Protocol: Document 03/18/22 11:07 JARET (Rec: 03/18/22 11:11 JARET [id number]) Nutrition Notes Initial or Follow up Reassessment Current Diagnosis Diabetes,Hypertension Other Pertinent Diagnosis (+) AFB, pneu Current Diet Cardiac Labs/Tests Reviewed Pertinent Medications Reviewed Height 5 ft 7 in Weight 65.77 kg [place] Body Weight (kg) 61.36 BMI 22.7 Weight Status Appropriate Subjective/Other Information Pt has consumed 88% of meals since last assessment. Percent of energy/protein needs met: 100% energy and pro Burn Absent Trauma Absent Minimum of two criteria No #1 Nutrition Diagnosis Altered nutrition-related laboratory values Etiology DM As Evidenced by Signs and Symptoms A1C 9.1 Is patient on ventilator? No Is Patient Ambulatory and/or Out of Bed Yes REE-([facility]-ambulatory/OOB) [ 1729.429 [id number]] Calculation Used for Recommendations [facility] Additional Notes Pro needs 0.8-1g/k-66g/ day Fluid needs 1ml/kcal Nutrition Intervention Change Diet Order: Add consistenst CHO modifier to current diet order Goal #1 PO intakes to continue to meet at least 75% energy and pro needs Goal #2 Improved BG control Anticipated Discharge Needs: CHO controlled diet Revisit per MD consult or patient Sign Off request:
[2022-03-21] MEDS: rifAMPin 300 MG CAP PO SCH (11:50)
[2022-03-21] MEDS: ISONIAZID 300 MG TAB PO SCH (11:51)
[2022-03-21] MEDS: ETHAMBUTOL 400 MG TAB PO SCH (11:52)
[2022-03-21] MEDS: PYRIDOXINE 50 MG TAB PO SCH (11:53)
[2022-03-21] MEDS: PYRAZINAMIDE 500 MG TAB PO SCH (11:53)
--- NOTE | 2022-03-21 13:57 | Progress Note ---
Assessment and Plan Abnormal CXR/CT scan Bilateral cavitary infiltrates Mediastinal and hilar adenopathy Weight loss and Anorexia H/O of TB exposure H/O LTBI treatment in 2019 (once weekly therapy, 4 drug therapy per patient x 12 weeks) - bronchoscopy cancelled - continue on RIPE + B6 for active TB empirically - continue airborne isolation - notify [facility] - continue care as below otherwise; - supplemental oxygen to keep O2 sats > 90% - bronchodilators (CHRIS) with pulm hygiene per RT - continue to avoid nephrotoxins, renally dose all medications - continue mobility protocols to prevent pressure ulcers - PT/OT as tolerated - Wound care per RN/WCT - continue accuchecks with glycemic control per SSI for target blood glucose < 180 mg/dL - tobacco abstinence strongly counseled at the bedside - home oxygen evaluation at discharge - prn analgesia per pain score - GI & VTE prophylaxis - Flu & pneumovax per protocol - Pulmonary out patient follow up for PFTs and optimization of respiratory status - continue other care per attending / other consultants ... re-evaluate in am & prn Subjective Date of service: 03/21/22 Principal diagnosis: Abnormal CT scan; Sebastien. Cavitary Pneumonia; Mediastinal and hilar adenopathy Interval history: Patient is seen today for: Abnormal CXR/CT scan; Bilateral cavitary infiltrates; Mediastinal and hilar adenopathy; Weight loss and Anorexia ; H/O of TB exposure; H/O LTBI treatment in 2019 Seen and examined at bedside; 24hour events reviewed; nursing and respiratory care staff consulted; no adverse overnight events reported to me; resting in bed; AFB smear result came back 4+ positive; denies hemoptysis Objective Vital Signs - 12hr 03/21/22 03/21/22 03/21/22 05:16 10:00 12:09 Temperature 97.8 F 98.8 F Pulse Rate 93 H 92 H Respiratory 14 18 Rate Blood Pressure 122/85 129/94 O2 Sat by Pulse 94 100 98 Oximetry Constitutional: no acute distress, alert, other (thin, chronically ill looking) Eyes: non-icteric ENT: oropharynx moist Neck: supple, no lymphadenopathy Effort: normal Ascultation: Bilateral: diminished breath sounds, rhonchi Percussion: Bilateral: not dull Cardiovascular: regular rate and rhythm, other (S1,S2) Gastrointestinal: normoactive bowel sounds, soft, non-tender, tender, non- distended Integumentary: normal Extremities: no cyanosis, no edema, pulses normal Neurologic: normal mental status, non-focal exam, pupils equal and round, CN II- XII normal, motor strength normal and Psychiatric: mood appropriate, affect normal CBC and BMP: 03/14/22 07:05 03/14/22 07:05 Abnormal lab findings: Abnormal Labs 03/10/22 03/10/22 03/10/22 23:46 23:46 23:46 RBC Hgb RDW 16.4 H Lymph % (Auto) 13.1 L [place] % (Auto) 9.0 H Lymph # (Auto) 0.8 L Seg Neutrophils % 76.3 H Sodium 134 L Potassium Chloride 94.5 L BUN 6 L Creatinine 0.3 L Glucose 224 H POC Glucose Hemoglobin A1c Calcium Direct Bilirubin 0.3 H Alkaline Phosphatase 160 H Albumin 3.1 L TB (QFT) Gold In Tube 03/11/22 03/12/22 03/12/22 15:05 05:53 05:53 RBC 3.54 L Hgb RDW 16.1 H Lymph % (Auto) [place] % (Auto) 10.4 H Lymph # (Auto) 0.7 L Seg Neutrophils % 73.0 H Sodium 136 L Potassium 3.1 L Chloride BUN 2 L Creatinine 0.2 L Glucose 240 H POC Glucose Hemoglobin A1c Calcium 8.0 L Direct Bilirubin Alkaline Phosphatase Albumin TB (QFT) Gold In Tube Positive H 03/13/22 03/13/22 03/13/22 06:58 13:12 16:51 RBC Hgb RDW Lymph % (Auto) [place] % (Auto) Lymph # (Auto) Seg Neutrophils % Sodium 135 L Potassium 3.0 L Chloride 96.5 L BUN 3 L Creatinine 0.3 L Glucose 245 H POC Glucose 135 H Hemoglobin A1c 9.1 H Calcium Direct Bilirubin Alkaline Phosphatase Albumin TB (QFT) Gold In Tube 03/13/22 03/14/22 03/14/22 21:09 07:05 07:05 RBC 3.47 L Hgb 9.8 L RDW 16.3 H Lymph % (Auto) [place] % (Auto) Lymph # (Auto) Seg Neutrophils % Sodium Potassium Chloride BUN 3 L Creatinine 0.3 L Glucose 203 H POC Glucose 184 H Hemoglobin A1c Calcium Direct Bilirubin Alkaline Phosphatase Albumin TB (QFT) Gold In Tube 03/14/22 03/14/22 03/14/22 08:53 11:17 16:13 RBC Hgb RDW Lymph % (Auto) [place] % (Auto) Lymph # (Auto) Seg Neutrophils % Sodium Potassium Chloride BUN Creatinine Glucose POC Glucose 166 H 131 H 207 H Hemoglobin A1c Calcium Direct Bilirubin Alkaline Phosphatase Albumin TB (QFT) Gold In Tube 03/14/22 03/15/22 03/15/22 22:13 07:19 11:17 RBC Hgb RDW Lymph % (Auto) [place] % (Auto) Lymph # (Auto) Seg Neutrophils % Sodium Potassium Chloride BUN Creatinine Glucose POC Glucose 142 H 143 H 121 H Hemoglobin A1c Calcium Direct Bilirubin Alkaline Phosphatase Albumin TB (QFT) Gold In Tube 03/15/22 03/15/22 03/16/22 16:09 22:05 07:18 RBC Hgb RDW Lymph % (Auto) [place] % (Auto) Lymph # (Auto) Seg Neutrophils % Sodium Potassium Chloride BUN Creatinine Glucose POC Glucose 180 H 140 H 153 H Hemoglobin A1c Calcium Direct Bilirubin Alkaline Phosphatase Albumin TB (QFT) Gold In Tube 03/16/22 03/16/22 03/16/22 11:39 15:52 21:57 RBC Hgb RDW Lymph % (Auto) [place] % (Auto) Lymph # (Auto) Seg Neutrophils % Sodium Potassium Chloride BUN Creatinine Glucose POC Glucose 216 H 212 H 127 H Hemoglobin A1c Calcium Direct Bilirubin Alkaline Phosphatase Albumin TB (QFT) Gold In Tube 03/17/22 03/17/22 03/17/22 07:50 12:10 16:46 RBC Hgb RDW Lymph % (Auto) [place] % (Auto) Lymph # (Auto) Seg Neutrophils % Sodium Potassium Chloride BUN Creatinine Glucose POC Glucose 118 H 137 H 153 H Hemoglobin A1c Calcium Direct Bilirubin Alkaline Phosphatase Albumin TB (QFT) Gold In Tube 03/17/22 03/18/22 03/18/22 21:56 11:49 17:16 RBC Hgb RDW Lymph % (Auto) [place] % (Auto) Lymph # (Auto) Seg Neutrophils % Sodium Potassium Chloride BUN Creatinine Glucose POC Glucose 112 H 111 H 107 H Hemoglobin A1c Calcium Direct Bilirubin Alkaline Phosphatase Albumin TB (QFT) Gold In Tube 03/18/22 03/19/22 03/19/22 21:45 11:02 16:10 RBC Hgb RDW Lymph % (Auto) [place] % (Auto) Lymph # (Auto) Seg Neutrophils % Sodium Potassium Chloride BUN Creatinine Glucose POC Glucose 118 H 108 H 122 H Hemoglobin A1c Calcium Direct Bilirubin Alkaline Phosphatase Albumin TB (QFT) Gold In Tube 03/19/22 03/20/22 03/20/22 22:16 01:59 07:04 RBC Hgb RDW Lymph % (Auto) [place] % (Auto) Lymph # (Auto) Seg Neutrophils % Sodium Potassium Chloride BUN Creatinine Glucose POC Glucose 151 H 120 H 144 H Hemoglobin A1c Calcium Direct Bilirubin Alkaline Phosphatase Albumin TB (QFT) Gold In Tube 03/20/22 03/20/22 03/20/22 11:26 17:00 21:35 RBC Hgb RDW Lymph % (Auto) [place] % (Auto) Lymph # (Auto) Seg Neutrophils % Sodium Potassium Chloride BUN Creatinine Glucose POC Glucose 175 H 136 H 135 H Hemoglobin A1c Calcium Direct Bilirubin Alkaline Phosphatase Albumin TB (QFT) Gold In Tube 03/21/22 03/21/22 07:37 12:23 RBC Hgb RDW Lymph % (Auto) [place] % (Auto) Lymph # (Auto) Seg Neutrophils % Sodium Potassium Chloride BUN Creatinine Glucose POC Glucose 124 H 136 H Hemoglobin A1c Calcium Direct Bilirubin Alkaline Phosphatase Albumin TB (QFT) Gold In Tube Allied health notes reviewed: nursing
--- NOTE | 2022-03-21 15:19 | Progress Note ---
Assessment and Plan Cultures: 03/10/2022 blood culture: no growth 03/11/2022 HIV: Nonreactive 03/12/2022 sputum culture: normal resp zay 03/11/2022 ANCA, JOHN: Negative 03/11/2022 TB QuantiFERON gold: Positive 03/13/2022 sputum AFB: Smear with 4+ AFB A/P: 46-year-old female with asthma, hypertension admitted with fever, cough, greenish sputum production going on for about 3 months beginning in late November: #Bilateral cavitary pneumonia, left greater than right, likely secondary to pulmonary tuberculosis #Fevers likely secondary to above. #Weight loss, anorexia with history of TB exposure #History of LTBI treatment about 2 years ago with once weekly therapy x 12 weeks (likely INH + Rifapentine) Recs: -continue airborne precautions, F/U AFB culture and TB DNA Probe -continue PO RIPE + B6, D5 -Case management consulted for [facility] to take over directly observed therapy for TB once discharged. Once this is arranged, patient can be discharged from ID standpoint and will continue to follow with the Health Department -can follow up with ID clinic PRN Infectious disease will sign off, please call with any questions. Mayelin Gar MD [facility] ([facility] O: [phone] F: [phone] Subjective Date of service: 03/21/22 Principal diagnosis: Abnormal CT scan; Sebastien. Cavitary Pneumonia; Mediastinal and hilar adenopathy Interval history: Afebrile over the weekend, white count normal. Objective - Exam Narrative Exam: Physical Exam: Constitutional: Alert, cooperative. No acute distress Head, Ears, Nose: Normocephalic, atraumatic. External ears, nose normal Eyes: Conjunctivae/corneas clear. No icterus. No ptosis. Neck: Supple, no meningeal signs Cardiovascular: S1, S2 + Respiratory: AE fair bilaterally GI: Soft, non-tender; bowel sounds normal. No peritoneal signs Musculoskeletal: No pedal edema, no cyanosis. Skin: No rash or abscess Hem/Lymphatic: No palpable cervical or supraclavicular nodes. Psych: Mood ok. Affect normal Neurological: Awake, alert, oriented. No gross abnormality - Constitutional Vitals: Vital Signs Temp Pulse Resp BP Pulse Ox 98.8 F 92 H 18 129/94 98 03/21/22 12:09 03/21/22 12:09 03/21/22 12:09 03/21/22 12:09 03/21/22 12:09 Temperature -Last 24 Hours Temperature 98.8 F Temperature 97.8 F Temperature 98.6 F Temperature 98.0 F - Labs CBC & Chem 7: 03/14/22 07:05 03/14/22 07:05 Labs: Abnormal lab results 03/20/22 03/20/22 03/21/22 Range/Units 17:00 21:35 07:37 POC Glucose 136 H 135 H 124 H (70-105) mg/dL 03/21/22 Range/Units 12:23 POC Glucose 136 H (70-105) mg/dL
[2022-03-22 06:30] LABS: Basophils % (Auto) 0.6 % (0.0-1.8); Eosinophils # (Auto) 0.1 K/mm3 (0.0-0.4); Eosinophils % (Auto) 2.7 % (0.0-4.3); Hemoglobin 9.2 gm/dl (10.1-14.3); Lymphocytes # (Auto) 0.7 K/mm3 (1.2-5.4); Lymphocytes % (Auto) 13.2 % (13.4-35.0); Mean Corpuscular HGB Conc 32 % (30-34); Mean Corpuscular Volume 89 fl (79-97); Monocytes # (Auto) 0.4 K/mm3 (0.0-0.8); Monocytes % (Auto) 7.6 % (0.0-7.3); Platelet Count 368 K/mm3 (140-440); Red Blood Count 3.27 M/mm3 (3.65-5.03)
[2022-03-22] MEDS: HEPARIN 5,000 UNIT/1 ML VIAL SUB-Q SCH ×2 (06:34→06:35)
[2022-03-22 06:45] VITALS: BP 123/78
[2022-03-22 06:51] LABS: Alanine Aminotransferase 10 units/L (7-56); Albumin 3.2 g/dL (3.9-5); Blood Urea Nitrogen 3 mg/dL (7-17); Calcium 9.3 mg/dL (8.4-10.2); Hemolysis Index 2
[2022-03-22 07:10] LABS: BUN/Creatinine Ratio 15
[2022-03-22] MEDS: INSULIN LISPRO 100 UNIT/ML SUB-Q SCH ×2 (08:08→13:10)
--- NOTE | 2022-03-22 12:04 | Event Note ---
Date: 03/22/22
[2022-03-22] MEDS: ETHAMBUTOL 400 MG TAB PO SCH (12:52)
[2022-03-22] MEDS: PYRAZINAMIDE 500 MG TAB PO SCH (12:53)
[2022-03-22] MEDS: rifAMPin 300 MG CAP PO SCH (12:53)
[2022-03-22] MEDS: ISONIAZID 300 MG TAB PO SCH (12:54)
[2022-03-22] MEDS: PYRIDOXINE 50 MG TAB PO SCH (12:54)
--- NOTE | 2022-03-22 15:12 | Discharge Summary ---
Providers - Providers Date of Admission: 03/11/22 04:02 Date of discharge: 03/22/22 Attending physician: REGAN MUÑOZ 03/11/22 04:01 Consult to Physician [CONS] Routine Comment: Consulting Provider: ANJELICA RYAN Physician Instructions: Reason For Exam: Cavitary lung lesion, pneumonia 03/11/22 06:39 Consult to Physician [CONS] Routine Comment: Consulting Provider: JAJA SAAVEDRA Physician Instructions: Reason For Exam: Pneumonia, pulmonary cavitary lesions 03/17/22 12:04 Consult to Case Management [CONS] Routine Services Needed at Discharge: Other Notified:: CM Comment:: TB treatment via Health Department Additional Physician Instructions: [facility] for initiation of directly observed TB treatment Primary care physician: JC HUERTAS Hospitalization Condition: Stable Hospital course: -- AFB smear positive for AFB; AFB cultures pending Pulmonary TB, currently on RI PE plus vitamin B6 Case management orders placed for initiation of directly observed therapy via health department Follow health department recommendations --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 QuantiFERON gold test is positive Continue airborne isolation Continue RIPE plus B6 Health department notified Will supervise directly observed therapy Follow health department protocols at discharge --Hypokalemia; Potassium supplemented Monitor electrolytes --Hypertension Patient is normotensive off medications --History of latent TB diagnosed 2 years ago States she was treated for 12 weeks --Hyperglycemia/type 2 diabetes mellitus Check A1c 9.1 Accu-Chek sliding scale coverage ADA diet BG was managed with dietary restriction SSI as needed -- Moderate protein calorie malnutrition; -- Moderate hypoalbuminemia; albumin 3.1 Nutrition supplements Glucerna 1 can 3 times a day Nutrition consult if needed DVT prophylaxis; Subcu heparin Plan of care reviewed with the patient and her nurse ID, pulmonary recommendations noted and appreciated Closely monitor the patient and adjust management as needed Plan of care reviewed with the patient and nurse and case management Brief history and daily hospital course; 46-year-old -Vin[place] female with known history of asthma and hypertension presenting to the emergency room complaining of cough, shortness of breath and fever which has been ongoing for the past 3 weeks. Patient brother had h/o TB and she was treated for positive PPD. Work-up in the emergency room, chest x-ray reveals severe bilateral airspace pneumonia, cavitary with large cavitation of the left apex. CT of the chest reveals:1. Multiple large cavitary lesions identified throughout both lungs most significantly within the left upper lobe where there is a large 8 cm cavitary lesion within the left apex. Although somewhat nonspecific these cavitary lesions appear most suggestive of a severe infectious process, likely mycobacterial in etiology. Severe left upper lobe pneumonia. Recommend close follow-up after treatment to ensure resolution. 2. Severe mediastinal adenopathy is probably reactive. 3. Small bilateral pleural effusions. Patient commenced on empiric IV antibiotics for pneumonia, placed on isolation for possible pulmonary TB. Daily hospital course: 03/12: cont empiric abx, follow afb smear - if neg plan for bronch on Monday. 03/13 patient is alert and oriented, complains of productive cough with greenish sputum. Denies any chest pain, fever or chills. Lab results reviewed, ID and pulmonary notes reviewed and appreciated 03/14: AFB smear pending, bronch pending on AFB smear - reorder the test. clinically improved. follow with supportive care. 03/15; follow-up TB work-up, follow consultants's evaluation and recommendations Possible bronchoscopy per pulmonary 03/16; pulmonary evaluation noted, possible bronchoscopy once active TB is ruled out 03/17 ; ID checked with microbiology AFP sputum tests positive for AFB ID started RI PE regimen, continue airborne isolation Outsole Flexer recommendations noted and appreciated 03/19/2022; awaiting health department recommendations Continue current management 03/20/2022; patient is on 4 drug regimen Awaiting health department's recommendations Continue airborne isolation Nutrition supplements Glucerna added 03/21/2022; health department to take over directly observed therapy for TB in this patient Disposition ;case management to check with health department discharge instructions[4 directly observed therapy for TB 03/22: clinically stable, d/c today with outpt f/u Health department Disposition: HOME / SELF CARE / HOMELESS Final Discharge Diagnosis (Prints w/discharge instructions): --Bilateral cavitary pulmonary tuberculosis. --Hypokalemia;. --Hypertension. --type 2 diabetes mellitus. ---- Moderate protein calorie malnutrition Time spent for discharge: 30 minutes Core Measure Documentation - Palliative Care Palliative Care/ Comfort Measures: Not Applicable - Core Measures Any of the following diagnoses?: none Exam - Physical Exam Narrative exam: GENERAL: AAF lying on bed appeared to be in no discomfort. HEENT: Normocephalic. Atraumatic. No conjunctival congestion or icterus. Patient has moist mucous membranes. NECK: Supple. Trachea midline. CHEST/LUNGS: breathing nonlabored. pt on RA HEART/CARDIOVASCULAR: Regular in rate and rhythm. S1 and S2 positive. ABDOMEN: Abdomen is soft, nontender. Patient has normal bowel sounds. SKIN: There is no rash. Warm and dry. NEURO: No focal motor deficit. Follows command. MUSCULOSKELETAL: No joint effusion or tenderness. EXTRIMITY: No edema, no cyanosis or clubbing. PSYCH: Cooperative. - Constitutional Vitals: Temp Pulse Resp BP Pulse Ox 98.9 F 93 H 18 123/78 92 03/22/22 04:42 03/22/22 04:42 03/22/22 04:42 03/22/22 04:42 03/22/22 04:42 Plan Activity: advance as tolerated Weight Bearing Status: Weight Bear as Tolerated Diet: diabetic Special Instructions: record blood sugar diary Additional Instructions: f/u with health department for TB treatment Follow up with: JC HUERTAS MD [Primary Care Provider] - 3-5 Days
== END 2022-03-22 18:05 | disposition home or self-care (01) | DRG 178 ==
LOC: ED 20:59 → 3A 03-11 04:02
PROVIDERS: ADMIT Internal Medicine Geriatric Medicine; ATTEND Internal Medicine
DX: A15.8 Other respiratory tuberculosis (principal); E44.0 Moderate protein-calorie malnutrition; J16.8 Pneumonia due to other specified infectious organisms; J98.4 Other disorders of lung; Z88.8 Allergy status to other drugs, medicaments and biological substances; I10 Essential (primary) hypertension; Z68.22 Body mass index [BMI] 22.0-22.9, adult; E87.6 Hypokalemia; E11.65 Type 2 diabetes mellitus with hyperglycemia
CPT/HCPCS: 36415; 71045; 71260; 80048; 80053; 80076; 81001; 82140; 82164; 82962; 83036; 83735; 83880; 84100; 84484; 85025; 85027; 86021; 86038; 87040; 87070; 87205; 87806; G0378; Q9967; J0456; J0696; J1644; J1815; J2543; J7030

== ENCOUNTER 2022-04-18 07:25 | Emergency (ER) | payer OTHER ==
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
[2022-04-18 08:43] LABS: Basophils % (Auto) 0.7 % (0.0-1.8); Eosinophils % (Auto) 0.7 % (0.0-4.3); Hematocrit 35.1 % (30.3-42.9); Hemoglobin 11.3 gm/dl (10.1-14.3); Lymphocytes # (Auto) 0.6 K/mm3 (1.2-5.4); Lymphocytes % (Auto) 14.4 % (13.4-35.0); Mean Corpuscular HGB Conc 32 % (30-34); Mean Corpuscular Volume 87 fl (79-97); Monocytes # (Auto) 0.5 K/mm3 (0.0-0.8); Monocytes % (Auto) 10.9 % (0.0-7.3); Platelet Count 283 K/mm3 (140-440); Red Blood Count 4.02 M/mm3 (3.65-5.03); Red Cell Distribution Width 16.2 % (13.2-15.2)
[2022-04-18 09:13] LABS: Alanine Aminotransferase 9 units/L (7-56); Albumin 3.5 g/dL (3.9-5); Blood Urea Nitrogen 6 mg/dL (7-17); Calcium 9.2 mg/dL (8.4-10.2); Hemolysis Index 2
[2022-04-18] MEDS: ONDANSETRON 4 MG/2 ML INJ IV ONE (09:15)
[2022-04-18] MEDS: fentaNYL 100 MCG/2 ML INJ IV ONE (09:15)
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
[2022-04-18 09:17] LABS: Creatine Kinase MB < 1.0 ng/mL (0.0-4.0)
--- NOTE | 2022-04-18 09:17 | XRay Report ---
CHEST 1 VIEW 04/18/2022 8:02 AM INDICATION / CLINICAL INFORMATION: chest pain. COMPARISON: 03/11/2022 FINDINGS: SUPPORT DEVICES: None. HEART / MEDIASTINUM: No significant abnormality. LUNGS / PLEURA: Extensive cystic disease and consolidation throughout the left lung is unchanged. Pat ector airspace densities and minimal cystic disease in the right lung is also stable. Small pleural eff usions are stable. No pneumothorax. ADDITIONAL FINDINGS: No significant additional findings. IMPRESSION: No significant change since 03/11/2022. Signer Name: Sabas Damon Jr, MD Signed: 04/18/2022 9:12 AM Workstation Name: [id number]
[2022-04-18 09:18] LABS: BUN/Creatinine Ratio 20
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
[2022-04-18 13:04] VITALS: BP 121/67
--- NOTE | 2022-04-20 12:04 | Electrocardiograph Report ---
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
== END 2022-04-18 13:03 | disposition home or self-care (01) ==
LOC: ED 07:25
DX: S16.1XXA Strain of muscle, fascia and tendon at neck level, initial encounter (principal); S20.219A Contusion of unspecified front wall of thorax, initial encounter; S30.1XXA Contusion of abdominal wall, initial encounter; I10 Essential (primary) hypertension; J45.909 Unspecified asthma, uncomplicated; Z91.09 Other allergy status, other than to drugs and biological substances; V89.2XXA Person injured in unspecified motor-vehicle accident, traffic, initial encounter; Y93.89 Activity, other specified; Y92.89 Other specified places as the place of occurrence of the external cause; Y99.8 Other external cause status
CPT/HCPCS: 36415; 71045; 72125; 73590; 74177; 80053; 82550; 82553; 84484; 85025; 93005; 96374; 96375; 99285; J2405; J3010; Q9967